=== PATIENT | female | born 2000 | race Caucasian/White ===

== ENCOUNTER 2024-06-23 09:55 | Outpatient (OUT) | payer BC, SELFPAY ==
--- NOTE | 2024-06-23 10:00 | US_ITS ---
[address] [address] Patient Name: EMILY ESCALERA MRN: [id number] date: 2000 Sex: F Assigned Patient Location: [facility] Current Patient Location: [facility] Accession/Order Number: [id number] Exam Date: 06/23/2024 10:01 Report Date: 06/23/2024 11:44 At the request of: DOMENICO AGUILERA Procedure: US OB transvaginal EXAMINATION: US OB transvaginal HISTORY: MISSED MENSES COMPARISON: No relevant comparison available. FINDINGS: Transvaginal imaging Carrasco intrauterine gestation Gestational sac: 3.11 cm, 8 weeks 0 days CRL: 2.01 cm, 8 weeks 4 days Yolk sac: 5.8 mm Heart rate: 174 beats minute Cervix: Closed, 4.1 cm The uterus is normal, anteverted, anteflexed The right ovary is normal. The left ovary is not visualized Clinical age: 10 weeks 0 days Clinical MONTEZ: 01/15/2025 Ultrasound age: 8 weeks 4 days Ultrasound MONTEZ: 01/29/2025 US/US OB transvaginal IMPRESSION: Viable carrasco intrauterine gestation measuring 8 weeks 4 days Electronically authenticated by: MAY PATTEN Date: 06/23/2024 11:44
== END 2024-06-23 09:56 | disposition home or self-care (01) ==
LOC: NOMS 09:56
PROVIDERS: Visit Provider Obstetrics & Gynecology
DX: Z34.91 Encounter for supervision of normal pregnancy, unspecified, first trimester (principal); Z3A.08 8 weeks gestation of pregnancy; N92.6 Irregular menstruation, unspecified
CPT/HCPCS: 76817

== ENCOUNTER 2024-07-20 16:13 | Outpatient (OUT) | payer BC, SELFPAY ==
[2024-07-20 16:46] LABS: Basophils Absolute Auto 0.1 10^3/uL (0.0-0.1); Basophils Percent Auto 0.4 % (0.2-2.0); Eosinophils Absolute Auto 0.1 10^3/uL (0.0-0.7); Eosinophils Percent Auto 0.4 % (0.9-7.0); Hematocrit 41.7 % (36.0-48.0); Hemoglobin 13.9 g/dL (12.0-16.0); Immature Granulocytes Abs Auto 0.05 10^3/uL (0.00-0.03); Immature Granulocytes Pct Auto 0.4 % (0.0-0.5); Lymphocytes Absolute Auto 3.7 10^3/uL (1.2-3.8); Lymphocytes Percent Auto 29.6 % (20.5-60.0); Mean Corpuscular HGB Conc 33.3 g/dL (29.9-35.2); Mean Corpuscular Volume 92.9 fL (81.0-99.0); Mean Platelet Volume 9.9 fL (9.5-13.5); Monocytes Absolute Auto 0.8 10^3/uL (0.3-0.8); Monocytes Percent Auto 6.5 % (1.7-12.0); Neutrophils Absolute Auto 7.9 10^3/uL (1.4-6.5); Neutrophils Percent Auto 62.7 % (43.0-75.0); Platelet Count 326 10^3/uL (150-450); Red Blood Count 4.49 10^6/uL (4.20-5.40); Red Cell Distribution Width 12.6 % (11.0-15.0); White Blood Count 12.5 10^3/uL (4.0-11.0)
[2024-07-20 17:00] LABS: BOX Test Reference Lab UNITY; BOX Test Sent Out UNITY
[2024-07-20 17:06] LABS: Estimated Average Glucose 97 mg/dL
[2024-07-20 17:26] LABS: Amphetamine Screen Urine NEGATIVE (NEGATIVE); Barbiturates Screen Urine NEGATIVE (NEGATIVE); Benzodiazepines Screen Urine NEGATIVE (NEGATIVE); Buprenorphine Screen Urine NEGATIVE (NEGATIVE); Cannabinoid Screen Urine NEGATIVE (NEGATIVE); Cocaine Screen Urine NEGATIVE (NEGATIVE); Methadone Screen Urine NEGATIVE (NEGATIVE); Methamphetamines Screen Urine NEGATIVE (NEGATIVE); Opiate Screen Urine NEGATIVE (NEGATIVE); Oxycodone Screen Urine NEGATIVE (NEGATIVE); Phencyclidine Screen Urine NEGATIVE (NEGATIVE); Tricyclic Antidepressant Urine NEGATIVE (NEGATIVE)
[2024-07-22 06:13] LABS: HBsAg Screen Negative (Negative); HCV Ab Non Reactive (Non Reactive); HIV Ab/p24 Ag Screen Non Reactive (Non Reactive)
[2024-07-22 08:19] LABS: Rubella Antibodies, IgG 4.34 index (Immune >0.99)
[2024-07-22 10:15] LABS: Rapid Plasma Reagin, Quant Non Reactive titer (NonRea<1:1)
== END 2024-07-20 16:14 | disposition home or self-care (01) ==
LOC: LAB 16:19
PROVIDERS: Visit Provider Obstetrics & Gynecology
DX: Z34.91 Encounter for supervision of normal pregnancy, unspecified, first trimester (principal); Z36.0 Encounter for antenatal screening for chromosomal anomalies; N92.6 Irregular menstruation, unspecified
CPT/HCPCS: 36415; 80307; 83036; 85025; 86592; 86762; 86803; 86850; 86900; 86901; 87086; 87340; 87389

== ENCOUNTER 2024-09-11 18:31 | Emergency (ER) | payer BC, SELFPAY ==
[2024-09-11 18:38] VITALS: BP 150/97; PULSE 90; TEMP 36.7; O2SAT 100; BMI 78.1
[2024-09-11 18:50] VITALS: O2SAT 99
--- NOTE | 2024-09-11 18:51 | XR_ITS ---
[address] [address] Patient Name: EMILY ESCALERA MRN: [id number] date: 2000 Sex: F Assigned Patient Location: ER Current Patient Location: Accession/Order Number: [id number] Exam Date: 09/11/2024 19:16 Report Date: 09/11/2024 20:24 At the request of: BRANDON CARRINGTON Procedure: XR chest 1V EXAM: XR chest 1V HISTORY: Cough COMPARISON: None. TECHNIQUE: AP upright chest x-ray FINDINGS: Lungs clear without infiltrate or edema. Normal heart size and mediastinal contour. No pleural effusion or pneumothorax. XR/XR chest 1V IMPRESSION: Negative chest x-ray, no acute abnormality. Clear lungs. Electronically authenticated by: YU COFFMAN Date: 09/11/2024 20:24
--- NOTE | 2024-09-11 18:51 | ECG_ITS ---
[facility] Test Date: 2024-09-11 Pat Name: EMILY ESCALERA Department: Room: - Gender: Female Insurance Counsel: : 2000 Requested By: [id number] Order Number: [id number] Reading MD: JOSE MONDRAGON Measurements Intervals Colver Rate: 97 P: 68 VT: 132 QRS: 70 QRSD: 102 T: 13 QT: 354 QTc: 409 Interpretive Statements 1100 Sinus rhythm 2420 RSR (QR) in lead V1/V2, consistent with right ventricular conduction delay 9130 borderline ECG No previous ECG available for comparison Electronically Signed On 09-11-2024 23:13:03 EST by JOSE MONDRAGON
--- NOTE | 2024-09-11 18:53 | ED_ITS ---
HPI - SOB/Dyspnea General Chief Complaint: Shortness of Breath/Dyspnea Stated Complaint: sob Time Seen by Provider: 09/11/24 18:48 Source: patient Mode of arrival: walk-in Limitations: no limitations History of Present Illness HPI Narrative: Patient is a 24-year-old female who presents to the emergency department at 20 weeks of for flulike illness over the last 4 days. Patient states she has had cough and congestion, the cough worsened in the last 2 days and she states yesterday she was coughing so hard that she was vomiting her dinner. She states she has had poor appetite today. She has not had any fevers, persistent diarrhea. No medications taken prior to arrival. She states she was concerned because 2 weeks ago she was exposed to someone with pneumonia. She was drinking a [employer] energy drink on arrival to the ER. She states when she is coughing and lays flat, she feels short of breath. She is noted to be afebrile with normal vital signs on arrival. Related Data Previous Rx's ?Medication ?Instructions ?Recorded albuterol sulfate 90 mcg/actuation 2 inh inhalation Q4H PRN shortness 09/11/24 aerosol inhaler of breath or wheezing #8.5 grams ondansetron 4 mg disintegrating 4 mg PO Q6H PRN nausea and 09/11/24 tablet vomiting #12 tabs Allergies Allergy/AdvReac Type Severity Reaction Status Date / Time No Known Drug Allergies Allergy Verified 09/11/24 18:43 Review of Systems ROS Constitutional Denies: fever or chills Ears, nose, mouth, and throat Reports: nasal congestion Cardiovascular Denies: chest pain Respiratory Reports: shortness of breath and cough Gastrointestinal Reports: nausea and vomiting; Denies: diarrhea Musculoskeletal Denies: back pain or neck pain Integumentary/Breast Denies: rash Neurological Denies: numbness in extremities or weakness in extremities Hematologic/Lymphatic Denies: easy bruising or easy bleeding PFSH PFSH Social History Little interest or pleasure in doing things: not at all Feeling down, depressed, or hopeless: not at all Exam Narrative Exam Narrative: Gen.: Awake, alert, in no distress Head: Normocephalic, atraumatic ENT: Moist mucous membranes, bilateral TMs clear, no pharyngeal erythema Respiratory: No respiratory distress, lungs clear bilaterally; no coughing or wheezing noted Cardio: Regular rate and rhythm Gastrointestinal: Abdomen is soft, nondistended and nontender to palpation Extremities: Moves extremities equally Psych: Normal mood and affect Neuro: No focal neuro deficit Skin: Warm, dry, intact Constitutional Vital Signs, click to edit/add: Last Vital Signs Temp 98.1 F 09/11/24 18:38 Pulse 79 09/11/24 19:24 Resp 16 09/11/24 19:24 BP 150/97 H 09/11/24 18:38 Pulse Ox 98 09/11/24 19:24 O2 Del Method Room Air 09/11/24 19:24 Course Vital Signs Vital signs: Vital Signs Temperature 98.1 F 09/11/24 18:38 Pulse Rate 90 09/11/24 18:38 Respiratory Rate 20 09/11/24 18:38 Blood Pressure 150/97 H 09/11/24 18:38 Pulse Oximetry 100 09/11/24 18:38 Temperature 98.1 F 09/11/24 18:38 Pulse Rate 79 09/11/24 19:24 Respiratory Rate 16 09/11/24 19:24 Blood Pressure 150/97 H 09/11/24 18:38 Pulse Oximetry 98 09/11/24 19:24 Oxygen Delivery Method Room Air 09/11/24 19:24 MDM - SOB/Dyspnea MDM Narrative Medical decision making narrative: FHT 150 on arrival No episodes of emesis in the emergency room, Zofran and albuterol given. Chest x-ray is clear, lab studies are unremarkable and respiratory swabs are negative. Patient treated with albuterol and Zofran for home. Follow-up with PCP and return to the ER if symptoms change or worsen SUPERVISED APC VISIT, PHYSICIAN ATTESTATION: Based on the medical record the care appears appropriate. ? Medical Records Attestation: I reviewed the patient's medical records. Lab Data Attestation: I reviewed the patient's lab results. Labs: Lab Results 09/11/24 09/11/24 Range/Units 18:58 19:22 WBC 12.5 H (4.0-11.0) 10^3/uL RBC 4.58 (4.20-5.40) 10^6/uL Hgb 13.9 (12.0-16.0) g/dL Hct 41.7 (36.0-48.0) % MCV 91.0 (81.0-99.0) fL MCH 30.3 (26.7-34.0) pg MCHC 33.3 (29.9-35.2) g/dL RDW 12.5 (11.0-15.0) % Plt Count 311 (150-450) 10^3/uL MPV 10.0 (9.5-13.5) fL Neut % (Auto) 61.1 (43.0-75.0) % Lymph % (Auto) 30.1 (20.5-60.0) % [place] % (Auto) 6.3 (1.7-12.0) % Eos % (Auto) 1.6 (0.9-7.0) % Baso % (Auto) 0.4 (0.2-2.0) % Neut # (Auto) 7.6 H (1.4-6.5) 10^3/uL Lymph # (Auto) 3.8 (1.2-3.8) 10^3/uL [place] # (Auto) 0.8 (0.3-0.8) 10^3/uL Eos # (Auto) 0.2 (0.0-0.7) 10^3/uL Baso # (Auto) 0.1 (0.0-0.1) 10^3/uL Abs Immat Gran (auto) 0.06 H (0.00-0.03) 10^3/uL Imm/Tot Granulo (auto) 0.5 (0.0-0.5) % Sodium 139 (136-145) mmol/L Potassium 3.5 (3.5-5.1) mmol/L Chloride 104 (98-107) mmol/L Carbon Dioxide 25.4 (21.0-32.0) mmol/L Anion Gap 13.1 BUN 10.0 (7.0-18.0) mg/dL Creatinine 0.72 (0.55-1.02) mg/dL Est GFR ( Amer) >60 (>=60 mL/min/1.73m^2) Est GFR (Non-Af Amer) >60 (>=60 mL/min/1.73m^2) BUN/Creatinine Ratio 13.9 Glucose 86 (74-106) mg/dL Calcium 9.0 (8.5-10.1) mg/dL Influenza Type A Ag Negative Influenza Type B Ag Negative SARS-CoV-2 Ag (CV2AG) Negative (NEGATIVE) Imaging Data Chest x-ray: Attestation: I have reviewed the pertinent imaging results. ECG Data Attestation: I personally reviewed and interpreted this ECG as follows: (Normal sinus rhythm at a rate of 97, no acute ST elevation or ectopy. EKG reviewed by attending physician) Discharge Plan Discharge Chief Complaint: Shortness of Breath/Dyspnea Clinical Impression: Cough, Vomiting Patient Disposition: Home, Self-Care Time of Disposition Decision: 19:54 Condition: Good Prescriptions / Home Meds: New albuterol sulfate 90 mcg/actuation HFA aerosol inhaler 2 inh inhalation Q4H PRN (Reason: shortness of breath or wheezing) Qty: 8.5 0RF ondansetron 4 mg tablet,disintegrating 4 mg PO Q6H PRN (Reason: nausea and vomiting) Qty: 12 0RF Print Language: Italian Instructions: Acute Nausea and Vomiting (ED), Acute Cough (ED) Referrals: Physician,Non-Staff, MD [Primary Care Provider] - 1 week
--- OUTSIDE RECORDS SUMMARY | 2024-09-11 18:54 | XMS_ITS | CCD ---
Author Organization [facility] Care Team Providers Care Rooming House Inspector Name Role Phone Unavailable Primary Care Provider DOMENICO Vickers Attending Unavailable GRETCHEN JAMESON Attending Unavailable Problems Problem Classification Problem Date Documented Da te Episodic/Chronic Genitourinary symptoms and ill-defined conditions (2 sources) Blood in urine; Translations: [Hematuria, unspecified] 07-25-2024 Episodic Other and delivery including normal (4 sources) Second trimester ; Translations: [Encounter for supervision of normal , unspecified, second trimester] 07-25-2024 Episodic Other screening for suspected conditions (not mental disorders or infectious disease) (2 sources) Patient encounter status; Translations: [Encounter for other specified screening] 08-22-2024 Episodic Residual codes; unclassified (2 sources) Gestation period, 13 weeks; Translations: [13 weeks gestation of ] 07-25-2024 Episodic Residual codes; unclassified (2 sources) Gestation period, 17 weeks; Translations: [17 weeks gestation of ] 08-22-2024 Episodic Results Test Name Value Interpretation Reference Range Facil ity Urinalysis macro (dipstick) panel (U)on 08-22-2024 Bilirubin, UA Negative Negative - 4(70) +++ mg/dL [facility] Healthcare Blood, UA Negative Negative - 50 Daniel/mcL [facility] Clarity, UA Clear [facility] Color, UA Yellow [facility] Glucose, UA Negative Negative - 1999(110) ++++ mg/dL [facility] Healthcare Interpretation and review of laboratory results Abnormal [facility] Ketones, UA Negative Negative - 160(16) ++++ mg/dL [facility] Healthcare Leukocytes, UA Moderate Negative - 500+++ Brando/mcL [facility] Nitrite, UA Negative Negative - Positive [facility] pH, UA 5 5 - 9 [facility] Protein, UA Negative Negative - 1999(20) ++++ mg/dL [facility] Spec Grav, UA 1.015 1 - 1.03 [facility] Urobilinogen, UA 0.2 0.2 - 12 mg/dL [facility] No Panel Informationon 07-26 STAPHYLOCOCCUS EPIDERMIDIS, HAEMOLYTICUS, LUGDUNENSIS, SAPROPHYTICUS (URINA 0 [facility] STAPHYLOCOCCUS EPIDERMIDIS, HAEMOLYTICUS, LUGDUNENSIS, SAPROPHYTICUS (URINA Not detected [facility] URINARY TRACT INFECTION (HTR X)on 07-26-2024 ACINETOBACTER BAUMANII 0 [facility] ACINETOBACTER BAUMANII Not detected [facility] MARIO ALBICANS, PARAPSILOSIS, TROPICALIS 0 [facility] MARIO ALBICANS, PARAPSILOSIS, TROPICALIS Not detected [facility] MARIO GLABRATA 0 [facility] MARIO GLABRATA Not detected [facility] MARIO KRUSEI 0 [facility] MARIO KRUSEI Not detected [facility] CITROBACTER FREUNDII 0 [facility] CITROBACTER FREUNDII Not detected NO [facility] ENTEROBACTER AEROGENES, CLOACAE 0 [facility] re ENTEROBACTER AEROGENES, CLOACAE Not detected [facility] re ENTEROCOCCUS FAECALIS, FAECIUM 0 [facility] e ENTEROCOCCUS FAECALIS, FAECIUM Not detected [facility] e ESCHERICHIA COLI 0 [facility] ESCHERICHIA COLI Not detected [facility] ealthcare KLEBSIELLA PNEUMONIAE, OXYTOCA 0 [facility] are KLEBSIELLA PNEUMONIAE, OXYTOCA Not detected [facility] are MORGANELLA MORGANII 0 [facility] MORGANELLA MORGANII Not detected [facility] PROTEUS MIRABILIS, VULGARIS 0 [facility] PROTEUS MIRABILIS, VULGARIS Not detected [facility] PSEUDOMONAS AERUGINOSA 0 [facility] PSEUDOMONAS AERUGINOSA Not detected [facility] SERRATIA MARCESCENS 0 [facility] SERRATIA MARCESCENS Not detected [facility] STAPHYLOCOCCUS AUREUS 0 [facility] STAPHYLOCOCCUS AUREUS Not detected [facility] STREPTOCOCCUS AGALACTIAE (GROUP B STREP) 0 [facility] STREPTOCOCCUS AGALACTIAE (GROUP B STREP) Not detected [facility] STREPTOCOCCUS PYOGENES (GROUP A STREP) 0 [facility] STREPTOCOCCUS PYOGENES (GROUP A STREP) Not detected [facility] Urinalysis macro (dipstick) panel (U)on 07-25-2024 Bilirubin, UA Negative Negative - 4(70) +++ mg/dL [facility] Blood, UA Positive Negative - 50 Daniel/mcL [facility] Comment on above: trace-intact Clarity, UA Clear [facility] Healthny re Color, UA Yellow [facility] Glucose, UA Negative Negative - 1999(110) ++++ mg/dL [facility] Interpretation and review of laboratory results Abnormal [facility] Ketones, UA Negative Negative - 160(16) ++++ mg/dL [facility] Leukocytes, UA Positive Negative - 500+++ Brando/mcL [facility] Comment on above: small Nitrite, UA Negative Negative - Positive [facility] pH, UA 5.5 5 - 9 [facility] Healthcar e Protein, UA Negative Negative - 1999(20) ++++ mg/dL [facility] Spec Grav, UA 1.01 1 - 1.03 [facility] Urobilinogen, UA 0.2 0.2 - 12 mg/dL [facility] BOX TESTon 07-20-2024 BOX TEST SENT OUT [facility] althcare [address]OX[address] [facility] Healthcar e BOX2 07/20/2024 [facility] Healthcar e UNITY BOX [facility] Healthcar e XR knee RT 2Von 05-15-2021 XR knee RT 2V [facility] Main [place] [address] [place] [address] XRay Report Signed Patient: Britton Wilson MR#: [id number] : 2000 Acct:[id number] Age/Sex: 21 / F ADM Date: 05/15/21 Loc: [facility] Room: Type: [facility] Attending Dr: Benjamín Smith MD Ordering Provider: Benjamín Smith MD Date of Service: 05/15/21 XR/XR knee RT 2V: M25.561 Copies to: Benjamín Smith MD 2 views RIGHT knee plain film COMPARISON:None HISTORY:RIGHT knee pain for one week. No injury No fracture, dislocation or focal soft tissue abnormality seen.. No suprapatellar effusion. XR/XR knee RT 2V IMPRESSION:Unremark able exam Impression dictated by: Abelardo Romo M.D.05/15/2021 1:54 PM Dictation Location: RADIO-PC-11 Transcribed By: MARYANN 05/15/21 1354 Dictated By: Abelardo Romo DO 05/15/21 1349 Signed By: 05/15/21 1354 [facility] Vital Signs Date Time Vital Sign Value Performing Clinician Dieudonne riddle 08-22-2024 14:59-0500 Body weight 108.14 kg Gretchen CARCAMO Work Phone: [facility] 08-22-2024 14:59-0500 Diastolic blood pressure 62 mm[Hg] Gretchen CARCAMO Work Phone: [facility] 08-22-2024 14:59-0500 Systolic blood pressure 100 mm[Hg] Gretchen CARCAMO Work Phone: [facility] 07-25-2024 09:40-0400 Body weight 105.23 kg Domenico Jorge DO Work Phone: [facility] 07-25-2024 09:40-0400 Diastolic blood pressure 74 mm[Hg] Domenico Jorge DO Work Phone: [facility] 07-25-2024 09:40-0400 Systolic blood pressure 110 mm[Hg] Domenico Jorge DO Work Phone: [facility] Healthcare Encounters Encounter Date Encounter Type Care Provider Facility Start: 08-22-2024 End: 08-22-2024 ambulatory GRETCHEN JAMESON Not Available Start: 08-22-2024 End: 08-22-2024 flow sheet Gretchen CARCAMO Work Phone: [facility] Comment on above: Second trimester pre gnancy; 17 weeks gestation of ; Screening, , for anatomic survey Start: 08-22-2024 End: 08-22-2024 Bamboo flowsheet Grethcen CARCAMO Work Phone: [facility] Start: 08-22-2024 End: 08-22-2024 Bamboo flowsheet Gretchen CARCAMO Work Phone: [facility] Start: 07-25-2024 End: 07-25-2024 Bamboo flowsheet Odmenico Jorge DO Work Phone: [facility] Start: 07-25-2024 End: 07-26-2024 Bamboo flowsheet Domenico Jorge DO Work Phone: [facility] Start: 07-25-2024 End: 07-26-2024 External Result Encounter Domenico Jorge DO Work Phone: [facility] Unsolicited Start: 07-25-2024 End: 07-25-2024 ambulatory DOMENICO JORGE Not Available Start: 07-25-2024 End: 07-25-2024 flow sheet Domenico Jorge DO Work Phone: [facility] Comment on above: Second trimester pre gnancy; 13 weeks gestation of ; Hematuria, unspecified type Start: 07-20-2024 End: 07-20-2024 [facility] Result Encounter Domenico Jorge DO Work Phone: [facility] Unsolicited Start: 07-20-2024 End: 07-20-2024 [facility] Result Encounter Domenico Jorge DO Work Phone: [facility] Unsolicited Start: 06-23-2024 End: 06-23-2024 ambulatory DOMENICO JORGE Not Available Procedures Date Procedure Procedure Detail Performing Clinician Start: 08-22-2024 Urnls dip stick/tabl et rgnt non-auto w/o micrscp Gretchen CARCAMO Work Phone: Start: 07-25-2024 URINARY TRACT INFECT ION (HTRX) Domenico Jorge DO Work Phone: Start: 07-25-2024 Urnls dip stick/tabl et rgnt non-auto w/o micrscp Domenico Jorge DO Work Phone: Start: 07-20-2024 BOX TEST Domenico Fazi o DO Work Phone: Plan of Treatment Date Care Activity Detail Author Start: 09-21-2024 End: 09-21-2024 Patient encounter procedure 09/21/2024 9:20 AM EST Routine [facility] [address] [place] [address] Domenico Patel, DO [address] [place] [address] [facility] Start: 08-22-2024 End: 08-22-2024 Patient encounter procedure 08/22/2024 2:40 PM EST Routine [facility] [address] [place] [id number] Gretchen Jameson PA [address] [place] [address] [facility] Start: 08-22-2024 End: 10-22-2024 Alpha fetoprotein, maternal Alpha fetoprotein, maternal Lab Routine Second trimester 17 weeks gestation of Expected: 08/22/2024 (Approximate), Expires: 10/22/2024 [facility] Work Phone: Comment on above: Expected: 08/22/2024 (Approximate), Expires: 10/22/2024 Start: 08-22-2024 End: 08-22-2025 US for US OB ANATOMY SINGLE W US OB CERVICAL LENGTH Imaging Routine Screening, , for anatomic survey Expected: 08/22/2024 (Approximate), Expires: 08/22/2025 [facility] Comment on above: Expected: 08/22/2024 (Approximate), Expires: 08/22/2025 Start: 07-25-2024 End: 07-25-2024 Patient encounter procedure 07/25/2024 9:10 AM EDT Routine [facility] [address] [place] [id number] Domenico Patel, DO [address] [place], [place] [id number] [facility] Start: 06-11-2024 Influenza vaccination Influenza Vacc ine (#1) [facility] Bacteria identified in Urine by Culture Urine culture Microbiology Routine Hematuria, unspecified type Ordered: 07/25/2024 [facility] Work Phone: Comment on above: Ordered: 07/25/2024 Payers Date Payer Category Payer Blue Cross Blue Shield BCBS Memb er Subscriber Plan / Payer (Effective 2023-Present) Name: Britton Wilson Relation to Subscriber: Child Name: ALISON WILSON Date of : 1973 Address: [address] [place] [address] Payer ID: Not on file Type: Not on file Address: [address] [place] [id number] 2023 Unknown BCBS BCBS xxxxxx [id number] 2023-Present [phone] [address] [place] [address] [id number] 2023 Unknown [id number] 2000 Unknown [id number] 2002 Unknown [id number] 2002 Unknown [id number] Social History Date Type Detail Facility [facility] Start: 05-08-2024 [facility] Start: 2000 Sex assigned at Not on file [facility] Start: 07-25-2024 Gender identity Not on file [facility] Start: 07-25-2024 [facility] tobacco [facility] Start: 07-25-2024 Tobacco use and exposure Smokeless t obacco non-user [facility] Start: 07-25-2024 End: 08-22-2024 Alcoholic beverage intake Ex-drinker (finding) [facility] Start: 07-25-2024 History of Social function [facility] History of Present illness Narrative 08-22-2024 DONA Vieyra - 08/22/2024 2:40 PM ESTSusaeunice StephensFABIANA - 08/22/2024 2:40 PM EST Note Date & Type Note Facility 08-22-2024 History of Presen t illness Narrative Reason for Appointment: Patient ID: Britton Wilson is a 24 y.o. female who presents for Routine Visit Patient presents today for Return OB appointment. MEDICATIONS No current outpatient medications ALLERGIES No Known Allergies PROBLEMS Active Ambulatory Problems Diagnosis Date Noted No Active Ambulatory Problems Resolved Ambulatory Problems Diagnosis Date Noted No Resolved Ambulatory Problems Past Medical History: Diagnosis Date History of PCOS HISTORY PAST MEDICAL HISTORY SOCIAL HISTORY Past Medical History: Diagnosis Date History of PCOS Social History Tobacco Use Smoking status: Never Smokeless tobacco: Never Substance Use Topics Alcohol use: Not Currently Drug use: Never FAMILY HISTORY No family history on file. SURGICAL HISTORY Past Surgical History: Procedure Laterality Date ADENOIDECTOMY REVIEW OF SYSTEMS Review of Systems: Review of Systems Constitutional: Negative. HENT: Negative. Eyes: Negative. Respiratory: Negative. Cardiovascular: Negative. Gastrointestinal: Negative. Genitourinary: Negative. Musculoskeletal: Negative. Skin: Negative. Neurological: Negative. All other systems reviewed and are negative. Hematological: Negative. Endocrine: Negative. Allergic/Immunologic: Negative. OBJECTIVE Objective: Physical Exam Constitutional: Appearance: Normal appearance. She is normal weight. HENT: Head: Normocephalic. Cardiovascular: Rate and Rhythm: Normal rate. Pulses: Normal pulses. Pulmonary: Effort: Pulmonary effort is normal. Breath sounds: Normal breath sounds. Abdominal: Palpations: Abdomen is soft. Musculoskeletal: General: Normal range of motion. Neurological: General: No focal deficit present. Mental Status: She is alert and oriented to person, place, and time. Psychiatric: Mood and Affect: Mood normal. Behavior: Behavior normal. Thought Content: Thought content normal. Judgment: Judgment normal. Vitals and nursing note reviewed. Vitals: There is no height or weight on file to calculate BMI. BP: 100/62 Patient's last menstrual period was 04/14/2024. ASSESSMENT & PLAN ICD-10-CM 1. Second trimester Z34.92 POCT urinalysis dipstick manually resulted Alpha fetoprotein, maternal Alpha fetoprotein, maternal 2. 17 weeks gestation of Z3A.17 POCT urinalysis dipstick manually resulted Alpha fetoprotein, maternal Alpha fetoprotein, maternal 3. Screening, , for anatomic survey Z36.89 US OB ANATOMY SINGLE W US OB CERVICAL LENGTH Return OB: Patient presents today for a routine obstetrics appointment. Patient is currently 17w1d . Patient states she is doing well but has complaints of being tired due to current . Patient has verbalizes frequent movement. Orders Placed This Encounter Procedures US OB ANATOMY SINGLE W US OB CERVICAL LENGTH Alpha fetoprotein, maternal POCT urinalysis dipstick manually resulted Follow Up: Patient is to return to office in 4week for routine OB appointment. Documented by Gloria Stephens LPN on behalf of: DONA Vieyra Patient was also notified at today's appointment about +Carrier Screening for Spinal Muscular Atrophy, but low risk for fetus. Patient verbalized understanding and aware referral will be made to [facility] for genetic Counseling. Referral will be completed and patient will then be notified. Gloria Quiñonez LPN documented in this encounter [facility] History of Present illness Narrative 07-25-2024 Emmie Schmidt LPN - 07/25/2024 9:10 AM EDT Note Date & Type Note Facility 07-25-2024 History of Presen t illness Narrative Reason for Appointment: Patient ID: Britton Wilson is a 24 y.o. female who presents for Routine Visit Patient presents today for Return OB appointment. MEDICATIONS No current outpatient medications ALLERGIES No Known Allergies PROBLEMS Active Ambulatory Problems Diagnosis Date Noted No Active Ambulatory Problems Resolved Ambulatory Problems Diagnosis Date Noted No Resolved Ambulatory Problems Past Medical History: Diagnosis Date History of PCOS HISTORY PAST MEDICAL HISTORY SOCIAL HISTORY Past Medical History: Diagnosis Date History of PCOS Social History Tobacco Use Smoking status: Never Smokeless tobacco: Never Substance Use Topics Alcohol use: Not Currently Drug use: Never FAMILY HISTORY No family history on file. SURGICAL HISTORY Past Surgical History: Procedure Laterality Date ADENOIDECTOMY REVIEW OF SYSTEMS Review of Systems: Review of Systems Constitutional: Negative. HENT: Negative. Eyes: Negative. Respiratory: Negative. Cardiovascular: Negative. Gastrointestinal: Negative. Genitourinary: Negative. Musculoskeletal: Negative. Skin: Negative. Neurological: Negative. All other systems reviewed and are negative. Hematological: Negative. Endocrine: Negative. Allergic/Immunologic: Negative. OBJECTIVE Objective: Physical Exam Constitutional: Appearance: Normal appearance. She is well-developed. Cardiovascular: Rate and Rhythm: Normal rate and regular rhythm. Pulmonary: Effort: Pulmonary effort is normal. Breath sounds: Normal breath sounds. Abdominal: General: Bowel sounds are normal. There is no distension. Palpations: Abdomen is soft. Tenderness: There is no abdominal tenderness. There is no guarding or rebound. Musculoskeletal: General: No swelling. Normal range of motion. Right lower leg: No edema. Left lower leg: No edema. Neurological: Mental Status: She is alert and oriented to person, place, and time. Skin: General: Skin is warm and dry. Psychiatric: Mood and Affect: Mood normal. Behavior: Behavior normal. Vitals and nursing note reviewed. Exam conducted with a beveler present. Vitals: There is no height or weight on file to calculate BMI. BP: 110/74 Patient's last menstrual period was 04/14/2024. ASSESSMENT & PLAN ICD-10-CM 1. Second trimester Z34.92 POCT urinalysis dipstick manually resulted 2. 13 weeks gestation of Z3A.13 POCT urinalysis dipstick manually resulted New OB: Patient presents today for 1st time obstetrics appointment with provider. Patient is currently 13w1d . Patients history has been reviewed in great detail including any potential risks. Patient stated she currently has no complaints. Expectations throughout regarding labs, ultrasounds, and appointments have been discussed with the patient in detail. It was reiterated that the patient is to drink 6-8 glasses of water a day, eat 6 small meals a day, do not consume raw or undercooked meat, and stay away from [facility]. Patient has been consulted regarding any further do's and don'ts of . Patient voiced understanding and all questions and concerns were answered. Orders Placed This Encounter Procedures POCT urinalysis dipstick manually resulted Follow Up: Patient is to return in 4 weeks for routine OB appointment. Documented by Emmie Schmidt LPN on behalf of: Domenico Patel DO documented in this encounter [facility] Evaluation note Note Date & Type Note Facility Evaluation note Diagnosis Second trimester state, incidental 13 weeks gestation of Hematuria, unspecified type documented in this encounter [facility] Evaluation note Note Date & Type Note Facility Evaluation note Diagnosis Second trimester state, incidental 17 weeks gestation of Screening, , for anatomic survey Encounter for anatomic survey documented in this encounter [facility] Summary Purpose Family History No Family History Records FoundNo Family History Records Found Advance Directives No Advanced Directives Records FoundNo Advanced Directives Records Found Additional Source Comments INFORMATION SOURCE (unrecogn ized section and content) DATE CREATED AUTHOR 11/03/2021 [facility] DATE CREATED AUTHOR AUTHOR'S ORGANIZ ATION 08/24/2024 [facility] EPIC Reason for Visit (unrecogniz ed section and content) Reason Comments Routine Visit FOR RECORDS PERTAINING TO PATIENTS WHO ARE OR HAVE BEEN ENROLLED IN A CHEMICAL DEPENDENCY/SUBSTANCEABUSE PROGRAM, SOME INFORMATION MAY BE OMITTED. This clinical summary was aggregated from multiple sources. Caution should be exercised in using it in the provision of clinical care. This summary normalizes information from multiple sources, and as a consequence, information in this document may materially change the coding, format and clinical context of patient data. In addition, data may be omitted in some cases. CLINICAL DECISIONS SHOULD BE BASED ON THE PRIMARY CLINICAL RECORDS. [facility] [employer] provides no warranty or guarantee of the accuracy or completeness of information in this document.
[2024-09-11] MEDS: 0.9 % SODIUM CHLORIDE 500 ML IV (19:10)
[2024-09-11] MEDS: ONDANSETRON PF 4 MG/2 ML VIAL IV (19:10)
[2024-09-11 19:15] LABS: Basophils Absolute Auto 0.1 10^3/uL (0.0-0.1); Basophils Percent Auto 0.4 % (0.2-2.0); Eosinophils Absolute Auto 0.2 10^3/uL (0.0-0.7); Eosinophils Percent Auto 1.6 % (0.9-7.0); Hematocrit 41.7 % (36.0-48.0); Hemoglobin 13.9 g/dL (12.0-16.0); Immature Granulocytes Abs Auto 0.06 10^3/uL (0.00-0.03); Immature Granulocytes Pct Auto 0.5 % (0.0-0.5); Lymphocytes Absolute Auto 3.8 10^3/uL (1.2-3.8); Lymphocytes Percent Auto 30.1 % (20.5-60.0); Mean Corpuscular HGB Conc 33.3 g/dL (29.9-35.2); Mean Corpuscular Hemoglobin 30.3 pg (26.7-34.0); Monocytes Absolute Auto 0.8 10^3/uL (0.3-0.8); Monocytes Percent Auto 6.3 % (1.7-12.0); Neutrophils Absolute Auto 7.6 10^3/uL (1.4-6.5); Neutrophils Percent Auto 61.1 % (43.0-75.0); Platelet Count 311 10^3/uL (150-450); Red Blood Count 4.58 10^6/uL (4.20-5.40); Red Cell Distribution Width 12.5 % (11.0-15.0); White Blood Count 12.5 10^3/uL (4.0-11.0)
[2024-09-11] MEDS: ALBUTEROL SULFATE 2.5 MG/3 ML VIAL NEB IH (19:21)
[2024-09-11 19:24] VITALS: PULSE 79; O2SAT 98
[2024-09-11 19:25] LABS: Anion Gap 13.1; BUN Creatinine Ratio 13.9; Carbon Dioxide 25.4 mmol/L (21.0-32.0); Chloride 104 mmol/L (98-107); Estimated GFR (African America >60 (>=60 mL/min/1.73m^2); Estimated GFR (Non-African Ame >60 (>=60 mL/min/1.73m^2); Glucose 86 mg/dL (74-106); Potassium 3.5 mmol/L (3.5-5.1); Sodium 139 mmol/L (136-145)
[2024-09-11 19:48] LABS: Influenza Virus A Antigen Negative; Influenza Virus B Antigen Negative; Internal Control Within Normal Limits; SARS-CoV-2 Ag NEGATIVE (NEGATIVE)
== END 2024-09-11 20:10 | disposition home or self-care (01) ==
PROVIDERS: Physician Assistant; Emergency Provider Emergency Medicine
DX: O99.891 Other specified diseases and conditions complicating pregnancy (principal); R05.9 Cough, unspecified; O21.9 Vomiting of pregnancy, unspecified; Z3A.20 20 weeks gestation of pregnancy
CPT/HCPCS: 36415; 71045; 80048; 85025; 87804; 87811; 93005; 94640; 96374; 99285; J2405

== ENCOUNTER 2024-09-15 18:52 | Outpatient (OUT) | payer BC, SELFPAY ==
--- NOTE | 2024-09-15 18:58 | US_ITS ---
[address] [address] Patient Name: EMILY ESCALERA MRN: [id number] date: 2000 Sex: F Assigned Patient Location: US Current Patient Location: Accession/Order Number: [id number] Exam Date: 09/15/2024 19:08 Report Date: 09/16/2024 06:59 At the request of: CHETAN JAMESON Procedure: US OB cervical length EXAMINATION: US OB anatomy, US OB cervical length HISTORY: SCREENING, , FOR ANATOMIC SURVEY Z36.89 COMPARISON: No relevant comparison available. TECHNIQUE: Transabdominal sonographic examination was performed for obstetrical and evaluation. FINDINGS: Number: 1 Heart Rate: 145.95 bpm H.B. /min Amniotic Fluid Volume: Subjectively normal Placental Location: POSTERIOR with lower margin 3.9 cm from os. Cervix Length: 3.2 cm ; closed. ANATOMY: Normal Structures -cerebellum, choroid plexus, cisterna magna, lateral cerebral ventricles, orbits, midline falx, hard palate, four-chamber heart, RVOT, LVOT, stomach, kidneys, bladder, umbilical cord insertion into abdomen, three-vessel cord, cervical spine, thoracic spine, lumbar spine, sacral spine, right upper extremity, left upper extremity, right lower extremity, left lower extremity. SUBOPTIMALLY SEEN: None ABNORMALITIES: None BIOMETRY: BPD: 5.04 cm; 21 weeks 2 days; 76.30 % HC: 18.38 cm; 20 weeks 5 days; 49.60 % AC: 16.23 cm; 21 weeks 2 days; 68.10 % FL: 3.46 cm; 20 weeks 6 days; 53.10 % EFW:398.46 g; 73.90 % FL/AC: 21.32 FL/BPD: 68.66 HC/AC: 1.13 GESTATIONAL AGE: Age by EDC: 20 weeks 4 days Age by current US: 21 weeks 0 days MONTEZ by current US: 2025-01-26 MONTEZ by EDC: 2025-01-29 US/US OB cervical length IMPRESSION: 1. Single live intrauterine with growth detailed above. Electronically authenticated by: YENI CASILLAS Date: 09/16/2024 06:59
--- NOTE | 2024-09-15 18:58 | US_ITS ---
[address] [address] Patient Name: EMILY ESCALERA MRN: [id number] date: 2000 Sex: F Assigned Patient Location: US Current Patient Location: Accession/Order Number: [id number] Exam Date: 09/15/2024 19:08 Report Date: 09/16/2024 06:59 At the request of: CHETAN JAMESON Procedure: US OB anatomy EXAMINATION: US OB anatomy, US OB cervical length HISTORY: SCREENING, , FOR ANATOMIC SURVEY Z36.89 COMPARISON: No relevant comparison available. TECHNIQUE: Transabdominal sonographic examination was performed for obstetrical and evaluation. FINDINGS: Number: 1 Heart Rate: 145.95 bpm H.B. /min Amniotic Fluid Volume: Subjectively normal Placental Location: POSTERIOR with lower margin 3.9 cm from os. Cervix Length: 3.2 cm ; closed. ANATOMY: Normal Structures -cerebellum, choroid plexus, cisterna magna, lateral cerebral ventricles, orbits, midline falx, hard palate, four-chamber heart, RVOT, LVOT, stomach, kidneys, bladder, umbilical cord insertion into abdomen, three-vessel cord, cervical spine, thoracic spine, lumbar spine, sacral spine, right upper extremity, left upper extremity, right lower extremity, left lower extremity. SUBOPTIMALLY SEEN: None ABNORMALITIES: None BIOMETRY: BPD: 5.04 cm; 21 weeks 2 days; 76.30 % HC: 18.38 cm; 20 weeks 5 days; 49.60 % AC: 16.23 cm; 21 weeks 2 days; 68.10 % FL: 3.46 cm; 20 weeks 6 days; 53.10 % EFW:398.46 g; 73.90 % FL/AC: 21.32 FL/BPD: 68.66 HC/AC: 1.13 GESTATIONAL AGE: Age by EDC: 20 weeks 4 days Age by current US: 21 weeks 0 days MONTEZ by current US: 2025-01-26 MONTEZ by EDC: 2025-01-29 US/US OB anatomy IMPRESSION: 1. Single live intrauterine with growth detailed above. Electronically authenticated by: YENI CASILLAS Date: 09/16/2024 06:59
== END 2024-09-15 18:53 | disposition home or self-care (01) ==
PROVIDERS: Visit Provider Physician Assistant
DX: Z36.89 Encounter for other specified antenatal screening (principal); Z3A.20 20 weeks gestation of pregnancy
CPT/HCPCS: 76805; 76817

== ENCOUNTER 2024-10-26 06:59 | Outpatient (OUT) | payer BC, SELFPAY ==
--- OUTSIDE RECORDS SUMMARY | 2024-10-26 07:02 | XMS_ITS | CCD ---
Author Organization [facility] Care Team Providers Care Phlebotomy Instructor Name Role Phone Unavailable Primary Care Provider DOMENICO Vickers Attending Unavailable GRETCHEN JAMESON Attending Unavailable DOMENICO PATEL Attending Unavailable Problems Problem Classification Problem Date Documented Da te Episodic/Chronic Genitourinary symptoms and ill-defined conditions (2 sources) Blood in urine; Translations: [Hematuria, unspecified] 07-25-2024 Episodic Menstrual disorders (1 source) Missed period; Translations: [Irregular menstruation, unspecified] 06-23-2024 Chronic Other complications of (2 sources) size does not accord with dates; Translations: [Uterine size-date discrepancy, unspecified trimester] 10-23-2024 Episodic Other and delivery including normal (15 sources) Second trimester ; Translations: [Encounter for supervision of normal , unspecified, second trimester] Onset: 09-21-2024 07-25-2024 Episodic Other screening for suspected conditions (not mental disorders or infectious disease) (4 sources) Patient encounter status; Translations: [Encounter for other specified screening] 08-22-2024 Episodic Residual codes; unclassified (2 sources) Gestation period, 13 weeks; Translations: [13 weeks gestation of ] 07-25-2024 Episodic Residual codes; unclassified (2 sources) Gestation period, 17 weeks; Translations: [17 weeks gestation of ] 08-22-2024 Episodic Residual codes; unclassified (7 sources) Gestation period, 21 weeks; Translations: [21 weeks gestation of ] Onset: 09-21-2024 09-21-2024 Episodic Residual codes; unclassified (2 sources) Gestation period, 26 weeks; Translations: [26 weeks gestation of ] 10-23-2024 Episodic Results Test Name Value Interpretation Reference Range Facil ity Urinalysis macro (dipstick) panel (U)on 09-21-2024 Bilirubin, UA Negative Negative - 4(70) +++ mg/dL [facility] Blood, UA Negative Negative - 50 Daniel/mcL [facility] Clarity, UA Clear [facility] Color, UA Yellow [facility] Glucose, UA Negative Negative - 1999(110) ++++ mg/dL [facility] Interpretation and review of laboratory results Abnormal [facility] Ketones, UA Negative Negative - 160(16) ++++ mg/dL [facility] Leukocytes, UA 1+ Negative - 500+++ Brando/mcL [facility] Nitrite, UA Negative Negative - Positive [facility] pH, UA 7 5 - 9 [facility] Protein, UA Trace Negative - 1999(20) ++++ mg/dL [facility] Spec Grav, UA 1.025 1 - 1.03 [facility] Urobilinogen, UA 0.2 0.2 - 12 mg/dL [facility] Urinalysis macro (dipstick) panel (U)on 08-22-2024 Bilirubin, UA Negative Negative - 4(70) +++ mg/dL [facility] Blood, UA Negative Negative - 50 Daniel/mcL [facility] Clarity, UA Clear [facility] Color, UA Yellow [facility] Glucose, UA Negative Negative - 1999(110) ++++ mg/dL [facility] Interpretation and review of laboratory results Abnormal [facility] Ketones, UA Negative Negative - 160(16) ++++ mg/dL [facility] Leukocytes, UA Moderate Negative - 500+++ Brando/mcL [facility] Nitrite, UA Negative Negative - Positive [facility] pH, UA 5 5 - 9 [facility] Protein, UA Negative Negative - 1999(20) ++++ mg/dL [facility] Spec Grav, UA 1.015 1 - 1.03 [facility] Urobilinogen, UA 0.2 0.2 - 12 mg/dL [facility] No Panel Informationon 07-26 STAPHYLOCOCCUS EPIDERMIDIS, HAEMOLYTICUS, LUGDUNENSIS, SAPROPHYTICUS (URINA 0 [facility] STAPHYLOCOCCUS EPIDERMIDIS, HAEMOLYTICUS, LUGDUNENSIS, SAPROPHYTICUS (URINA Not detected [facility] URINARY TRACT INFECTION (HTR X)on 07-26-2024 ACINETOBACTER BAUMANII 0 [facility] ACINETOBACTER BAUMANII Not detected [facility] MARIO ALBICANS, PARAPSILOSIS, TROPICALIS 0 [facility] MARIO ALBICANS, PARAPSILOSIS, TROPICALIS Not detected [facility] MARIO GLABRATA 0 [facility] MARIO GLABRATA Not detected [facility] MARIO KRUSEI 0 [facility]alt hcare MARIO KRUSEI Not detected [facility] CITROBACTER FREUNDII 0 [facility] CITROBACTER FREUNDII Not detected NO [facility] ENTEROBACTER AEROGENES, CLOACAE 0 [facility] re ENTEROBACTER AEROGENES, CLOACAE Not detected [facility] ENTEROCOCCUS FAECALIS, FAECIUM 0 [facility] ENTEROCOCCUS FAECALIS, FAECIUM Not detected [facility] ESCHERICHIA COLI 0 [facility] ESCHERICHIA COLI Not detected [facility] KLEBSIELLA PNEUMONIAE, OXYTOCA 0 [facility] are KLEBSIELLA PNEUMONIAE, OXYTOCA Not detected [facility] are MORGANELLA MORGANII 0 [facility] MORGANELLA MORGANII Not detected [facility] PROTEUS MIRABILIS, VULGARIS 0 [facility] PROTEUS MIRABILIS, VULGARIS Not detected [facility] PSEUDOMONAS AERUGINOSA 0 [facility] PSEUDOMONAS AERUGINOSA Not detected [facility] SERRATIA MARCESCENS 0 [facility] SERRATIA MARCESCENS Not detected [facility] STAPHYLOCOCCUS AUREUS 0 [facility] STAPHYLOCOCCUS AUREUS Not detected [facility] STREPTOCOCCUS AGALACTIAE (GROUP B STREP) 0 [facility] STREPTOCOCCUS AGALACTIAE (GROUP B STREP) Not detected [facility] STREPTOCOCCUS PYOGENES (GROUP A STREP) 0 [facility] STREPTOCOCCUS PYOGENES (GROUP A STREP) Not detected [facility] Urinalysis macro (dipstick) panel (U)on 07-25-2024 Bilirubin, UA Negative Negative - 4(70) +++ mg/dL [facility] Blood, UA Positive Negative - 50 Daniel/mcL [facility] Comment on above: trace-intact Clarity, UA Clear [facility] re Color, UA Yellow [facility] Glucose, UA Negative Negative - 2000(110) ++++ mg/dL [facility] Interpretation and review of laboratory results Abnormal [facility] Ketones, UA Negative Negative - 160(16) ++++ mg/dL [facility] Leukocytes, UA Positive Negative - 500+++ Brando/mcL [facility] Comment on above: small Nitrite, UA Negative Negative - Positive [facility] pH, UA 5.5 5 - 9 [facility] Protein, UA Negative Negative - 1999(20) ++++ mg/dL [facility] Spec Grav, UA 1.01 1 - 1.03 [facility] care Urobilinogen, UA 0.2 0.2 - 12 mg/dL [facility] BOX TESTon 07-20-2024 BOX TEST SENT OUT [facility] althcare BOX1 UNITY [facility] BOX2 07/20/2024 NOM [facility] UNITY BOX [facility] HCG ( test) Ql (U)O rdered By: Karly Mann on 06-23-2024 Interpretation and review of laboratory results Abnormal [facility] Healthcare Work Phone: Preg Test, Ur Positive [facility] Health care Work Phone: [facility] Work Phone: Urinalysis macro (dipstick) panel (U)on 06-23-2024 Bilirubin, UA Negative Negative - 4(70) +++ mg/dL [facility] Blood, UA Negative Negative - 50 Daniel/mcL [facility] Clarity, UA Clear [facility] re Color, UA Yellow [facility] Glucose, UA Negative Negative - 1999(110) ++++ mg/dL [facility] Interpretation and review of laboratory results Abnormal [facility] Ketones, UA Negative Negative - 160(16) ++++ mg/dL [facility] Leukocytes, UA Positive Negative - 500+++ Brando/mcL [facility] Comment on above: small Nitrite, UA Negative Negative - Positive [facility] pH, UA 6.0 5 - 9 [facility] Protein, UA Negative Negative - 1999(20) ++++ mg/dL [facility] Spec Grav, UA 1.025 1 - 1.03 [facility] care Urobilinogen, UA 0.2 0.2 - 12 mg/dL [facility] XR knee RT 2Von 05-15-2021 XR knee RT 2V [facility] [place] [address] XRay Report Signed Patient: Britton Escalera Nallely MR#: [id number] : 2000 Acct:[id number] Age/Sex: 21 / F ADM Date: 05/15/21 Loc: [facility] Room: Type: [facility] Attending Dr: Benjamín Smith MD Ordering Provider: [...] Abelardo Romo M.D.05/15/2021 1:54 PM Dictation Location: [place] [address] Transcribed By: [facility] 05/15/21 1354 Dictated By: Abelardo Romo DO 05/15/21 1349 Signed By: 05/15/21 1354 [facility] Vital Signs Date Time Vital Sign Value Performing Clinician Dieudonne riddle 10-23-2024 16:20-0500 Body weight 110.22 kg Gretchen CARCAMO Work Phone: [facility] 10-23-2024 16:20-0500 Diastolic blood pressure 70 mm[Hg] Gretchen CARCAMO Work Phone: [facility] 10-23-2024 16:20-0500 Systolic blood pressure 110 mm[Hg] Gretchen CARCAMO Work Phone: [facility] 09-21-2024 09:53-0500 Body weight 109.95 kg Domenico Jorge DO Work Phone: [facility] 09-21-2024 09:53-0500 Diastolic blood pressure 68 mm[Hg] Domenico Jorge DO Work Phone: [facility] 09-21-2024 09:53-0500 Systolic blood pressure 114 mm[Hg] Domenico Jorge DO Work Phone: [facility] 08-22-2024 14:59-0500 Body weight 108.14 kg Gretchen CARCAMO Work Phone: [facility] 08-22-2024 14:59-0500 Diastolic blood pressure 62 mm[Hg] Gretchen CARCAMO Work Phone: [facility] 08-22-2024 14:59-0500 Systolic blood pressure 100 mm[Hg] Gretchen CARCAMO Work Phone: [facility] 07-25-2024 09:40-0400 Body weight 105.23 kg Domenico Jorge DO Work Phone: [facility] 07-25-2024 09:40-0400 Diastolic blood pressure 74 mm[Hg] Domenico Jorge DO Work Phone: [facility] 07-25-2024 09:40-0400 Systolic blood pressure 110 mm[Hg] Domenico Jorge DO Work Phone: [facility] 06-23-2024 10:36-0400 Body weight 104.1 kg Noms Nurse [facility] 06-23-2024 10:36-0400 Diastolic blood pressure 76 mm[Hg] Noms Nurse [facility] 06-23-2024 10:36-0400 Systolic blood pressure 112 mm[Hg] Noms Nurse [facility] Encounters Encounter Date Encounter Type Care Provider Facility Start: 10-23-2024 End: 10-23-2024 flow sheet Gretchen CARCAMO Work Phone: [facility] Comment on above: 26 weeks gestation o f ; Third trimester ; size inconsistent with dates Start: 10-23-2024 End: 10-23-2024 Bamboo flowsheet Gretchen CARCAMO Work Phone: [facility] Start: 10-23-2024 End: 10-23-2024 Bamboo flowsheet Gretchen CARCAMO Work Phone: [facility] Start: 09-21-2024 End: 09-21-2024 Bamboo flowsheet Domenico Jorge DO Work Phone: [facility] Start: 09-21-2024 End: 09-21-2024 Bamboo flowsheet Domenico Jorge DO Work Phone: [facility] Start: 09-21-2024 End: 09-21-2024 ambulatory DOMENICO JORGE Not Available Start: 09-21-2024 End: 09-21-2024 flow sheet Domenico Jorge DO Work Phone: [facility] Comment on above: Second trimester pre gnancy; 21 weeks gestation of ; Diabetes mellitus screening Start: 08-22-2024 End: 08-22-2024 ambulatory GRETCHEN JAMESON Not Available Start: 08-22-2024 End: 08-22-2024 flow sheet Gretchen CARCAMO Work Phone: [facility] Comment on above: Second trimester pre gnancy; 17 weeks gestation of ; Screening, , for anatomic survey Start: 08-22-2024 End: 08-22-2024 Bamboo flowsheet Gretchen CARCAMO Work Phone: [facility] Start: 08-22-2024 End: 08-22-2024 Bamboo flowsheet Gretchen CARCAMO Work Phone: [facility] Start: 07-25-2024 End: 07-25-2024 Bamboo flowsheet Domenico Jorge DO Work Phone: [facility] Start: 07-25-2024 End: 07-26-2024 Bamboo flowsheet Domenico Jorge DO Work Phone: [facility] Start: 07-25-2024 End: 07-26-2024 External Result Encounter Domenico Jorge DO Work Phone: [facility] External Department Unsolicited Start: 07-25-2024 End: 07-25-2024 ambulatory DOMENICO JORGE Not Available Start: 07-25-2024 End: 07-25-2024 flow sheet Domenico Jorge DO Work Phone: [facility] Comment on above: Second trimester pre gnancy; 13 weeks gestation of ; Hematuria, unspecified type Start: 07-20-2024 End: 07-20-2024 [facility] Result Encounter Domenico Jorge DO Work Phone: [facility] External Department Unsolicited Start: 07-20-2024 End: 07-20-2024 [facility] Result Encounter Domenico Jorge DO Work Phone: [facility] External Department Unsolicited Start: 06-23-2024 End: 06-23-2024 Office outpatient visit 5 minutes [facility] Jorge Nurse [facility] Comment on above: GA: 8w4d Start: 06-23-2024 End: 06-23-2024 ambulatory DOMENICO JOGRE Not Available Procedures Date Procedure Procedure Detail Performing Clinician Start: 09-21-2024 Urnls dip stick/tabl et rgnt non-auto w/o micrscp Domenico Jorge DO Work Phone: Start: 08-22-2024 Urnls dip stick/tabl et rgnt non-auto w/o micrscp Gretchen CARCAMO Work Phone: Start: 07-25-2024 URINARY TRACT INFECT ION (HTRX) Domenico Jorge DO Work Phone: Start: 07-25-2024 Urnls dip stick/tabl et rgnt non-auto w/o micrscp Domenico Jorge DO Work Phone: Start: 07-20-2024 BOX TEST Domenico Fazi o DO Work Phone: Start: 06-23-2024 Urnls dip stick/tabl et rgnt non-auto w/o micrscp Domenico Jorge DO Work Phone: Plan of Treatment Date Care Activity Detail Author Start: 10-23-2024 End: 10-23-2024 Patient encounter procedure 10/23/2024 3:30 PM EST Routine [facility] [address] [place] [phone] Gretchen Jameson PA [address] [place] [address] [facility] Start: 10-23-2024 End: 10-23-2025 US for US OB follow up transabdominal approach Imaging Routine size inconsistent with dates Expected: 10/23/2024, Expires: 10/23/2025 [facility] Work Phone: Comment on above: Expected: 10/23/2024 , Expires: 10/23/2025 Start: 09-21-2024 End: 09-21-2025 CBC panel - Blood by Automated count CBC Lab Routine Second trimester Diabetes mellitus screening Expected: 09/21/2024 (Approximate), Expires: 09/21/2025 [facility] Work Phone: Comment on above: Expected: 09/21/2024 (Approximate), Expires: 09/21/2025 Start: 09-21-2024 End: 09-21-2025 Measurement of glucose 1 hour after glucose challenge for glucose tolerance test Glucose tolerance, 1 hour Lab Routine Second trimester Diabetes mellitus screening Expected: 09/21/2024 (Approximate), Expires: 09/21/2025 [facility] [place] Comment on above: Expected: 09/21/2024 (Approximate), Expires: 09/21/2025 Start: 09-21-2024 End: 09-21-2024 Patient encounter procedure 09/21/2024 9:20 AM EST Routine [facility] [address] [place] [id number] Domenico Patel DO [address] [place] [address] [facility] Start: 08-22-2024 End: 08-22-2024 Patient encounter procedure 08/22/2024 2:40 PM EST Routine [facility] [address] [place] [phone] Gretchen Jameson PA [address] [place], [place] [phone] [facility] Start: 08-22-2024 End: 10-22-2024 Alpha fetoprotein, maternal Alpha fetoprotein, maternal Lab Routine Second trimester 17 weeks gestation of Expected: 08/22/2024 (Approximate), Expires: 10/22/2024 [facility] Work Phone: Comment on above: Expected: 08/22/2024 (Approximate), Expires: 10/22/2024 Start: 08-22-2024 End: 08-22-2025 US for US OB ANATOMY SINGLE W US OB CERVICAL LENGTH Imaging Routine Screening, , for anatomic survey Expected: 08/22/2024 (Approximate), Expires: 08/22/2025 [facility] Comment on above: Expected: 08/22/2024 (Approximate), Expires: 08/22/2025 Start: 07-25-2024 End: 07-25-2024 Patient encounter procedure 07/25/2024 9:10 AM EDT Routine [facility] [address] [place] [phone] Domenico Patel DO [address] [place] [address] [facility] Start: 06-23-2024 End: 06-23-2025 ABO/Rh ABO/Rh Lab Routine Missed menses Expected: 06/23/2024 (Approximate), Expires: 06/23/2025 [facility] Comment on above: Expected: 06/23/2024 (Approximate), Expires: 06/23/2025 Start: 06-23-2024 End: 06-23-2025 Blood type and Indirect antibody screen panel - Blood Type and screen Lab Routine Missed menses Expected: 06/23/2024 (Approximate), Expires: 06/23/2025 [facility] Work Phone: Comment on above: Expected: 06/23/2024 (Approximate), Expires: 06/23/2025 Start: 06-23-2024 End: 06-23-2025 Drugs of abuse panel - Urine by Screen method Rapid drug screen, urine Lab Routine Encounter for supervision of normal first in first trimester , unspecified gestational age Expected: 06/23/2024 (Approximate), Expires: 06/23/2025 [facility] Comment on above: Expected: 06/23/2024 (Approximate), Expires: 06/23/2025 Start: 06-23-2024 End: 06-23-2025 US Pelvis transvaginal US OB transvaginal Imaging Routine Missed menses Expected: 06/23/2024 (Approximate), Expires: 06/23/2025 [facility] Comment on above: Expected: 06/23/2024 (Approximate), Expires: 06/23/2025 Start: 06-11-2024 Influenza vaccination Influenza Vacc ine (#1) [facility] Bacteria identified in Urine by Culture Urine culture Microbiology Routine Hematuria, unspecified type Ordered: 07/25/2024 [facility] Work Phone: Comment on above: Ordered: 07/25/2024 Bacteria identified in Urine by Culture Urine culture Microbiology Routine Missed menses Ordered: 06/23/2024 [facility] Comment on above: Ordered: 06/23/2024 CBC W Auto Different ial panel - Blood CBC and differential Lab Routine Missed menses Ordered: 06/23/2024 [facility] Comment on above: Ordered: 06/23/2024 Hemoglobin A1c/Hemoglobin.total in Blood Hemoglobin A1c Lab Routine Missed menses Ordered: 06/23/2024 [facility] Comment on above: Ordered: 06/23/2024 Hepatitis B virus surface Ag [Presence] in Serum or Plasma by Immunoassay Hepatitis B surface antigen Lab Routine Missed menses Ordered: 06/23/2024 [facility] Comment on above: Ordered: 06/23/2024 Hepatitis C virus Ab [Presence] in Serum or Plasma by Immunoassay Hepatitis C antibody Lab Routine Missed menses Ordered: 06/23/2024 [facility] Comment on above: Ordered: 06/23/2024 HIV-1/HIV-2 antigen/antibody combination immunoassay HIV-1 and HIV-2 antibodies Lab Routine Missed menses Ordered: 06/23/2024 [facility] Comment on above: Ordered: 06/23/2024 Reagin Ab [Presence] in Serum by RPR RPR Lab Routine Missed menses Ordered: 06/23/2024 [facility] Comment on above: Ordered: 06/23/2024 Rubella antibody, IgG Rubella an tibody, IgG Lab Routine Missed menses Ordered: 06/23/2024 [facility] Comment on above: Ordered: 06/23/2024 Payers Date Payer Category Payer [facility] BCBS Memb er Subscriber Plan / Payer (Effective 2023-Present) Name: Britton Escalera Relation to Subscriber: Child Name: ALISON ESCALERA Date of : 1975 Address: [address] [place] [address] Payer ID: Not on file Type: Not on file Address: [address] [id number] 2023 Unknown BCBS BCBS xxxxxx [id number] 2023-Present [phone] [id number] [place], [place] [id number] 2023 Unknown [id number] 2000 Unknown [id number] 2002 Unknown [id number] 2002 Unknown [id number] 2002 Unknown [id number] Social History Date Type Detail Facility Tobacco smoking stat [facility] Tobacco smoking consumption unknown [facility] Start: 05-08-2024 [facility] Start: 2000 Sex assigned at Not on file [facility] Start: 07-25-2024 Gender identity Not on file [facility] Start: 07-25-2024 Tobacco smoking stat [facility] Never smoked tobacco [facility] Start: 07-25-2024 Tobacco use and exposure Smokeless t obacco non-user [facility] Start: 07-25-2024 End: 10-23-2024 Alcoholic beverage intake Ex-drinker (finding) [facility] Start: 07-25-2024 History of Social function [facility] History of Present illness Narrative 10-23-2024 DONA Vieyra - 10/23/2024 3:30 PM EST Note Date & Type Note Facility 10-23-2024 History of Presen t illness Narrative Reason for Appointment: Patient ID: Britton Escalera is a 24 y.o. female who presents for Routine Visit Patient presents today for Return OB appointment. MEDICATIONS No current outpatient medications ALLERGIES No Known Allergies PROBLEMS Active Ambulatory Problems Diagnosis Date Noted Second trimester 09/21/2024 21 weeks gestation of 09/21/2024 Resolved Ambulatory Problems Diagnosis Date Noted No [...] weight on file to calculate BMI. BP: 110/70 Patient's last menstrual period was 04/14/2024. ASSESSMENT & PLAN ICD-10-CM 1. 26 weeks gestation of Z3A.26 2. Third trimester Z34.93 3. size inconsistent with dates O26.849 US OB follow up transabdominal approach Return OB: Patient presents today for a routine obstetrics appointment. Patient is currently 26w0d . Patient states she is doing well but has complaints of being tired due to current . Patient has verbalizes frequent movement. labor precautions was discussed/given and patient was instructed to perform kick counts three times a day. Orders Placed This Encounter Procedures US OB follow up transabdominal approach Follow Up: Patient is to return to office in 2 week for routine OB appointment. Documented by ODNA Vieyra on behalf of: DONA Vieyra documented in this encounter [facility] History of Present illness Narrative 09-21-2024 Emmie Minniebebeto, HOT PRESS OPERATOR 09/21/2024 9:20 AM EST Note Date & Type Note Facility 09-21-2024 History of Presen t illness Narrative Reason for Appointment: Patient ID: Britton Escalera is a 24 y.o. female who presents for No chief complaint on file. Patient presents today for Return OB appointment. MEDICATIONS No current outpatient medications ALLERGIES No Known Allergies PROBLEMS Active Ambulatory Problems Diagnosis Date Noted Second trimester 09/21/2024 21 weeks gestation of 09/21/2024 Resolved Ambulatory Problems Diagnosis Date Noted No [...] nursing note reviewed. Exam conducted with a treater helper present. Vitals: There is no height or weight on file to calculate BMI. BP: 114/68 Patient's last menstrual period was 04/14/2024. ASSESSMENT & PLAN ICD-10-CM 1. Second trimester Z34.92 POCT urinalysis dipstick manually resulted CBC Glucose tolerance, 1 hour CBC Glucose tolerance, 1 hour 2. 21 weeks gestation of Z3A.21 POCT urinalysis dipstick manually resulted 3. Diabetes mellitus screening Z13.1 CBC Glucose tolerance, 1 hour CBC Glucose tolerance, 1 hour Patient presents today for a routine obstetrics appointment. Patient is currently 21w3d with a Estimated Date of Delivery: 01/29/25. 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 Pt to reurn in 4 weeks for scheduled OB appt. Documented by Emmie Schmidt LPN on behalf of: Domenico Patel DO documented in this encounter [facility] History of Present illness Narrative 08-22-2024 DONA Vieyra - 08/22/2024 2:40 PM Lina Stephens LPN - 08/22/2024 2:40 PM EST Note Date & Type Note Facility 08-22-2024 History of Presen t illness Narrative Reason for Appointment: Patient ID: Britton Escalera is a 24 y.o. female who presents [...] and aware referral will be made to [facility] for genetic Counseling. Referral will be completed and patient will then be notified. Gloria Quiñonez LPN documented in this encounter [facility] History of Present illness Narrative 07-25-2024 Emmie Schmidt LPN - 07/25/2024 9:10 AM EDT Note Date & Type Note Facility 07-25-2024 History of Presen t illness Narrative Reason for Appointment: Patient ID: Britton Escalera is a 24 y.o. female who presents [...] nursing note reviewed. Exam conducted with a treater helper present. Vitals: There is no height or [...] or undercooked meat, and stay away from [facility]. Patient has been consulted regarding any further do's and don'ts of . Patient voiced understanding and all questions and concerns were answered. Orders Placed This Encounter Procedures POCT urinalysis dipstick manually resulted Follow Up: Patient is to return in 4 weeks for routine OB appointment. Documented by Emmie Schmidt LPN on behalf of: Domenico Patel DO documented in this encounter [facility] History of Present illness Narrative 06-23-2024 Lisha Chapin - 06/23/2024 10:30 AM EDT Note Date & Type Note Facility 06-23-2024 History of Presen t illness Narrative Reason for Appointment: Patient ID: Britton Escalera is a 24 y.o. female who presents for Initial Visit Patient presents today for a Nurse OB Intake appointment. Patient is 8w4d with a Estimated Date of Delivery: 01/29/25 OB History Para Term AB Living 1 SAB IAB Ectopic Multiple Live Births # Outcome Date GA Lbr Shay/2nd Weight Sex Type Anes PTL Lv 1 Current Current Medications: currently has no medications in their medication list. Medical History: Active Ambulatory Problems Diagnosis Date Noted No Active Ambulatory Problems Resolved Ambulatory Problems Diagnosis Date Noted No Resolved Ambulatory Problems Past Medical History: Diagnosis Date History of PCOS No family history on file. Social History Tobacco Use Smoking status: Not on file Smokeless tobacco: Not on file Substance Use Topics Alcohol use: Not on file Drug use: Not on file Past Surgical History: Procedure Laterality Date ADENOIDECTOMY No Known Allergies Vitals: There is no height or weight on file to calculate BMI. BP: 112/76 Patient's last menstrual period was 04/14/2024. Assessment/Plan Diagnoses and all orders for this visit: Missed menses - Type and screen; Future - ABO/Rh; Future - CBC and differential - Hemoglobin A1c - RPR - Rubella antibody, IgG - Hepatitis B surface antigen - Hepatitis C antibody - HIV-1 and HIV-2 antibodies - Urine culture - US OB transvaginal; Future - POCT , urine manually resulted - POCT urinalysis dipstick manually resulted Encounter for supervision of normal first in first trimester - Rapid drug screen, urine; Future , unspecified gestational age - Rapid drug screen, urine; Future Nurse Note: OB Intake: Patient presents today for first OB visit. Patients history has been reviewed in great detail including any potential risks. Patient signed consent forms and patient desires testing in both trimesters. Patient currently has no complaints and has been advised to drink 6-8 glasses of water a day, eat no raw or undercooked meat, and stay away from [facility]. Patient has also been advised to not change litter boxes and eat 6 small meals a day. Patient has been consulted regarding the do's and don'ts of . Patient was given labs and all questions and concerns were answered. Follow Up: Patient is to return in 4 weeks for routine OB appointment. Follow Up: Patient is to have labs drawn at directed and return to office for initial OB appointment with provider. Patient may call office as needed with any concerns or questions. Nurse Visit Completed by: Lisha Chapin documented in this encounter [facility] Evaluation note Note Date & Type Note Facility Evaluation note Diagnosis Second trimester state, incidental 13 weeks gestation of Hematuria, unspecified type documented in this encounter [facility] Evaluation note Note Date & Type Note Facility Evaluation note Diagnosis Second trimester state, incidental 17 weeks gestation of Screening, , for anatomic survey Encounter for anatomic survey documented in this encounter [facility] Evaluation note Note Date & Type Note Facility Evaluation note Diagnosis Missed menses Encounter for supervision of normal first in first trimester , unspecified gestational age documented in this encounter [facility] Evaluation note Note Date & Type Note Facility Evaluation note Diagnosis Second trimester state, incidental 21 weeks gestation of Diabetes mellitus screening Screening for diabetes mellitus documented in this encounter [facility] Evaluation note Note Date & Type Note Facility Evaluation note Diagnosis 26 weeks gestation of Third trimester state, incidental size inconsistent with dates documented in this encounter [facility] Summary Purpose Family History No Family History Records FoundNo Family History Records Found Advance Directives No Advanced Directives Records FoundNo Advanced Directives Records Found Additional Source Comments INFORMATION SOURCE (unrecogn ized section and content) DATE CREATED AUTHOR 11/03/2021 [facility] DATE CREATED AUTHOR AUTHOR'S ORGANIZ ATION 09/24/2024 [facility] Reason for Visit (unrecogniz ed section and content) Reason Comments Routine Visit Reason Comments Initial Visit FOR RECORDS PERTAINING TO PATIENTS WHO [...] BE BASED ON THE PRIMARY CLINICAL RECORDS. [facility]. provides no warranty or guarantee of the accuracy or completeness of information in this document.
[2024-10-26 08:26] LABS: Glucose 1 Hour 149 mg/dL (<130)
[2024-10-26 08:38] LABS: Basophils Absolute Auto 0.1 10^3/uL (0.0-0.1); Basophils Percent Auto 0.7 % (0.2-2.0); Eosinophils Percent Auto 0.3 % (0.9-7.0); Hematocrit 37.9 % (36.0-48.0); Hemoglobin 12.4 g/dL (12.0-16.0); Immature Granulocytes Abs Auto 0.09 10^3/uL (0.00-0.03); Lymphocytes Absolute Auto 2.7 10^3/uL (1.2-3.8); Lymphocytes Percent Auto 30.1 % (20.5-60.0); Mean Corpuscular HGB Conc 32.7 g/dL (29.9-35.2); Mean Corpuscular Hemoglobin 29.5 pg (26.7-34.0); Mean Corpuscular Volume 90.2 fL (81.0-99.0); Mean Platelet Volume 10.3 fL (9.5-13.5); Monocytes Absolute Auto 0.6 10^3/uL (0.3-0.8); Monocytes Percent Auto 6.9 % (1.7-12.0); Neutrophils Absolute Auto 5.4 10^3/uL (1.4-6.5); Platelet Count 284 10^3/uL (150-450); Red Cell Distribution Width 12.7 % (11.0-15.0); White Blood Count 8.9 10^3/uL (4.0-11.0)
== END 2024-10-26 07:00 | disposition home or self-care (01) ==
PROVIDERS: Visit Provider Obstetrics & Gynecology
DX: Z13.1 Encounter for screening for diabetes mellitus (principal)
CPT/HCPCS: 36415; 82950; 85025

== ENCOUNTER 2024-11-06 06:44 | Outpatient (OUT) | payer BC, SELFPAY ==
--- OUTSIDE RECORDS SUMMARY | 2024-11-06 06:47 | XMS_ITS | CCD ---
Author Organization [facility] Care Team Providers Care Octave Board Racker Name Role Phone Unavailable Primary Care Provider Unavailbreezy e DOMENICO PATEL Attending Unavailable GRETCHEN JAMESON Attending Unavailable DOMENICO PATEL Attending Unavailable GRETCHEN JAMESON Attending Unavailable Problems [...] 10-23-2024 Episodic Other and delivery including normal (16 sources) Second trimester ; Translations: [Encounter for [...] of ] 08-22-2024 Episodic Residual codes; unclassified (8 sources) Gestation period, 21 weeks; Translations: [21 weeks gestation of ] Onset: 09-21-2024 09-21-2024 Episodic Residual codes; unclassified (2 sources) Gestation period, 26 weeks; Translations: [26 weeks gestation of ] 10-23-2024 Episodic Results Test Name Value Interpretation Reference Range Facil ity GLUCOSE 1 HOURon 10-26-2024 Glucose [Mass/Vol] 149 mg/dL High NINF - 13 0 mg/dL [facility] Interpretation and review of laboratory results Abnormal [facility] Urinalysis macro (dipstick) panel (U)on 09-21-2024 Bilirubin, UA Negative Negative - 4(70) +++ mg/dL [facility] Blood, UA Negative Negative - 50 Daniel/mcL [facility] Healthcare Clarity, UA Clear [facility] Color, UA Yellow [facility] Glucose, UA Negative Negative - 1999(110) ++++ mg/dL [facility] Interpretation and review of laboratory results Abnormal [facility] Ketones, UA Negative Negative - 160(16) ++++ mg/dL [facility] Leukocytes, UA 1+ Negative - 500+++ Brando/mcL [facility] Healthcare Nitrite, UA Negative Negative - Positive [facility] pH, UA 7 5 - 9 [facility] Protein, UA Trace Negative - 1999(20) ++++ mg/dL [facility] Spec Grav, UA 1.025 1 - 1.03 [facility] Urobilinogen, UA 0.2 0.2 - 12 mg/dL [facility] Urinalysis macro (dipstick) panel (U)on 08-22-2024 Bilirubin, UA Negative Negative - 4(70) +++ mg/dL [facility] Blood, UA Negative Negative - 50 Daniel/mcL [facility] Healthcare Clarity, UA Clear [facility] Color, UA Yellow [facility] Glucose, UA Negative Negative - 1999(110) ++++ mg/dL [facility] Interpretation and review of laboratory results Abnormal [facility] Ketones, UA Negative Negative - 160(16) ++++ mg/dL [facility] Leukocytes, UA Moderate Negative - 500+++ Brando/mcL [facility] Healthcare Nitrite, UA Negative Negative - Positive [facility] pH, UA 5 5 - 9 [facility] Protein, UA Negative Negative - 1999(20) ++++ mg/dL [facility] Spec Grav, UA 1.015 1 - 1.03 [facility] Urobilinogen, UA 0.2 0.2 - 12 mg/dL [facility] No Panel Informationon 07-26 STAPHYLOCOCCUS EPIDERMIDIS, HAEMOLYTICUS, LUGDUNENSIS, SAPROPHYTICUS (URINA 0 [facility] STAPHYLOCOCCUS EPIDERMIDIS, HAEMOLYTICUS, LUGDUNENSIS, SAPROPHYTICUS (URINA Not detected [facility] URINARY TRACT INFECTION (HTR X)on 07-26-2024 ACINETOBACTER BAUMANII 0 [facility] ACINETOBACTER BAUMANII Not detected [facility] MARIO ALBICANS, PARAPSILOSIS, TROPICALIS 0 [facility] MARIO ALBICANS, PARAPSILOSIS, TROPICALIS Not detected [facility] MARIO GLABRATA 0 [facility] MARIO GLABRATA Not detected [facility] MARIO KRUSEI 0 [facility] MARIO KRUSEI Not detected [facility] CITROBACTER FREUNDII 0 [facility] CITROBACTER FREUNDII Not detected NO [facility] ENTEROBACTER AEROGENES, CLOACAE 0 [facility] re ENTEROBACTER AEROGENES, CLOACAE Not detected [facility] re ENTEROCOCCUS FAECALIS, FAECIUM 0 [facility] e ENTEROCOCCUS FAECALIS, FAECIUM Not detected [facility] e ESCHERICHIA COLI 0 [facility] ESCHERICHIA COLI Not detected [facility] KLEBSIELLA PNEUMONIAE, OXYTOCA 0 [facility] are KLEBSIELLA PNEUMONIAE, OXYTOCA Not detected [facility] are MORGANELLA MORGANII 0 [facility] MORGANELLA MORGANII Not detected [facility] PROTEUS MIRABILIS, VULGARIS 0 [facility] PROTEUS MIRABILIS, VULGARIS Not detected [facility] PSEUDOMONAS AERUGINOSA 0 [facility] PSEUDOMONAS AERUGINOSA Not detected [facility] SERRATIA MARCESCENS 0 [facility] SERRATIA MARCESCENS Not detected [facility] STAPHYLOCOCCUS AUREUS 0 [facility] STAPHYLOCOCCUS AUREUS Not detected [facility] STREPTOCOCCUS AGALACTIAE (GROUP B STREP) 0 [facility] STREPTOCOCCUS AGALACTIAE (GROUP B STREP) Not detected [facility] STREPTOCOCCUS PYOGENES (GROUP A STREP) 0 [facility] STREPTOCOCCUS PYOGENES (GROUP A STREP) Not detected [facility] Urinalysis macro (dipstick) panel (U)on 07-25-2024 Bilirubin, UA Negative Negative - 4(70) +++ mg/dL [facility] Blood, UA Positive Negative - 50 Daniel/mcL [facility] Comment on above: trace-intact Clarity, UA Clear [facility] re Color, UA Yellow [facility] e Glucose, UA Negative Negative - 2000(110) ++++ mg/dL [facility] Interpretation and review of laboratory results Abnormal [facility] Ketones, UA Negative Negative - 160(16) ++++ mg/dL [facility] Leukocytes, UA Positive Negative - 500+++ Brando/mcL [facility] Comment on above: small Nitrite, UA Negative Negative - Positive [facility] pH, UA 5.5 5 - 9 [facility] Protein, UA Negative Negative - 1999(20) ++++ mg/dL [facility] Spec Grav, UA 1.01 1 - 1.03 [facility] Urobilinogen, UA 0.2 0.2 - 12 mg/dL [facility] BOX TESTon 07-20-2024 BOX TEST SENT OUT [facility] althcare BOX1 [facility] BOX2 07/20/2024 [facility] e UNITY BOX [facility] HCG ( test) Ql (U)O rdered By: Karly Mann on 06-23-2024 Interpretation and review of laboratory results Abnormal [facility] Work Phone: Preg Test, Ur Positive [facility] Health care Work Phone: [facility] Work Phone: Urinalysis macro (dipstick) panel (U)on 06-23-2024 Bilirubin, UA Negative Negative - 4(70) +++ mg/dL [facility] Blood, UA Negative Negative - 50 Daniel/mcL [facility] Clarity, UA Clear [facility] re Color, UA Yellow [facility] Glucose, UA Negative Negative - 1999(110) ++++ mg/dL [facility] Interpretation and review of laboratory results Abnormal [facility] Ketones, UA Negative Negative - 160(16) ++++ mg/dL [facility] Leukocytes, UA Positive Negative - 500+++ Brando/mcL [facility] Comment on above: small Nitrite, UA Negative Negative - Positive [facility] pH, UA 6.0 5 - 9 [facility] Protein, UA Negative Negative - 1999(20) ++++ mg/dL [facility] Spec Grav, UA 1.025 1 - 1.03 [facility] Urobilinogen, UA 0.2 0.2 - 12 mg/dL [facility] XR knee RT 2Von 05-15-2021 XR knee RT 2V [facility] [place] [address] [place] [address] XRay Report Signed Patient: Britton Escalera MR#: [id number] : 2000 Acct:[id number] Age/Sex: 21 / F ADM Date: 05/15/21 [place] [facility] [place]: Type: [facility] Attending Dr: Benjamín Smith MD Ordering Provider: Benjamín Smtih MD Date of Service: 05/15/21 XR/XR knee RT 2V: M25.561 Copies to: Benjamín Smith MD 2 views RIGHT knee plain film COMPARISON:None HISTORY:RIGHT knee pain for one week. No injury No fracture, dislocation or focal soft tissue abnormality seen.. No suprapatellar effusion. XR/XR knee RT 2V IMPRESSION:Unremark able exam Impression dictated by: Abelardo Romo M.D.05/15/2021 1:54 PM Dictation Location: [place] [address] Transcribed By: [facility] 05/15/21 1354 Dictated By: Abelardo Romo DO 05/15/21 1349 Signed By: 05/15/21 1354 Normal [facility] Vital Signs Date Time Vital Sign Value Performing Clinician Dieudonne riddle 10-23-2024 16:20-0500 Body weight 110.22 kg Gretchen CARCAMO Work Phone: [facility] 10-23-2024 16:20-0500 Diastolic blood pressure 70 mm[Hg] Gretchen CARCAMO Work Phone: [facility] 10-23-2024 16:20-0500 Systolic blood pressure 110 mm[Hg] Gretchen CARCAMO Work Phone: [facility] 09-21-2024 09:53-0500 Body weight 109.95 kg Domenico Jorge DO Work Phone: [facility] 09-21-2024 09:53-0500 Diastolic blood pressure 68 mm[Hg] Domenico Jorge DO Work Phone: [facility] 09-21-2024 09:53-0500 Systolic blood pressure 114 mm[Hg] Domenico Jorge DO Work Phone: [facility] 08-22-2024 14:59-0500 Body weight 108.14 kg Gretchen CARCAMO Work Phone: [facility] 08-22-2024 14:59-0500 Diastolic blood pressure 62 mm[Hg] Gretchen CARCAMO Work Phone: [facility] 08-22-2024 14:59-0500 Systolic blood pressure 100 mm[Hg] Gretchen CARCAMO Work Phone: [facility] 07-25-2024 09:40-0400 Body weight 105.23 kg Domenico Jorge DO Work Phone: [facility] 07-25-2024 09:40-0400 Diastolic blood pressure 74 mm[Hg] Domenico Jorge DO Work Phone: [facility] 07-25-2024 09:40-0400 Systolic blood pressure 110 mm[Hg] Domenico Jorge DO Work Phone: [facility] 06-23-2024 10:36-0400 Body weight 104.1 kg Noms Nurse [facility] 06-23-2024 10:36-0400 Diastolic blood pressure 76 mm[Hg] [facility]oms Nurse [facility] 06-23-2024 10:36-0400 Systolic blood pressure 112 mm[Hg] Noms Nurse [facility] Healthcare Encounters Encounter Date Encounter Type Care Provider Facility Start: 10-26-2024 End: 10-26-2024 Clinisync Result Encounter Domenico Jorge DO Work Phone: [facility] External Department Unsolicited Start: 10-26-2024 End: 10-26-2024 Clinisync Result Encounter Domenico Jorge DO Work Phone: [facility] External Department Unsolicited Start: 10-23-2024 End: 10-23-2024 ambulatory GRETCHEN JAMESON Not Available Start: 10-23-2024 End: 10-23-2024 flow sheet Gretchen CARCAMO Work Phone: [facility] Comment on above: 26 weeks gestation o f ; Third trimester ; size inconsistent with dates Start: 10-23-2024 End: 10-23-2024 Bamboo flowsheet Gretchen CARCAMO Work Phone: [facility] Start: 10-23-2024 End: 10-23-2024 Bamboo flowsheet Gretchen CARCAMO Work Phone: [facility] Start: 09-21-2024 End: 09-21-2024 Bamboo flowsheet Domenico Jorge DO Work Phone: [facility] Start: 09-21-2024 End: 09-21-2024 Bamboo flowsheet Domenico Jorge DO Work Phone: [facility] Start: 09-21-2024 End: 09-21-2024 ambulatory DOMENICO JORGE Not Available Start: 09-21-2024 End: 09-21-2024 flow sheet Domenico Jorge DO Work Phone: [facility] Comment on above: Second trimester pre gnancy; 21 weeks gestation of ; Diabetes mellitus screening Start: 08-22-2024 End: 08-22-2024 ambulatory GRETCHEN JAMESON Not Available Start: 08-22-2024 End: 08-22-2024 flow sheet Gretchen CARCAMO Work Phone: [facility] Comment on above: Second trimester pre gnancy; 17 weeks gestation of ; Screening, , for anatomic survey Start: 08-22-2024 End: 08-22-2024 Bamboo flowsheet Gretchen CARCAMO Work Phone: [facility] Start: 08-22-2024 End: 08-22-2024 Bamboo flowsheet Gretchen CARCAMO Work Phone: [facility] Start: 07-25-2024 End: 07-25-2024 Bamboo [...] 8w4d Start: 06-23-2024 End: 06-23-2024 ambulatory DOMENICO JORGE Not Available Procedures Date Procedure Procedure Detail Performing Clinician Start: 10-26-2024 GLUCOSE 1 HOUR Domenico Fa zio DO Work Phone: Start: 09-21-2024 Urnls dip stick/tabl et rgnt non-auto w/o micrscp Domenico Jorge DO Work Phone: Start: 08-22-2024 Urnls dip stick/tabl et rgnt non-auto w/o micrscp Gretchen Jameson PA Work Phone: Start: 07-25-2024 URINARY TRACT INFECT ION (HTRX) Domenico Jorge DO Work Phone: Start: 07-25-2024 Urnls dip stick/tabl et rgnt non-auto w/o micrscp Domenico Jorge DO Work Phone: Start: 07-20-2024 BOX TEST Domenico Fazi o DO Work Phone: Start: 06-23-2024 Urnls dip stick/tabl et rgnt non-auto w/o micrscp Domenico Jorge DO Work Phone: Plan of Treatment Date Care Activity Detail Author Start: 11-08-2024 End: 11-08-2024 Patient encounter procedure 11/08/2024 2:30 PM EST Routine [facility] [address] [place] [address] Domenico Patel, DO [address] [place] [address] [facility] Start: 11-08-2024 End: 11-08-2024 Professional / ancillary services management 11/08/2024 2:00 PM EST Ancillary Procedure [facility] [address] [place] [address] [facility] Start: 10-23-2024 End: 10-23-2024 Patient encounter procedure 10/23/2024 3:30 PM EST Routine [facility] [address] [place] [address] Gretchen Jameson, DONA [address] [place] [address] [facility] Start: 10-23-2024 End: 10-23-2025 [...] mellitus screening Expected: 09/21/2024 (Approximate), Expires: 09/21/2025 [facility] Comment on above: Expected: 09/21/2024 (Approximate), Expires: 09/21/2025 Start: 09-21-2024 End: 09-21-2024 Patient encounter procedure 09/21/2024 9:20 AM EST Routine [facility] [address] [place] [phone] Domenico Patel DO [address] [facility] [address] [place] [address] [facility] Start: 08-22-2024 End: 08-22-2024 Patient encounter procedure 08/22/2024 2:40 PM EST Routine [facility] [address] [facility] [place] [phone] Gretchen Jameson PA [address] [place] [address] [facility] Start: 08-22-2024 End: 10-22-2024 Alpha fetoprotein, maternal Alpha fetoprotein, maternal Lab Routine Second trimester 17 weeks gestation of Expected: 08/22/2024 (Approximate), Expires: 10/22/2024 [facility] Work Phone: Comment on above: [...] AM EDT Routine [facility] [address] [facility] [place] [phone] Domenico Patel DO [address] [facility] [address] [place] [address] [facility] Start: 06-23-2024 End: 06-23-2025 ABO/Rh ABO/Rh Lab Routine Missed menses Expected: 06/23/2024 (Approximate), Expires: 06/23/2025 [facility] Comment on above: Expected: 06/23/2024 (Approximate), Expires: 06/23/2025 Start: 06-23-2024 End: 06-23-2025 Blood type and Indirect antibody screen panel - Blood Type and screen Lab Routine Missed menses Expected: 06/23/2024 (Approximate), Expires: 06/23/2025 [facility] Work Phone: Comment on above: Expected: 06/23/2024 (Approximate), Expires: 06/23/2025 Start: 06-23-2024 End: 06-23-2025 Drugs of abuse panel - Urine by Screen method Rapid drug screen, urine Lab Routine Encounter for supervision of normal first in first trimester , unspecified gestational age Expected: 06/23/2024 (Approximate), Expires: 06/23/2025 [facility] Comment on above: Expected: 06/23/2024 (Approximate), Expires: 06/23/2025 Start: 06-23-2024 End: 06-23-2025 US Pelvis transvaginal US OB transvaginal Imaging Routine Missed menses Expected: 06/23/2024 (Approximate), Expires: 06/23/2025 [facility] Comment on above: Expected: 06/23/2024 (Approximate), Expires: 06/23/2025 Start: 06-11-2024 Influenza vaccination Influenza Vacc ine (#1) [facility] Bacteria identified in Urine by Culture Urine culture Microbiology Routine Hematuria, unspecified type Ordered: 07/25/2024 [facility] Work Phone: Comment on above: Ordered: 07/25/2024 Bacteria identified in Urine by Culture Urine culture Microbiology Routine Missed menses Ordered: 06/23/2024 [facility] Comment on above: Ordered: 06/23/2024 CBC W Auto Different ial panel - Blood CBC and differential Lab Routine Missed menses Ordered: 06/23/2024 [facility] Comment on above: Ordered: 06/23/2024 Hemoglobin A1c/Hemoglobin.total in Blood Hemoglobin A1c Lab Routine Missed menses Ordered: 06/23/2024 [facility] Comment on above: Ordered: 06/23/2024 Hepatitis B virus surface Ag [Presence] in Serum or Plasma by Immunoassay Hepatitis B surface antigen Lab Routine Missed menses Ordered: 06/23/2024 [facility] Comment on above: Ordered: 06/23/2024 Hepatitis C virus Ab [Presence] in Serum or Plasma by Immunoassay Hepatitis C antibody Lab Routine Missed menses Ordered: 06/23/2024 [facility] Comment on above: Ordered: 06/23/2024 HIV-1/HIV-2 antigen/antibody combination immunoassay HIV-1 and HIV-2 antibodies Lab Routine Missed menses Ordered: 06/23/2024 [facility] Comment on above: Ordered: 06/23/2024 Reagin Ab [Presence] in Serum by RPR RPR Lab Routine Missed menses Ordered: 06/23/2024 [facility] Comment on above: Ordered: 06/23/2024 Rubella antibody, IgG Rubella an tibody, IgG Lab Routine Missed menses Ordered: 06/23/2024 [facility] Comment on above: Ordered: 06/23/2024 Payers Date Payer Category Payer [facility] BCBS Memb er Subscriber Plan / Payer (Effective 2023-Present) Name: Britton Escalera Relation to Subscriber: Child Name: ALISON ESCALERA Date of : 1975 Address: [address] [place] [address] Payer ID: Not on file Type: Not on file Address: [address] [place] [id number] 2023 Unknown BCBS BCBS [id number] [id number] 2023-Present [phone] [address] [place] [id number] 2023 Unknown [id number] 2002 Unknown [id number] [id number] 2002 Unknown [id number] [id number] 2002 Unknown [id number] [id number] 2002 Unknown [id number] [id number] 2002 Unknown [id number] [id number] Social History Date Type Detail Facility Tobacco smoking stat [facility] Tobacco smoking consumption unknown [facility] Start: 05-08-2024 [facility] Start: 2000 Sex assigned at Not on file [facility] Start: 07-25-2024 Gender identity Not on file [facility] Start: 07-25-2024 Tobacco smoking stat [facility] Never smoked tobacco [facility] Start: 07-25-2024 Tobacco use and exposure Smokeless t obacco non-user [facility] Start: 07-25-2024 End: 10-23-2024 Alcoholic beverage intake Ex-drinker (finding) [facility] Start: 07-25-2024 History of Social function [facility] History of Present illness Narrative 10-23-2024 [...] Z34.93 3. size inconsistent with dates O26.849 OB follow up transabdominal approach Return OB: [...] week for routine OB appointment. Documented by DONA Vieyra on behalf of: DONA Vieyra documented in this encounter [facility] History of Present illness Narrative 09-21-2024 Emmie Schmidt, [employer] - 09/21/2024 9:20 AM EST Note Date & [...] nursing note reviewed. Exam conducted with a supervisor vat house present. Vitals: There is no height or [...] and aware referral will be made to [facility] for genetic Counseling. Referral [...] nursing note reviewed. Exam conducted with a supervisor vat house present. Vitals: There is no height or [...] or undercooked meat, and stay away from [facility]. Patient has been consulted regarding any [...] History of Present illness Narrative 06-23-2024 Lisha Tavares - 06/23/2024 10:30 AM EDT Note Date [...] or undercooked meat, and stay away from [facility]. Patient has also been advised to [...] by: Lisha Chapin documented in this encounter [facility] Evaluation note Note Date & Type Note Facility Evaluation note Diagnosis Second trimester state, incidental 13 weeks gestation of Hematuria, unspecified type documented in this encounter [facility] Evaluation note Note Date & Type Note Facility Evaluation note Diagnosis Second trimester state, incidental 17 weeks gestation of Screening, , for anatomic survey Encounter for anatomic survey documented in this encounter [facility] Evaluation note Note Date & Type Note Facility Evaluation note Diagnosis Missed menses Encounter for supervision of normal first in first trimester , unspecified gestational age documented in this encounter [facility] Evaluation note Note Date & Type Note Facility Evaluation note Diagnosis Second trimester state, incidental 21 weeks gestation of Diabetes mellitus screening Screening for diabetes mellitus documented in this encounter [facility] Evaluation note Note Date & Type Note Facility Evaluation note Diagnosis 26 weeks gestation of Third trimester state, incidental size inconsistent with dates documented in this encounter [facility] Summary Purpose Family History No Family History Records FoundNo Family History Records Found Advance Directives No Advanced Directives Records FoundNo Advanced Directives Records Found Additional Source Comments INFORMATION SOURCE (unrecogn ized section and content) DATE CREATED AUTHOR 11/03/2021 [facility] DATE CREATED AUTHOR AUTHOR'S ORGANIZ ATION 10/27/2024 [facility] EPIC Reason for Visit (unrecogniz [...] BE BASED ON THE PRIMARY CLINICAL RECORDS. [facility] [employer] [facility]. provides no warranty or guarantee of the accuracy or completeness of information in this document.
[2024-11-06 07:05] LABS: Glucose Fasting 89 mg/dL (<95)
[2024-11-06 09:20] LABS: Glucose 2 Hour 146 mg/dL (<155)
[2024-11-06 09:20] LABS: Glucose 1 Hour 148 mg/dL (<180)
[2024-11-06 10:14] LABS: Glucose 3 Hour 94 mg/dL (<140)
== END 2024-11-06 06:45 | disposition home or self-care (01) ==
LOC: LAB 06:44
PROVIDERS: Visit Provider Obstetrics & Gynecology
DX: R73.09 Other abnormal glucose (principal)
CPT/HCPCS: 36415; 82951; 82952

== ENCOUNTER 2025-01-04 14:51 | Outpatient (REF) | payer BC, SELFPAY | END 2025-01-04 14:52 | disposition home or self-care (01) | LOC: LAB 14:51 | PROVIDERS: Visit Provider Obstetrics & Gynecology | DX: Z34.93 Encounter for supervision of normal pregnancy, unspecified, third trimester (principal) | CPT/HCPCS: 36415; 87081 ==

== ENCOUNTER 2025-01-22 05:01 | Inpatient (IN) | payer BC, SELFPAY ==
[2025-01-22] VITALS (45 sets, daily range): BP systolic 104–151; BP diastolic 56–97; PULSE 50–130; TEMP 36.7–36.9
--- OUTSIDE RECORDS SUMMARY | 2025-01-22 05:03 | XMS_ITS | CCD ---
Author Organization [facility] Care Team Providers Care Music Therapy Teacher Name Role Phone Unavailable Primary Care Provider Unavailabl e JORGE, DOMENICO Attending Unavailable GISELL, GRETCHEN Attending Unavailable JORGE, DOMENICO Attending Unavailable GISELL, GRETCHEN Attending Unavailable GISELL, GRETCHEN Referring Unavailable JORGE, DOMENICO Attending Unavailable GISELL, GRETCHEN Referring Unavailable GISELL, GRETCHEN Attending Unavailable JORGE, DOMENICO Attending Unavailable JORGE, DOMENCIO Referring Unavailable GISELL, GRETCHEN Attending Unavailable JORGE, DOMENICO Attending Unavailable JORGE, DOMENICO Referring Unavailable GISELL, GRETCHEN Attending Unavailable JORGE, DOMENICO Attending Unavailable Medications Current Medications Medication Drug Class(es) Dates Sig (Normalized) Sig (Original) azithromycin 250 mg oral tablet (5 sources) Macrolide Antimicrobial Start: 01-11-2025 azithromycin (Zithromax Z-Ananda) 250 MG tablet Indications: Upper respiratory tract infection, unspecified type As directed 6 tablet 01/11/2025 Active magnesium oxide 400 mg oral tablet (12 sources) Start: 12-21-2024 End: 07-19-2025 take 1 tablet by mouth once daily magnesium oxide (Mag-Ox) 400 (240 Mg) MG tablet Take 400 mg by mouth Daily 12/21/2024 Active Completed/Discontinued Medications Medication Drug Class(es) Dates Sig (Normalized) Sig (Original) Progesterone 200 MG suppository (12 sources) Start: 12-21-2024 End: 01-04-2025 Progesterone 200 MG suppository Indications: History of miscarriage Insert 200 mg into the vagina at bedtime Insert suppository vaginally every night at bedtime until 12 weeks gestation 30 suppository 12/21/2024 01/04/2025 Discontinued (Therapy completed) Start: 12-21-2024 End: 01-20-2025 Progesterone 200 MG supposit ory Indications: History of miscarriage Insert 200 mg into the vagina at bedtime Insert suppository vaginally every night at bedtime until 12 weeks gestation 30 suppository 12/21/2024 01/20/2025 Active Start: 11-22-2024 End: 12-21-2024 Progesterone 200 MG supposit ory Indications: History of miscarriage Insert 200 mg into the vagina at bedtime Insert suppository vaginally every night at bedtime until 12 weeks gestation 30 suppository 11/22/2024 12/21/2024 Discontinued (Reorder) Start: 11-22-2024 End: 12-22-2024 Progesterone 200 MG supposit ory Indications: History of miscarriage Insert 200 mg into the vagina at bedtime Insert suppository vaginally every night at bedtime until 12 weeks gestation 30 suppository 11/22/2024 12/22/2024 Active Problems Active Problems Problem Classification Problem Date Documented Date Episodic/Chronic Genitourinary symptoms and ill-defined conditions (2 sources) Blood in urine; Translations: [Hematuria, unspecified] 07-25-2024 Episodic Headache; including migraine (2 sources) Headache; Translations: [Nonintractable headache, unspecified chronicity pattern, unspecified headache type] 12-21-2024 Episodic Menstrual disorders (1 source) Missed period; Translations: [Irregular menstruation, unspecified] 06-23-2024 Chronic Other complications of (2 sources) size does not accord with dates; Translations: [Uterine size-date discrepancy, unspecified trimester] 10-23-2024 Episodic Other complications of (2 sources) Short cervical length in ; Translations: [Cervical shortening, unspecified trimester] 12-06-2024 Episodic Other complications of (2 sources) Excessive growth affecting management of mother; Translations: [Maternal care for excessive growth, unspecified trimester, not applicable or unspecified] 01-04-2025 Episodic Other and delivery including normal (20 sources) Second trimester ; Translations: [Encounter for supervision of normal , unspecified, second trimester] Onset: 09-21-2024 07-25-2024 Episodic Other screening for suspected conditions (not mental disorders or infectious disease) (4 sources) Patient encounter status; Translations: [Encounter for other specified screening] 08-22-2024 Episodic Other upper respiratory infections (2 sources) Upper respiratory infection; Translations: [Acute upper respiratory infection, unspecified] 01-11-2025 Episodic Residual codes; unclassified (2 sources) Gestation period, 13 weeks; Translations: [13 weeks gestation of ] 07-25-2024 Episodic Residual codes; unclassified (2 sources) Gestation period, 17 weeks; Translations: [17 weeks gestation of ] 08-22-2024 Episodic Residual codes; unclassified (2 sources) Gestation period, 26 weeks; Translations: [26 weeks gestation of ] 10-23-2024 Episodic Residual codes; unclassified (2 sources) Gestation period, 28 weeks; Translations: [28 weeks gestation of ] 11-08-2024 Episodic Residual codes; unclassified (2 sources) Gestation period, 30 weeks; Translations: [30 weeks gestation of ] 11-22-2024 Episodic Residual codes; unclassified (4 sources) H/O: miscarriage; Translations: [Personal history of other complications of , childbirth and the puerperium] 11-22-2024 Episodic Residual codes; unclassified (2 sources) Gestation period, 32 weeks; Translations: [32 weeks gestation of ] 12-06-2024 Episodic Residual codes; unclassified (2 sources) Gestation period, 34 weeks; Translations: [34 weeks gestation of ] 12-21-2024 Episodic Residual codes; unclassified (2 sources) Gestation period, 36 weeks; Translations: [36 weeks gestation of ] 01-04-2025 Episodic Residual codes; unclassified (2 sources) Gestation period, 37 weeks; Translations: [37 weeks gestation of ] 01-11-2025 Episodic Residual codes; unclassified (2 sources) Gestation period, 38 weeks; Translations: [38 weeks gestation of ] 2025 Episodic Past or Other Problems Problem Classification Problem Date Documented Da te Episodic/Chronic Residual codes; unclassified (20 sources) Gestation period, 21 weeks; Translations: [21 weeks gestation of ] Onset: 09-21-2024 09-21-2024 Episodic Results Test Name Value Interpretation Reference Range Facility Urinalysis macro (dipstick) panel (U)on 2025 Bilirubin, UA Negative Negative - 4(70) +++ mg/dL [facility] Blood, UA Negative Negative - 50 Daniel/mcL [facility] Clarity, UA Clear [facility] Color, UA Yellow [facility] Glucose, UA Negative Negative - 1999(110) ++++ mg/dL [facility] Interpretation and review of laboratory results Abnormal [facility] Ketones, UA Negative Negative - 160(16) ++++ mg/dL [facility] Leukocytes, UA Positive Negative - 500+++ Brando/mcL [facility] Comment on above: Moderate Nitrite, UA Negative Negative - Positive [facility] pH, UA 6.5 5 - 9 [facility] Protein, UA Positive Negative - 1999(20) ++++ mg/dL [facility] Comment on above: 30mg/dL Spec Grav, UA 1.025 1 - 1.03 [facility] Urobilinogen, UA 1.0 0.2 - 12 mg/dL [facility] US OB FOLLOW UP TRANSABDOMIN AL APPROACHon 01-11-2025 US OB FOLLOW UP TRANSABDOMINAL APPROACH EXAM: US OB FOLLOW UP TRANSABDOMINAL APPROACH HISTORY: Large for gestational age. COMPARISON: OB ultrasound 12/08/2024. TECHNIQUE: Two-dimensional transabdominal grayscale ultrasound imaging of the pelvis was performed. FINDINGS: Gestation: Single Presentation: Cephalic Cardiac Activity: 127 beats per minute Placental Location: Posterior with no sonographic abnormalities identified. Cervical canal: Not well visualized Amniotic Fluid Index: 21.3 cm MEASUREMENTS: BPD: 9.3 cm EGA: 38 weeks 0 days HC: 32.8 cm EGA: 37 weeks 2 days AC: 34.6 cm EGA: 38 weeks 4 days FL: 7.5 cm EGA: 38 weeks 3 days HC/AC Ratio: 0.95 The gestational age by today's ultrasound is 38 weeks 1 days (+/- 19 days gestation). Estimated Weight: 3451 grams, +/- 518 grams ( 7 lb 10 oz). Weight Percentile for gestational age: 80 % IMPRESSION: 1. Single, live intrauterine gestation 37 weeks, 3 days by LMP. Today's ultrasound measurements correlate with a gestational age of 38 weeks 1 days. Estimated weight is 3451 grams, +/- 518 grams ( 7 lb 10 oz) which correlates to 80 %. MONTEZ is 01/24/2025. Electronically Signed:Electronical ly signed by AMANDO NOVOA II, MD, PHD at 12-Jan-2025 08:28:58 AM [facility] Normal Not Available Comment on above: Order Comment: US OB SCAN FOR GROWTH Estimated Date of Delivery: 01/29/25 Gestational Age as of 01/04/2025: 36w3d Urinalysis macro (dipstick) panel (U)on 01-11-2025 Bilirubin, UA Negative Negative - 4(70) +++ mg/dL [facility] Blood, UA Negative Negative - 50 Daniel/mcL [facility] Clarity, UA Clear [facility] Color, UA Yellow [facility] Glucose, UA Negative Negative - 2000(110) ++++ mg/dL [facility] Interpretation and review of laboratory results Abnormal [facility] Ketones, UA Positive Negative - 160(16) ++++ mg/dL [facility] Comment on above: trace Leukocytes, UA Trace Negative - 500+++ Brando/mcL [facility] Nitrite, UA Negative Negative - Positive [facility] pH, UA 5.5 5 - 9 [facility] Protein, UA Positive Negative - 2000(20) ++++ mg/dL [facility] Comment on above: 30 Spec Grav, UA 1.03 1 - 1.03 [facility] Urobilinogen, UA 0.2 0.2 - 12 mg/dL [facility] ALL MISCELLANEOUS TESTon MISCELLANEOUS TEST COMMENT . [facility] Comment on above: Test Ordered: [id number] Strep Gp B Culture+Rflx Strep Gp B Culture+Rflx Negative CB Reference Range: Negative Centers for Disease Control and Prevention (CDC) and [place] [employer]nec[employer] (ACOG) guidelines for prevention of group B streptococcal (GBS) disease specify co-collection of a vaginal and rectal swab specimen to maximize sensitivity of GBS detection. Per the CDC and ACOG, swabbing both the lower vagina and rectum substantially increases the yield of detection compared with sampling the vagina alone. Penicillin G, ampicillin, or cefazolin are indicated for intrapartum prophylaxis of GBS colonization. Reflex susceptibility testing should be performed prior to use of clindamycin only on GBS isolates from penicillin- allergic women who are considered a high risk for anaphylaxis. Treatment with vancomycin without additional testing is warranted if resistance to clindamycin is noted. Performed at: [address] [id number] Poultry Service Technician: Fortino Urias PhD, Phone: [phone] GROUP B STREP [id number] Group B Streptococcus Colonization Detection Culture [facility] Urinalysis macro (dipstick) panel (U)on 01-04-2025 Bilirubin, UA Negative Negative - 4(70) +++ mg/dL [facility] Blood, UA Negative Negative - 50 Daniel/mcL [facility] Clarity, UA Clear [facility] Color, UA Yellow [facility] Glucose, UA Negative Negative - 1999(110) ++++ mg/dL [facility] Interpretation and review of laboratory results Normal [facility] Ketones, UA Negative Negative - 160(16) ++++ mg/dL [facility] Leukocytes, UA Positive Negative - 500+++ Brando/mcL [facility] Comment on above: large Nitrite, UA Negative Negative - Positive [facility] pH, UA 7 5 - 9 [facility] Protein, UA Trace Negative - 1999(20) ++++ mg/dL [facility] Spec Grav, UA 1.025 1 - 1.03 [facility] Urobilinogen, UA 1.0 0.2 - 12 mg/dL [facility] Urinalysis macro (dipstick) panel (U)on 12-21-2024 Bilirubin, UA Negative Negative - 4(70) +++ mg/dL [facility] Blood, UA Negative Negative - 50 Daniel/mcL [facility] Clarity, UA Clear [facility] Color, UA Yellow [facility] Glucose, UA Positive Negative - 1999(110) ++++ mg/dL [facility] Comment on above: 100 Interpretation and review of laboratory results Abnormal [facility] Ketones, UA Negative Negative - 160(16) ++++ mg/dL [facility] Leukocytes, UA Positive Negative - 500+++ Brando/mcL [facility] Comment on above: small Nitrite, UA Negative Negative - Positive [facility] pH, UA 5.5 5 - 9 [facility] Protein, UA Positive Negative - 1999(20) ++++ mg/dL [facility] Comment on above: 30 Spec Grav, UA 1.03 1 - 1.03 [facility] Urobilinogen, UA 0.2 0.2 - 12 mg/dL [facility] US Pelvis transvaginalon EXAM: US OB TRANSVAGINAL HISTORY: Shortened cervix. COMPARISON: Ob ultrasound 11/22/2024. TECHNIQUE: Two-dimensional transvaginal grayscale ultrasound imaging of the cervix was performed. FINDINGS: The cervix measures 2.6 cm in length and the cervical os is closed. IMPRESSION: 1. Shortened cervix measuring 2.6 cm. Electronically Signed:Electronical ly signed by AMANDO NOVOA II, MD, PHD at 09-Dec-2024 07:23:05 AM [facility] Amando Novoa MD - 12/09/2024 EXAM: US OB TRANSVAGINAL HISTORY: Shortened cervix. COMPARISON: Ob ultrasound 11/22/2024. TECHNIQUE: Two-dimensional transvaginal grayscale ultrasound imaging of the cervix was performed. FINDINGS: The cervix measures 2.6 cm in length and the cervical os is closed. IMPRESSION: 1. Shortened cervix measuring 2.6 cm. Electronically Signed:Electronical ly signed by AMANDO NOVOA II, MD, PHD at 09-Dec-2024 07:23:05 AM [facility] US Pelvis transvaginalOrdere d By: Amando Novoa on 12-09-2024 [facility] Work Phone: US OB TRANSVAGINALon 025 US OB TRANSVAGINAL EXAM: US OB TRANSVAGINAL HISTORY: Shortened cervix. COMPARISON: Ob ultrasound 11/22/2024. TECHNIQUE: Two-dimensional transvaginal grayscale ultrasound imaging of the cervix was performed. FINDINGS: The cervix measures 2.6 cm in length and the cervical os is closed. IMPRESSION: 1. Shortened cervix measuring 2.6 cm. Electronically Signed:Electronical ly signed by AMANDO NOVOA II, MD, PHD at 09-Dec-2024 07:23:05 AM [facility] Normal Not Available Comment on above: Order Comment: US OB TRANSVAGINAL (CERVICAL LENGTH) Estimated Date of Delivery: 01/29/25 Gestational Age as of 12/06/2024: 32w2d US Pelvis transvaginalon Radiology Study observation (narrative) [facility] Urinalysis macro (dipstick) panel (U)on 12-06-2024 Bilirubin, UA Negative Negative - 4(70) +++ mg/dL [facility] Blood, UA Positive Negative - 50 Daniel/mcL [facility] Comment on above: Trace-Intact Clarity, UA Clear [facility] Color, UA Yellow [facility] Glucose, UA Negative Negative - 1999(110) ++++ mg/dL [facility] Interpretation and review of laboratory results Abnormal [facility] Ketones, UA Negative Negative - 160(16) ++++ mg/dL [facility] Leukocytes, UA Positive Negative - 500+++ Brando/mcL [facility] Comment on above: small Nitrite, UA Negative Negative - Positive [facility] pH, UA 6 5 - 9 [facility] Protein, UA Negative Negative - 1999(20) ++++ mg/dL [facility] Spec Grav, UA 1.03 1 - 1.03 [facility] Urobilinogen, UA 0.2 0.2 - 12 mg/dL [facility] US OB TRANSVAGINALon 025 US OB TRANSVAGINAL EXAM: US OB TRANSVAGINAL HISTORY: Shortened cervix. COMPARISON: OB ultrasound 11/08/2024. TECHNIQUE: Two-dimensional transvaginal grayscale ultrasound imaging of the cervix was performed. FINDINGS: The cervix measures 2.5 cm in length and the cervical os is closed. IMPRESSION: 1. Single, live intrauterine gestation 30 weeks, 2 days by LMP. MONTEZ is 01/29/2025. 2. Shortened cervix measuring 2.5 cm. Electronically Signed:Electronical ly signed by AMANDO NOVOA II, MD, PHD at 24-Nov-2024 08:36:46 AM [facility] Normal Not Available Comment on above: Order Comment: US OB TRANSVAGINAL (CERVICAL LENGTH) Estimated Date of Delivery: 01/29/25 Gestational Age as of 11/09/2024: 28w3d Urinalysis macro (dipstick) panel (U)on 11-22-2024 Bilirubin, UA Negative Negative - 4(70) +++ mg/dL [facility] Blood, UA Negative Negative - 50 Daniel/mcL [facility] Clarity, UA Clear [facility] Color, UA Yellow [facility] Glucose, UA Negative Negative - 1999(110) ++++ mg/dL [facility] Interpretation and review of laboratory results Abnormal [facility] Ketones, UA Negative Negative - 160(16) ++++ mg/dL [facility] Leukocytes, UA Positive Negative - 500+++ Brando/mcL [facility] Comment on above: small Nitrite, UA Negative Negative - Positive [facility] pH, UA 6 5 - 9 [facility] Protein, UA Trace Negative - 1999(20) ++++ mg/dL [facility] Spec Grav, UA 1.03 1 - 1.03 [facility] Urobilinogen, UA 1.0 0.2 - 12 mg/dL [facility] US OB FOLLOW UP TRANSABDOMIN AL APPROACHon 11-08-2024 US OB FOLLOW UP TRANSABDOMINAL APPROACH TITLE OF EXAM: OB Ultrasound: REASON FOR EXAM: Inconsistent size. COMPARISON: None. TECHNIQUE: Grayscale and M-mode Doppler imaging is performed. FINDINGS: heart rate: 156 bpm TANVI: 15.0 cm (9.3-22.9) BPD: 7.2 cm HC: 26.4 cm AC: 24.0 cm FL: 5.6 cm GA for sonogram: 28.6 wk (26.8-30.4) [place] Cervix length: 2.7 cm MONTEZ: 01/29/2025 Weight Estimate: Weight: 1280 gm / 2 lbs, 13 oz (1570-1388 gm) [place] Normal: 1258 gm (3987-4231 gm) [place] Wt%: 56% for 28.3 wks Limited for: Growth Presentation: Cephalic Amniotic Fluid: 15.0 cm Between 5th and 95 percentile. Largest Fluid Pocket: 5.4 cm Heart Rate: 156 bpm Somatic motion: Yes Cervix measures 2.65 cm in length. Os closed IMPRESSION: 1. Normal growth. 28 weeks 6 days gestational age based on AUA. 28 weeks 2 days gestational age based on previous dating. 2. The cervix measures 2.65 cm in length. This is short. Cervical os closed. OB follow-up recommended. Note: Measurements of the head are limited due to positioning. *This report is generated using voice recognition reporting ([employer]). On occasion [employer] erroneously drops words from the report or replaces the spoken word with similar sounding words. Please call with any questions/concerns regarding this report.* Dictated and transcribed 11/08/24/dpd This report has been electronically signed and approved by the interpreting radiologist. Normal Not Available Comment on above: Order Comment: US OB SCAN FOR GROWTH Estimated Date of Delivery: 01/29/25 Gestational Age as of 10/23/2024: 26w0d Urinalysis macro (dipstick) panel (U)on 11-08-2024 Bilirubin, UA Negative Negative - 4(70) +++ mg/dL [facility] Blood, UA Negative Negative - 50 Daniel/mcL [facility] Clarity, UA Clear [facility] Color, UA Yellow [facility] Glucose, UA Negative Negative - 1999(110) ++++ mg/dL [facility] Interpretation and review of laboratory results Abnormal [facility] Ketones, UA Negative Negative - 160(16) ++++ mg/dL [facility] Leukocytes, UA Trace Negative - 500+++ Brando/mcL [facility] Nitrite, UA Negative Negative - Positive [facility] pH, UA 7 5 - 9 [facility] Protein, UA Trace Negative - 1999(20) ++++ mg/dL [facility] Spec Grav, UA 1.025 1 - 1.03 [facility] Urobilinogen, UA 0.2 0.2 - 12 mg/dL [facility] GLUCOSE TOLERANCE 3 HOURon 0 11-06-2024 GLUCOSE TOLERANCE 3 HOUR mg/dL [facility] Comment on above: GLU FAST 89 (<95) Co l: 11/06/24 0650 GLU 1HR 148 (<180) Col: 11/06/24 0758 GLU 2HR 146 (<155) Col: 11/06/24 0858 GLU 3HR 94 (<140) [facility]: [facility]06[facility]24 [facility]on 10-26-2024 Glucose [Mass/Vol] 149 mg/dL High NINF - 13 0 mg/dL [facility] Interpretation and review of laboratory results Abnormal [facility] Urinalysis macro (dipstick) panel (U)on 09-21-2024 Bilirubin, UA Negative Negative - 4(70) +++ mg/dL [facility] Blood, UA Negative Negative - 50 Daniel/mcL [facility] Clarity, UA Clear [facility] Color, UA Yellow [facility] Glucose, UA Negative Negative - 1999(110) ++++ mg/dL [facility] Interpretation and review of laboratory results Abnormal [facility] Ketones, UA Negative Negative - 160(16) ++++ mg/dL [facility] Leukocytes, UA 1+ Negative - 500+++ Brando/mcL [facility] Nitrite, UA Negative Negative - Positive [facility] pH, UA 7 5 - 9 [facility] Protein, UA Trace Negative - 1999(20) ++++ mg/dL [facility] Spec Grav, UA 1.025 1 - 1.03 [facility] Urobilinogen, UA 0.2 0.2 - 12 mg/dL [facility] Urinalysis macro (dipstick) panel (U)on 08-22-2024 Bilirubin, UA Negative Negative - 4(70) +++ mg/dL [facility] Blood, UA Negative Negative - 50 Daniel/mcL [facility] Clarity, UA Clear [facility] Color, UA Yellow [facility] Glucose, UA Negative Negative - 1999(110) ++++ mg/dL [facility] Interpretation and review of laboratory results Abnormal [facility] Ketones, UA Negative Negative - 160(16) ++++ mg/dL [facility] Leukocytes, UA Moderate Negative - 500+++ Brando/mcL [facility] Nitrite, UA Negative Negative - Positive [facility] pH, UA 5 5 - 9 [facility] Protein, UA Negative Negative - 1999(20) ++++ mg/dL [facility] Spec Grav, UA 1.015 1 - 1.03 [facility] Urobilinogen, UA 0.2 0.2 - 12 mg/dL [facility] No Panel Informationon 07-26 STAPHYLOCOCCUS EPIDERMIDIS, HAEMOLYTICUS, LUGDUNENSIS, SAPROPHYTICUS (URINA 0 [facility] STAPHYLOCOCCUS EPIDERMIDIS, HAEMOLYTICUS, LUGDUNENSIS, SAPROPHYTICUS (URINA Not detected [facility] URINARY TRACT INFECTION (HTR X)on 07-26-2024 ACINETOBACTER BAUMANII 0 NO [facility] ACINETOBACTER BAUMANII Not detected [facility] MARIO ALBICANS, PARAPSILOSIS, TROPICALIS 0 [facility] MARIO ALBICANS, PARAPSILOSIS, TROPICALIS Not detected [facility] MARIO GLABRATA 0 [facility] MARIO GLABRATA Not detected [facility] MARIO KRUSEI 0 [facility] MARIO KRUSEI Not detected [facility] CITROBACTER FREUNDII 0 [facility] CITROBACTER FREUNDII Not detected NO [facility] ENTEROBACTER AEROGENES, CLOACAE 0 [facility] ENTEROBACTER AEROGENES, CLOACAE Not detected [facility] ENTEROCOCCUS FAECALIS, FAECIUM 0 [facility] ENTEROCOCCUS FAECALIS, FAECIUM Not detected [facility] ESCHERICHIA COLI 0 [facility] ESCHERICHIA COLI Not detected [facility] KLEBSIELLA PNEUMONIAE, OXYTOCA 0 [facility] [facility] KLEBSIELLA PNEUMONIAE, OXYTOCA Not detected [facility] MORGANELLA MORGANII 0 [facility] MORGANELLA MORGANII Not detected [facility] PROTEUS MIRABILIS, VULGARIS 0 [facility] PROTEUS MIRABILIS, VULGARIS Not detected [facility] PSEUDOMONAS AERUGINOSA 0 [facility] PSEUDOMONAS AERUGINOSA Not detected [facility] SERRATIA MARCESCENS 0 [facility] SERRATIA MARCESCENS Not detected [facility] STAPHYLOCOCCUS AUREUS 0 [facility] STAPHYLOCOCCUS AUREUS Not detected [facility] STREPTOCOCCUS AGALACTIAE (GROUP B STREP) 0 [facility] STREPTOCOCCUS AGALACTIAE (GROUP B STREP) Not detected [facility] STREPTOCOCCUS PYOGENES (GROUP A STREP) 0 [facility] STREPTOCOCCUS PYOGENES (GROUP A STREP) Not detected [facility] Urinalysis macro (dipstick) panel (U)on 07-25-2024 Bilirubin, UA Negative Negative - 4(70) +++ mg/dL [facility] Blood, UA Positive Negative - 50 Daniel/mcL [facility] Comment on above: trace-intact Clarity, UA Clear [facility] Color, UA Yellow [facility] Glucose, UA Negative Negative - 1999(110) ++++ mg/dL [facility] Interpretation and review of laboratory results Abnormal [facility] Ketones, UA Negative Negative - 160(16) ++++ mg/dL [facility] Leukocytes, UA Positive Negative - 500+++ Brando/mcL [facility] Comment on above: small Nitrite, UA Negative Negative - Positive [facility] pH, UA 5.5 5 - 9 [facility] Protein, UA Negative Negative - 1999(20) ++++ mg/dL [facility] Spec Grav, UA 1.01 1 - 1.03 [facility] Urobilinogen, UA 0.2 0.2 - 12 mg/dL [facility] BOX TESTon 07-20-2024 BOX TEST SENT OUT [facility] BOX1 UNITY [facility] BOX2 07/20/2024 [facility] BOX [facility] HCG ( test) Ql (U)O rdered By: Karly Mann on 06-23-2024 Interpretation and review of laboratory results Abnormal [facility] Work Phone: Preg Test, Ur Positive [facility] Work Phone: [facility] Work Phone: Urinalysis macro (dipstick) panel (U)on 06-23-2024 Bilirubin, UA Negative Negative - 4(70) +++ mg/dL [facility] Blood, UA Negative Negative - 50 Daniel/mcL [facility] Clarity, UA Clear [facility] Color, UA Yellow [facility] Glucose, UA Negative Negative - 2000(110) ++++ mg/dL [facility] Interpretation and review of laboratory results Abnormal [facility] Ketones, UA Negative Negative - 160(16) ++++ mg/dL [facility] Leukocytes, UA Positive Negative - 500+++ Brando/mcL [facility] Comment on above: small Nitrite, UA Negative Negative - Positive [facility] pH, UA 6.0 5 - 9 [facility] Protein, UA Negative Negative - 1999(20) ++++ mg/dL [facility] Spec Grav, UA 1.025 1 - 1.03 [facility] Urobilinogen, UA 0.2 0.2 - 12 mg/dL [facility] XR knee RT 2Von 05-15-2021 XR knee RT [address]V [facility] [place] [address] [place] [address] XRay Report Signed Patient: Britton Escalera MR#: [id number] : 2000 Acct:[id number] Age/Sex: 21 / F ADM Date: 05/15/21 [place] [facility] [place]: Type: [facility] Attending Dr: Benjamín Smith [...] Abelardo Romo M.D.05/15/2021 1:54 PM Dictation Location: [place] [address] Transcribed By: [facility] 05/15/21 1354 Dictated By: Abelardo Romo DO 05/15/21 1349 Signed By: 05/15/21 1354 [facility] Vital Signs Date Time Vital Sign Value Performing Clinician Dieudonne riddle 2025 14:17-0400 Body weight 123.04 kg Domenico Jorge DO Work Phone: [facility] 2025 14:17-0400 Diastolic blood pressure 74 mm[Hg] Domenico Jorge DO Work Phone: [facility] Comment on above: 124/98- first Blood pressure 2025 14:17-0400 Systolic blood pressure 120 mm[Hg] Domenico Jorge DO Work Phone: [facility] Comment on above: 124/98- first Blood pressure 01-11-2025 11:59-0400 Body weight 121.29 kg Gretchen CARCAMO Work Phone: [facility] 01-11-2025 11:59-0400 Diastolic blood pressure 70 mm[Hg] Gretchen CARCAMO Work Phone: [facility] 01-11-2025 11:59-0400 Systolic blood pressure 120 mm[Hg] Gretchen CARCAMO Work Phone: [facility] 01-04-2025 09:49-0400 Body weight 121.56 kg Domenico Jorge DO Work Phone: [facility] 01-04-2025 09:49-0400 Diastolic blood pressure 78 mm[Hg] Domenico Jorge DO Work Phone: [facility] 01-04-2025 09:49-0400 Systolic blood pressure 122 mm[Hg] Domenico Jorge DO Work Phone: [facility] 12-21-2024 14:42-0400 Body weight 117.99 kg Gretchen CARCAMO Work Phone: [facility] 12-21-2024 14:42-0400 Diastolic blood pressure 64 mm[Hg] Gretchen Jackson PA Work Phone: [facility] 12-21-2024 14:42-0400 Systolic blood pressure 110 mm[Hg] Gretchen Jameson PA Work Phone: [facility] 12-06-2024 14:45-0500 Body weight 116.12 kg Domenico Jorge DO Work Phone: [facility] 12-06-2024 14:45-0500 Diastolic blood pressure 80 mm[Hg] Domenico Jorge DO Work Phone: [facility] 12-06-2024 14:45-0500 Systolic blood pressure 106 mm[Hg] Domenico Jorge DO Work Phone: [facility] 11-22-2024 15:57-0500 Body weight 113.85 kg Gretchen Jameson PA Work Phone: [facility] 11-22-2024 15:57-0500 Diastolic blood pressure 80 mm[Hg] Gretchen Jameson PA Work Phone: [facility] 11-22-2024 15:57-0500 Systolic blood pressure 120 mm[Hg] Gretchen Gisell PA Work Phone: [facility] 11-08-2024 15:04-0500 Body weight 111.58 kg Domenico Jorge DO Work Phone: [facility] 11-08-2024 15:04-0500 Diastolic blood pressure 72 mm[Hg] Domenico Jorge DO Work Phone: [facility] 11-08-2024 15:04-0500 Systolic blood pressure 116 mm[Hg] Domenico Jorge DO Work Phone: [facility] 10-23-2024 16:20-0500 Body weight 110.22 kg Gretchen Jameson PA Work Phone: [facility] 10-23-2024 16:20-0500 Diastolic blood pressure 70 mm[Hg] Gretchen Gisell PA Work Phone: [facility] 10-23-2024 16:20-0500 Systolic blood pressure 110 mm[Hg] Gretchen Jameson PA Work Phone: [facility] 09-21-2024 09:53-0500 Body weight 109.95 kg Domenico Jorge DO Work Phone: [facility] 09-21-2024 09:53-0500 Diastolic blood pressure 68 mm[Hg] Domenico Jorge DO Work Phone: [facility] 09-21-2024 09:53-0500 Systolic blood pressure 114 mm[Hg] Domenico Jorge DO Work Phone: [facility] 08-22-2024 14:59-0500 Body weight 108.14 kg Gretchen CARCAMO Work Phone: [facility] 08-22-2024 14:59-0500 Diastolic blood pressure 62 mm[Hg] Gretchen CARCAMO Work Phone: [facility] 08-22-2024 14:59-0500 Systolic blood pressure 100 mm[Hg] Gretchen CARCAMO Work Phone: [facility] 07-25-2024 09:40-0400 Body weight 105.23 kg Domenico Jorge DO Work Phone: [facility] 07-25-2024 09:40-0400 Diastolic blood pressure 74 mm[Hg] Domenico Jorge DO Work Phone: [facility] 07-25-2024 09:40-0400 Systolic blood pressure 110 mm[Hg] Domenico Jorge DO Work Phone: [facility] 06-23-2024 10:36-0400 Body weight 104.1 kg [facility] 06-23-2024 10:36-0400 Diastolic blood pressure 76 mm[Hg] [facility] 06-23-2024 10:36-0400 Systolic blood pressure 112 mm[Hg] [facility] Healthcare Encounters Encounter Date Encounter Type Care Provider Facility Start: 2025 End: 2025 ambulatory DOMENICO JORGE Not Available Start: 2025 End: 2025 Bamboo flowsheet Domenico Jorge DO Work Phone: [facility] Start: 2025 End: 2025 Bamboo flowsheet Domenico Jorge DO Work Phone: [facility] Start: 2025 End: 2025 flow sheet Domenico Jorge DO Work Phone: [facility] Comment on above: Third trimester preg matthew; 38 weeks gestation of Start: 01-11-2025 End: 01-11-2025 flow sheet Gretchen CARCAMO Work Phone: [facility] Comment on above: 37 weeks gestation o f ; Third trimester ; Upper respiratory tract infection, unspecified type Start: 01-11-2025 End: 01-11-2025 ambulatory GRETCHEN JAMESON Not Available Start: 01-04-2025 End: 01-08-2025 Clinisync Result Encounter Domenico Jorge DO Work Phone: [facility] Unsolicited Start: 01-04-2025 End: 01-08-2025 Clinisync Result Encounter Domenico Jorge DO Work Phone: [facility] Unsolicited Start: 01-04-2025 End: 01-04-2025 flow sheet Domenico Jorge DO Work Phone: [facility] Comment on above: Third trimester preg matthew; 36 weeks gestation of ; Excessive growth affecting management of , antepartum, single or unspecified fetus Start: 01-04-2025 End: 01-04-2025 ambulatory DOMENICO JORGE Not Available Start: 12-21-2024 End: 12-21-2024 ambulatory GRETCHEN JAMESON Not Available Start: 12-21-2024 End: 12-21-2024 flow sheet Gretchen CARCAMO Work Phone: [facility] Comment on above: 34 weeks gestation o f ; Third trimester ; Nonintractable headache, unspecified chronicity pattern, unspecified headache type; History of miscarriage Start: 12-21-2024 End: 12-21-2024 Bamboo flowsheet Gretchen CARCAMO Work Phone: [facility] Start: 12-21-2024 End: 12-21-2024 Bamboo flowsheet Gretchen CARCAMO Work Phone: [facility] Start: 12-08-2024 End: 12-08-2024 ambulatory DOMENICO JORGE Not Available Start: 12-06-2024 End: 12-06-2024 flow sheet Domenico Jorge DO Work Phone: [facility] Comment on above: Third trimester preg matthew; 32 weeks gestation of ; Short cervix affecting Start: 12-06-2024 End: 12-06-2024 ambulatory DOMENICO JORGE Not Available Start: 12-06-2024 End: 12-06-2024 Bamboo flowsheet Domenico Jorge DO Work Phone: [facility] Start: 12-06-2024 End: 12-06-2024 Bamboo flowsheet Domenico Jorge DO Work Phone: [facility] Start: 11-22-2024 End: 11-22-2024 flow sheet Gretchen CARCAMO Work Phone: [facility] Comment on above: Third trimester preg matthew; 30 weeks gestation of ; History of miscarriage Start: 11-22-2024 End: 11-22-2024 ambulatory GRETCHEN JAMESON Not Available Start: 11-08-2024 End: 11-08-2024 flow sheet Domenico Jorge DO Work Phone: [facility] Comment on above: Third trimester preg matthew; 28 weeks gestation of Start: 11-08-2024 End: 11-08-2024 ambulatory DOMENICO JORGE Not Available Start: 11-06-2024 End: 11-06-2024 Clinisync Result Encounter Domenico Jorge DO Work Phone: [facility] Unsolicited Start: 11-06-2024 End: 11-06-2024 Clinisync Result Encounter Domenico Jorge DO Work Phone: [facility] Unsolicited Start: 10-26-2024 End: 10-26-2024 Clinisync Result Encounter Domenico Jorge DO Work Phone: [facility] Unsolicited Start: 10-26-2024 End: 10-26-2024 Clinisync Result Encounter Domenico Jorge DO Work Phone: [facility] Unsolicited Start: 10-23-2024 End: 10-23-2024 ambulatory GRETCHEN JAMESON Not Available Start: 10-23-2024 End: 10-23-2024 flow sheet Gretchen CARCAMO Work Phone: [facility] Comment on above: 26 weeks [...] Date Procedure Procedure Detail Performing Clinician Start: 2025 Urnls dip stick/tabl et rgnt non-auto w/o micrscp Domenico Jorge DO Work Phone: Start: 01-11-2025 Urnls dip stick/tabl et rgnt non-auto w/o micrscp Gretchen CARCAMO Work Phone: Start: 01-04-2025 Urnls dip stick/tabl et rgnt non-auto w/o micrscp Domenico Jorge DO Work Phone: Start: 01-04-2025 ALL MISCELLANEOUS TEST Domenico Jorge DO Work Phone: Start: 12-21-2024 Urnls dip stick/tabl et rgnt non-auto w/o micrscp Gretchen CARCAMO Work Phone: Start: 12-06-2024 Urnls dip stick/tabl et rgnt non-auto w/o micrscp Domenico Jorge DO Work Phone: Start: 11-22-2024 Urnls dip stick/tabl et rgnt non-auto w/o micrscp Gretchen CARCAMO Work Phone: Start: 11-08-2024 Urnls dip stick/tabl et rgnt non-auto w/o micrscp Domenico Jorge DO Work Phone: Start: 11-06-2024 GLUCOSE TOLERANCE 3 HOUR Domenico Jorge DO Work Phone: Start: 10-26-2024 GLUCOSE 1 HOUR Domenico Fa [...] Work Phone: Start: 07-20-2024 BOX TEST Domenico Fascott o DO Work Phone: Start: 06-23-2024 Urnls dip stick/tabl et rgnt non-auto w/o micrscp Domenico Kilgoreo DO Work Phone: Plan of Treatment Date Care Activity Detail Author Start: 06-11-2025 Influenza vaccination Influenz a Vaccine (Season Ended) [facility] Start: 2025 End: 2025 Patient encounter procedure 2025 2:00 PM EDT Routine [facility] [address] [facility] [place] [address] Domenico Patel, DO [address] [place], [place] [id number] [facility] Start: 01-11-2025 End: 01-11-2025 Patient encounter procedure 01/11/2025 11:30 AM EDT Routine [facility] [address] [facility] [place] [phone] Gretchen Jameson PA [address] [place], [facility] Start: 01-11-2025 End: 01-11-2025 Professional / ancillary services management 01/11/2025 11:00 AM EDT Ancillary Procedure [facility] [address] [place] [address] [facility] Start: 01-04-2025 End: 01-04-2026 CULTURE, GROUP B STREP WITH SUSCEPTIBLITY CULTURE, GROUP B STREP WITH SUSCEPTIBLITY Lab Routine Third trimester Expected: 01/04/2025, Expires: 01/04/2026 [facility] Healthcare Work Phone: Comment on above: Expected: 01/04/2025 , Expires: 01/04/2026 Start: 01-04-2025 End: 01-04-2026 US for US OB follow up transabdominal approach Imaging Routine Excessive growth affecting management of , antepartum, single or unspecified fetus Expected: 01/04/2025, Expires: 01/04/2026 [facility] Comment on above: Expected: 01/04/2025 , Expires: 01/04/2026 Start: 01-04-2025 End: 01-04-2025 Patient encounter procedure 01/04/2025 9:30 AM EDT Routine [facility] [address] [place] [address] Domenico Patel, DO [address] [place] [address] [facility] Start: 12-21-2024 End: 12-21-2024 Patient encounter procedure 12/21/2024 2:30 PM EDT Routine [facility] [address] [facility] [address] [place] [address] Gretchen Jameson, PA [address] [place] [address] [place] [address] [facility] Start: 12-06-2024 End: 12-06-2024 Patient encounter procedure [facility] Comment on above: Arrived Start: 11-22-2024 End: 11-22-2024 Patient encounter procedure 11/22/2024 3:10 PM EST Routine [facility] [address] [facility] [place] [place] [address] Gretchen Jameson PA [address] [place] [address] [place] [address] [facility] Start: 11-08-2024 End: 11-08-2024 Patient encounter procedure 11/08/2024 2:30 PM EST Routine [facility] [address] [place] [place] [phone] Domenico Patel, DO [address] [place] [address] [facility] Start: 11-08-2024 End: 11-08-2024 Professional / ancillary services management 11/08/2024 2:00 PM EST Ancillary Procedure [facility] [address] [place] [address] [facility] Start: 10-23-2024 End: 10-23-2024 Patient encounter procedure 10/23/2024 3:30 PM EST Routine [facility] [address] [place] [address] Gretchen Jameson PA [address] [place] [address] [facility] Start: 10-23-2024 End: 10-23-2025 US for US OB follow up transabdominal approach Imaging Routine size inconsistent with dates Expected: 10/23/2024, Expires: 10/23/2025 [facility] Healthcare Work Phone: Comment on above: Expected: 10/23/2024 , Expires: 10/23/2025 Start: 09-21-2024 End: 09-21-2025 CBC panel - Blood by Automated count CBC Lab Routine Second trimester Diabetes mellitus screening Expected: 09/21/2024 (Approximate), Expires: 09/21/2025 [facility] Healthcare Work Phone: Comment on above: Expected: 09/21/2024 (Approximate), Expires: 09/21/2025 Start: 09-21-2024 End: 09-21-2025 Measurement of glucose 1 hour after glucose challenge for glucose tolerance test Glucose tolerance, 1 hour Lab Routine Second trimester Diabetes mellitus screening Expected: 09/21/2024 (Approximate), Expires: 09/21/2025 [facility] Comment on above: Expected: 09/21/2024 (Approximate), Expires: 09/21/2025 Start: 09-21-2024 End: 09-21-2024 Patient encounter procedure 09/21/2024 9:20 AM EST Routine [facility] [address] [place] [address] Domenico Patel, DO [address] [place] [address] [facility] Start: 08-22-2024 End: 08-22-2024 Patient encounter procedure 08/22/2024 2:40 PM EST Routine [facility] [address] [place] [phone] Gretchen Jameson PA [address] [place] [address] [facility] Start: 08-22-2024 End: 10-22-2024 [...] AM EDT Routine [facility] [address] [place] [address] Domenico Patel, DO [address] [place] [address] [facility] Start: 06-23-2024 End: 06-23-2025 [...] gestational age Expected: 06/23/2024 (Approximate), Expires: 06/23/2025 [facility] Comment on above: Expected: 06/23/2024 (Approximate), Expires: 06/23/2025 Start: 06-23-2024 End: 06-23-2025 US Pelvis transvaginal US OB transvaginal Imaging Routine Missed menses Expected: 06/23/2024 (Approximate), Expires: 06/23/2025 [facility] Comment on above: Expected: 06/23/2024 (Approximate), Expires: 06/23/2025 Start: 06-11-2024 Influenza [facility] Bacteria identified in Urine by Culture Urine culture Microbiology Routine Hematuria, unspecified type Ordered: 07/25/2024 [facility] Healthcare Work Phone: Comment on above: Ordered: 07/25/2024 Bacteria identified in Urine by Culture Urine culture Microbiology Routine Missed menses Ordered: 06/23/2024 [facility] Comment on above: Ordered: 06/23/2024 CBC W Auto Different ial panel - Blood CBC and differential Lab Routine Missed menses Ordered: 06/23/2024 [facility] Comment on above: Ordered: 06/23/2024 Hemoglobin A1c/Hemoglobin.total in Blood Hemoglobin A1c Lab Routine Missed menses Ordered: 06/23/2024 [facility] Comment on above: Ordered: 06/23/2024 Hepatitis B virus surface Ag [Presence] in Serum or Plasma by Immunoassay Hepatitis B surface antigen Lab Routine Missed menses Ordered: 06/23/2024 [facility] Comment on above: Ordered: 06/23/2024 Hepatitis C virus Ab [Presence] in Serum or Plasma by Immunoassay Hepatitis C antibody Lab Routine Missed menses Ordered: 06/23/2024 [facility] Comment on above: Ordered: 06/23/2024 HIV-1/HIV-2 antigen/antibody combination immunoassay HIV-1 and HIV-2 antibodies Lab Routine Missed menses Ordered: 06/23/2024 [facility] Comment on above: Ordered: 06/23/2024 Reagin Ab [Presence] in Serum by RPR RPR Lab Routine Missed menses Ordered: 06/23/2024 [facility] Comment on above: Ordered: 06/23/2024 Rubella antibody, IgG Rubella an tibody, IgG Lab Routine Missed menses Ordered: 06/23/2024 [facility] Comment on above: Ordered: 06/23/2024 End: 04-05-2025 US Pelvis transvaginal US OB transvaginal Imaging Routine Short cervix affecting [id number] for 4 Occurrences starting 12/06/2024 until 04/05/2025, 1 completed [facility] Work Phone: Comment on above: [id number] for 4 Occurr ences starting 12/06/2024 until 04/05/2025, 1 completed Payers Date Payer Category Payer [facility] BCBS [id number] 2023 Unknown BCBS BCBS [id number] [id number] 2023-Present [phone] [address] [place] [address] [id number] 2023 Unknown [id number] 2002 Unknown [id number] 2.16.840.1.721386.3.579. 2.1258 2002 Unknown [id number] 2.16.840.1.031732.3.579. 2.1258 2002 Unknown [id number] 2.16.840.1.115598.3.579. 2.1258 2002 Unknown [id number] 2.16.840.1.962296.3.579. 2.1258 2002 Unknown [id number] 2.16.840.1.393435.3.579. 2.1258 2002 Unknown [id number] 2.16.840.1.257828.3.579. 2.1258 2002 Unknown [id number] 2.16.840.1.469975.3.579. 2.1258 2002 Unknown [id number] 2.16.840.1.058845.3.579. 2.1258 2002 Unknown [id number] 2.16.840.1.221235.3.579. 2.1258 2002 Unknown [id number] 2.16.840.1.624060.3.579. 2.1258 2002 Unknown [id number] 2.16.840.1.403733.3.579. 2.1258 2002 Unknown [id number] 2.16.840.1.455644.3.579. 2.1258 2002 Unknown [id number] 2.16.840.1.001382.3.579. 2.1258 2002 Unknown [id number] 2.16.840.1.096830.3.579. 2.1258 2002 Unknown [id number] 2.16.840.1.271728.3.579. 2.1259 2002 Unknown [id number] 2.16.840.1.500786.3.579. 2.1259 Social History Date Type Detail Facility Tobacco smoking stat [facility] Tobacco smoking consumption unknown [facility] Start: 05-08-2024 [facility] Start: 2002 Sex assigned at Not on file [facility] Start: 07-25-2024 Gender identity Not on file [facility] Start: 07-25-2024 Tobacco smoking stat [facility] Never smoked tobacco [facility] Start: 07-25-2024 Tobacco use and exposure Smokeless t obacco non-user [facility] Start: 07-25-2024 End: 01-11-2025 Alcoholic beverage intake Ex-drinker (finding) [facility] Start: 07-25-2024 History of Social function [facility] Clinical Notes 06-23-2024 to 2025 Emmie Schmidt [employer]ILDLIFE [employer]ICY PROFESSIONAL - 2025 2:00 PM DONA Richardson - 01/11/2025 11:30 AM Nohelia Stephens LPN - 01/04/2025 9:30 AM DONA Richardson - 12/21/2024 2:30 PM DONA Richardson - 11/22/2024 3:10 PM EST Note Date & Type Note Facility 2025 History of Presen t illness Narrative Reason for Appointment: Patient ID: Britton Escalera is a 25 y.o. female who presents for Routine Visit Patient presents today for Return OB appointment. MEDICATIONS Current Outpatient Medications Medication Instructions azithromycin (Zithromax Z-Ananda) 250 MG tablet As directed magnesium oxide (MAG-OX) 400 mg, Daily ALLERGIES No Known Allergies PROBLEMS Active Ambulatory [...] Constitutional: Appearance: Normal appearance. She is well-developed. Genitourinary: Vulva normal. Cardiovascular: Rate and Rhythm: Normal rate and [...] nursing note reviewed. Exam conducted with a break off worker present. Vitals: There is no height or weight on file to calculate BMI. BP: (!) 124/98 Patient's last menstrual period was 04/14/2024. ASSESSMENT & PLAN ICD-10-CM 1. Third trimester Z34.93 POCT urinalysis dipstick manually resulted 2. 38 weeks gestation of Z3A.38 Return OB: Patient presents today for a routine obstetrics appointment. Patient is currently 38w2d . Patient states she is doing well but has complaints of being tired due to current . Patient has verbalizes frequent movement. labor precautions was discussed/given and patient was instructed to perform kick counts three times a day. Pt to be induced 01/22/25 at 0500. Induction consents signed. Orders Placed This Encounter Procedures POCT urinalysis dipstick manually resulted Follow Up: Patient is to return to office in 6 week for pp visit Documented by Emmie Schmidt LPN on behalf of: Domenico Patel DO documented in this encounter [facility] 01-11-2025 History of Presen t illness Narrative Reason for Appointment: Patient ID: Britton Escalera is a 24 y.o. female who presents for Routine Visit Patient presents today for Return OB appointment. MEDICATIONS Current Outpatient Medications Medication Instructions magnesium oxide (MAG-OX) 400 mg, Daily ALLERGIES No Known Allergies PROBLEMS Active Ambulatory [...] SYSTEMS Review of Systems: Review of Systems All other systems reviewed and are negative. OBJECTIVE Objective: Physical Exam Constitutional: Appearance: Normal [...] nursing note reviewed. Exam conducted with a break off worker present. Vitals: There is no height or weight on file to calculate BMI. BP: 120/70 Patient's last menstrual period was 04/14/2024. ASSESSMENT & PLAN ICD-10-CM 1. 37 weeks gestation of Z3A.37 POCT urinalysis dipstick manually resulted CANCELED: POCT , urine manually resulted 2. Third trimester Z34.93 POCT urinalysis dipstick manually resulted CANCELED: POCT , urine manually resulted 3. Upper respiratory tract infection, unspecified type J06.9 Return OB: Patient presents today for a routine obstetrics appointment. Patient is currently 37w3d . Patient states she is doing well but has complaints of being tired due to current . Patient has verbalizes frequent movement. labor precautions was discussed/given and patient was instructed to perform kick counts three times a day. Orders Placed This Encounter Procedures POCT urinalysis dipstick manually resulted Follow Up: Patient is to return to office in 1 week for routine OB appointment. Documented by Kalry Mann LPN on behalf of: DONA Vieyra documented in this encounter [facility] 01-04-2025 History of Presen t illness Narrative Reason for Appointment: Patient ID: Britton Escalera is a 24 y.o. female who presents for Routine Visit Patient presents today for Return OB appointment. MEDICATIONS Current Outpatient Medications Medication Instructions magnesium oxide (MAG-OX) 400 mg, Daily ALLERGIES No Known Allergies PROBLEMS Active Ambulatory [...] SYSTEMS Review of Systems: Review of Systems All other systems reviewed and are negative. OBJECTIVE Objective: Physical Exam Constitutional: Appearance: Normal appearance. She is well-developed. Genitourinary: Vulva normal. Cardiovascular: Rate and Rhythm: Normal rate and [...] nursing note reviewed. Exam conducted with a break off worker present. Vitals: There is no height or weight on file to calculate BMI. BP: 122/78 Patient's last menstrual period was 04/14/2024. ASSESSMENT & PLAN ICD-10-CM 1. Third trimester Z34.93 POCT urinalysis dipstick manually resulted CULTURE, GROUP B STREP WITH SUSCEPTIBLITY CULTURE, GROUP B STREP WITH SUSCEPTIBLITY 2. 36 weeks gestation of Z3A.36 3. Excessive growth affecting management of , antepartum, single or unspecified fetus O36.60X0 US OB follow up transabdominal approach Patient presents today for a routine obstetrics appointment. Patient is currently 36w3d with a Estimated Date of Delivery: 01/29/25. Patient to have growth scan done due to LGA. Patient desires to have IOL on 01/22/25, but may change date at upcoming appointment after she talks with her partner. Patient to return to clinic in 1 week for routine OB appointment. Patient had GBS obtained today and is currently 2-3cm dilated. Documented by Gloria Stephens LPN on behalf of: Domenico Patel DO documented in this encounter [facility] 12-21-2024 History of Presen t illness Narrative Reason for Appointment: Patient ID: Britton Escalera is a 24 y.o. female who presents for Routine Visit Patient presents today for Return OB appointment. MEDICATIONS Current Outpatient Medications Medication Instructions magnesium oxide (MAG-OX) 400 mg, Oral, Daily Progesterone 200 mg, Vaginal, Nightly, Insert suppository vaginally every night at bedtime until 12 weeks gestation ALLERGIES No Known Allergies PROBLEMS Active Ambulatory [...] nursing note reviewed. Exam conducted with a break off worker present. Vitals: There is no height or weight on file to calculate BMI. BP: 110/64 Patient's last menstrual period was 04/14/2024. ASSESSMENT & PLAN ICD-10-CM 1. 34 weeks gestation of Z3A.34 POCT urinalysis dipstick manually resulted 2. Third trimester Z34.93 POCT urinalysis dipstick manually resulted 3. Nonintractable headache, unspecified chronicity pattern, unspecified headache type R51.9 magnesium oxide (Mag-Ox) 400 MG tablet 4. History of miscarriage Z87.59 Progesterone 200 MG suppository Return OB: Patient presents today for a routine obstetrics appointment. Patient is currently 34w3d . Patient states she is doing well but has complaints of being tired due to current . Patient has verbalizes frequent movement. labor precautions was discussed/given and patient was instructed to perform kick counts three times a day. Patient was sent in Magnesium for headaches and she was advised to continue on the Progesterone suppositories. Orders Placed This Encounter Procedures POCT urinalysis dipstick manually resulted Follow Up: Patient is to return to office in 2 week for routine OB appointment. Documented by Karly Mann LPN on behalf of: DONA Vieyra documented in this encounter [facility] 12-06-2024 History of Presen t illness Narrative Reason for Appointment: Patient ID: Britton Escalera is a 24 y.o. female who presents for Routine Visit Patient presents today for Return OB appointment. MEDICATIONS Current Outpatient Medications Medication Instructions Progesterone 200 mg, Vaginal, Nightly, Insert suppository vaginally every night at bedtime until 12 weeks gestation ALLERGIES No Known Allergies PROBLEMS Active Ambulatory [...] nursing note reviewed. Exam conducted with a break off worker present. Vitals: There is no height or weight on file to calculate BMI. BP: 106/80 Patient's last menstrual period was 04/14/2024. ASSESSMENT & PLAN ICD-10-CM 1. Third trimester Z34.93 POCT urinalysis dipstick manually resulted 2. 32 weeks gestation of Z3A.32 3. Short cervix affecting O26.879 Return OB: Patient presents today for a routine obstetrics appointment. Patient is currently 32w2d . Patient states she is doing well but has complaints of being tired due to current . Patient has verbalizes frequent movement. labor precautions was discussed/given and patient was instructed to perform kick counts three times a day. Orders Placed This Encounter Procedures POCT urinalysis dipstick manually resulted Follow Up: Patient is to return to office in 2 week for routine OB appointment. Documented by Emmie Schmidt LPN on behalf of: Domenico Patel DO documented in this encounter [facility] 11-22-2024 History of Presen t illness Narrative Reason for Appointment: Patient ID: Britton Escalera is a 24 y.o. female who presents for Routine Visit Patient presents today for Return OB appointment. MEDICATIONS Current Outpatient Medications Medication Instructions Progesterone 200 mg, Vaginal, Nightly, Insert suppository vaginally every night at bedtime until 12 weeks gestation ALLERGIES No Known Allergies PROBLEMS Active Ambulatory [...] weight on file to calculate BMI. BP: 120/80 Patient's last menstrual period was 04/14/2024. ASSESSMENT & PLAN ICD-10-CM 1. Third trimester Z34.93 POCT urinalysis dipstick manually resulted 2. 30 weeks gestation of Z3A.30 3. History of miscarriage Z87.59 Progesterone 200 MG suppository Return OB: Patient presents today for a routine obstetrics appointment. Patient is currently 30w2d . Patient states she is doing well but has complaints of being tired due to current . Patient has verbalizes frequent movement. labor precautions was discussed/given and patient was instructed to perform kick counts three times a day. Repeat US today shows cervical length of 2.5. we will start pt on progesterone suppositories Orders Placed This Encounter Procedures POCT urinalysis dipstick manually resulted Follow Up: Patient is to return to office in 2 week for routine OB appointment. Documented by DONA Vieyra on behalf of: DONA Vieyra documented in this encounter [facility] 11-08-2024 History of Presen t illness Narrative Reason [...] nursing note reviewed. Exam conducted with a break off worker present. Vitals: There is no height or weight on file to calculate BMI. BP: 116/72 Patient's last menstrual period was 04/14/2024. ASSESSMENT & PLAN ICD-10-CM 1. Third trimester Z34.93 POCT urinalysis dipstick manually resulted 2. 28 weeks gestation of Z3A.28 Return OB: Patient presents today for a routine obstetrics appointment. Patient is currently 28w2d . Patient states she is doing well but has complaints of being tired due to current . Patient has verbalizes frequent movement. labor precautions was discussed/given and patient was instructed to perform kick counts three times a day. Reviewed carrier screen with pt. Orders Placed This Encounter Procedures POCT urinalysis dipstick manually resulted Follow Up: Patient is to return to office in 2 week for routine OB appointment. Documented by Emmie Schmidt LPN on behalf of: Domenico Patel DO documented in this encounter [facility] 10-23-2024 History of Presen t illness Narrative [...] of: DONA Vieyra documented in this encounter [facility] 09-21-2024 History of Presen t illness Narrative [...] nursing note reviewed. Exam conducted with a break off worker present. Vitals: There is no height or [...] Domenico Patel DO documented in this encounter [facility] 08-22-2024 History of Presen t illness Narrative [...] and aware referral will be made to [facility] for genetic Counseling. Referral will be completed and patient will then be notified. Gloria Quiñonez LPN documented in this encounter [facility] 07-25-2024 History of Presen t illness Narrative [...] nursing note reviewed. Exam conducted with a break off worker present. Vitals: There is no height or [...] or undercooked meat, and stay away from [facility]. Patient has been consulted regarding any further do's and don'ts of . Patient voiced understanding and all questions and concerns were answered. Orders Placed This Encounter Procedures POCT urinalysis dipstick manually resulted Follow Up: Patient is to return in 4 weeks for routine OB appointment. Documented by Emmie Schmidt LPN on behalf of: Domenico Patel DO documented in this encounter [facility] 06-23-2024 History of Presen t illness Narrative [...] or undercooked meat, and stay away from [facility]. Patient has also been advised to [...] by: Lisha Chapin documented in this encounter [facility] Evaluation note Diagnosis Second trimester state, incidental 13 weeks gestation of Hematuria, unspecified type documented [facility] Diagnosis Second trimester state, incidental 17 weeks gestation of Screening, , for anatomic survey Encounter for anatomic survey documented [facility]* Diagnosis Missed menses Encounter for supervision of normal first in first trimester , unspecified gestational age documented [facility]* Diagnosis Second trimester state, incidental 21 weeks gestation of Diabetes mellitus screening Screening for diabetes mellitus documented [facility]* Diagnosis 26 weeks gestation of Third trimester state, incidental size inconsistent with dates documented [facility]* Diagnosis Third trimester state, incidental 28 weeks gestation of documented in [facility]* Diagnosis Third trimester state, incidental 30 weeks gestation of History of miscarriage Personal history of other genital system and obstetric disorders documented [facility]* Diagnosis Third trimester state, incidental 32 weeks gestation of Short cervix affecting Cervical shortening, unspecified as to episode of care or not applicable Short cervix affecting Cervical shortening, unspecified as to episode of care or not applicable [facility] Diagnosis 34 weeks gestation of Third trimester state, incidental Nonintractable headache, unspecified chronicity pattern, unspecified headache type History of miscarriage Personal history of other genital system and obstetric disorders documented [facility]* Diagnosis Third trimester state, incidental 36 weeks gestation of Excessive growth affecting management of , antepartum, single or unspecified fetus documented [facility]* Diagnosis 37 weeks gestation of Third trimester state, incidental Upper respiratory tract infection, unspecified type documented [facility] Diagnosis Third trimester state, incidental 38 weeks gestation of documented in this encounter [facility] Summary Purpose Family History No Family History Records FoundNo Family History Records Found Advance Directives No Advanced Directives Records FoundNo Advanced Directives Records Found Additional Source Comments INFORMATION SOURCE (unrecogn ized section and content) DATE CREATED AUTHOR 11/03/2021 [facility] DATE CREATED AUTHOR AUTHOR'S ORGANIZ ATION 01/19/2025 [facility] EPIC Reason for Visit [...] BE BASED ON THE PRIMARY CLINICAL RECORDS. [facility] [employer] [facility]. provides no warranty or guarantee of the accuracy or completeness of information in this document.
[2025-01-22] MEDS: 0.9 % SODIUM CHLORIDE 1,000 ML 125 ML IV (05:35)
[2025-01-22] MEDS: OXYTOCIN/0.9 % SODIUM CHLORIDE 10 UNITS/500 ML PLAST..BAG 6 UNIT IV (06:16)
[2025-01-22 06:48] LABS: Hematocrit 35.7 % (36.0-48.0); Hemoglobin 11.5 g/dL (12.0-16.0); Mean Corpuscular HGB Conc 32.2 g/dL (29.9-35.2); Mean Corpuscular Hemoglobin 26.7 pg (26.7-34.0); Mean Platelet Volume 11.5 fL (9.5-13.5); Platelet Count 280 10^3/uL (150-450); Red Cell Distribution Width 14.5 % (11.0-15.0); White Blood Count 9.7 10^3/uL (4.0-11.0)
[2025-01-22 07:54] LABS: Amphetamine Screen Urine NEGATIVE (NEGATIVE); Barbiturates Screen Urine NEGATIVE (NEGATIVE); Benzodiazepines Screen Urine NEGATIVE (NEGATIVE); Buprenorphine Screen Urine NEGATIVE (NEGATIVE); Cannabinoid Screen Urine NEGATIVE (NEGATIVE); Cocaine Screen Urine NEGATIVE (NEGATIVE); Methadone Screen Urine NEGATIVE (NEGATIVE); Methamphetamines Screen Urine NEGATIVE (NEGATIVE); Opiate Screen Urine NEGATIVE (NEGATIVE); Oxycodone Screen Urine NEGATIVE (NEGATIVE); Phencyclidine Screen Urine NEGATIVE (NEGATIVE); Tricyclic Antidepressant Urine NEGATIVE (NEGATIVE)
[2025-01-22] MEDS: 0.9 % SODIUM CHLORIDE 1,000 ML 1000 ML IV (09:14)
[2025-01-22] MEDS: ROPIVACAINE HCL/PF 400 MG/200 ML PREMIX 6 MG EPIDURAL (09:48)
--- NOTE | 2025-01-22 11:44 | PM.OBPRCVD ---
Procedure Intrapartal events: None Induction method: per pitocin protocol Delivery augmentation: rupture of membranes and pitocin Delivery monitor: external FHT and external uterine Route of delivery: Episiotomy Description: midline L&D Laceration Description: perineal - 2nd degree Delivery repair: Vicryl Estimated blood loss (mL): 5 Anesthesia type: Epidural Disposition: floor Infant Delivery date: 01/22/25 Gender: female presentation: vertex Placental delivery description: Spontaneous cord description: 3 Vessels
--- NOTE | 2025-01-22 11:45 | PM.OBPRCVD ---
Procedure Intrapartal events: None Estimated blood loss (mL): 5 Anesthesia type: Epidural Delivery date: 01/22/25 Gender: female presentation: vertex Placental delivery description: Spontaneous cord description: 3 Vessels
[2025-01-22] MEDS: OXYTOCIN/0.9 % SODIUM CHLORIDE 20 UNITS/1,000 ML PLAST..BAG 125 UNIT IV (12:04)
[2025-01-22] MEDS: LIDOCAINE HCL 1% 200 MG/20 ML MDV INJ (12:04)
[2025-01-22] MEDS: GLYCERIN/WITCH HAZEL PADS 1 PAD TOPICAL (16:07)
[2025-01-22] MEDS: BENZOCAINE/MENTHOL 85 GRAM SPRAY BOTTLE 1 APPLIC TOPICAL (16:08)
[2025-01-23 06:33] LABS: Basophils Absolute Auto 0.1 10^3/uL (0.0-0.1); Basophils Percent Auto 0.4 % (0.2-2.0); Eosinophils Percent Auto 0.2 % (0.9-7.0); Hematocrit 25.4 % (36.0-48.0); Hemoglobin 8.3 g/dL (12.0-16.0); Immature Granulocytes Abs Auto 0.14 10^3/uL (0.00-0.03); Lymphocytes Absolute Auto 3.9 10^3/uL (1.2-3.8); Lymphocytes Percent Auto 28.2 % (20.5-60.0); Mean Corpuscular HGB Conc 32.7 g/dL (29.9-35.2); Mean Corpuscular Hemoglobin 27.3 pg (26.7-34.0); Mean Corpuscular Volume 83.6 fL (81.0-99.0); Mean Platelet Volume 11.4 fL (9.5-13.5); Monocytes Absolute Auto 1.1 10^3/uL (0.3-0.8); Monocytes Percent Auto 8.4 % (1.7-12.0); Neutrophils Absolute Auto 8.4 10^3/uL (1.4-6.5); Neutrophils Percent Auto 61.8 % (43.0-75.0); Platelet Count 241 10^3/uL (150-450); Red Blood Count 3.04 10^6/uL (4.20-5.40); Red Cell Distribution Width 14.4 % (11.0-15.0); White Blood Count 13.6 10^3/uL (4.0-11.0)
--- NOTE | 2025-01-23 09:08 | P.OBPN_ITS ---
OB - PN: Subj Subjective Patient comments: no complaints [place] status: doing well and well feeding status: exclusively Exam Constitutional Vital Signs, click to edit/add: Last Vital Signs Temp 98.4 F 01/22/25 23:35 Pulse 100 H 01/22/25 23:31 Resp 18 01/22/25 23:35 BP 117/77 01/22/25 23:31 O2 Del Method Room Air 01/22/25 23:35 Documenting provider has reviewed patient's vital signs: yes Common normals: no apparent distress, average body habitus, oriented x3, no limitations, healthy appearing, alert and well nourished Exam limitations: altered mental status General appearance: cooperative Orientation/consciousness: Yes awake, Yes oriented to person, Yes oriented to place and Yes oriented to time HENMT Common normals: normocephalic Eye Common normals: EOMs intact bilaterally General eye: normal appearance of both eyes Visual acuity: acuity normal Neck & C-Spine Common normals: full ROM and no lymphadenopathy Lymph Lymphatic: no lymphadenopathy noted Chest Common normals: inspection of chest normal Respiratory Common normals: normal respiratory effort, no use of accessory muscles and clear to auscultation bilaterally (patient has inspirational wheezing in upper left base. better with cough ) Effort & inspection: able to speak in complete sentences Auscultation: clear to auscultation bilaterally Cardio Common normals: regular rate and regular rhythm Rate: regular rate Rhythm: regular rhythm GI Common normals: Normal to inspection, nondistended, normoactive bowel sounds present and soft to palpation Inspection: normal to inspection Auscultation: normoactive bowel sounds Palpation: soft Common normals: no CVA tenderness Back & Pelvis Common normals: no CVA tenderness Extremity Common normals: normal to inspection and full ROM Neuro Common normals: oriented x3 and moves all extremities Sensorium/orientation: awake and alert Psych Psychiatry clinicians, please identify where your Mental Status Exam is documented: Mental Status Exam documented in the separate MSE Common normals: mental status grossly normal Attitude: calm Thought process: normal thought process Thought content: normal thought content Results Labs Labs: Short CBC 01/23/25 Range/Units 06:22 WBC 13.6 H (4.0-11.0) 10^3/uL Hgb 8.3 L (12.0-16.0) g/dL Hct 25.4 L (36.0-48.0) % Plt Count 241 (150-450) 10^3/uL OB - PN: A/P Plan - Vaginal Delivery day: 1 Plan: discharge home Time Spent with Patient Time: Total time spent is greater than 50% in coordination of care (as documented) at patient's floor/unit and/or counseling patient: Total time spent with greater than 50% in coordination of care (as documented) at patient's floor/unit and/or counseling patient: less than 15 minutes
[2025-01-23 09:49] VITALS: BP 127/80; PULSE 94
[2025-01-23 09:50] VITALS: BP 127/80; PULSE 94; TEMP 36.9
== END 2025-01-23 16:45 | disposition home or self-care (01) | DRG 807 ==
PROVIDERS: Admitting Provider Obstetrics & Gynecology; Visit Provider Obstetrics & Gynecology
DX: O70.1 Second degree perineal laceration during delivery (principal); Z37.0 Single live birth; Z3A.39 39 weeks gestation of pregnancy
CPT/HCPCS: 36415; 51702; 59050; 59410; 80307; 85025; 85027; 86850; 86900; 86901; J2795

== ENCOUNTER 2025-01-26 09:12 | Outpatient (OUT) | payer BC, SELFPAY ==
--- OUTSIDE RECORDS SUMMARY | 2025-01-26 09:30 | XMS_ITS | CCD ---
Author Organization [facility] Care Team Providers Care Ceramic Tile Installation Helper Name Role Phone Unavailable Primary Care Provider [...] Sig (Original) azithromycin 250 mg oral tablet (7 sources) Macrolide Antimicrobial Start: 01-11-2025 azithromycin (Zithromax Z-Ananda) 250 MG tablet Indications: Upper respiratory tract infection, unspecified type As directed 6 tablet 01/11/2025 Active magnesium oxide 400 mg oral tablet (14 sources) Start: 12-21-2024 End: 07-19-2025 take 1 [...] Active Problems Problem Classification Problem Date Documented Da [...] not applicable or unspecified] 01-04-2025 Episodic Other screening for suspected conditions (not [...] Classification Problem Date Documented Da te Episodic/Chronic Other and delivery including normal (20 sources) Second trimester ; Translations: [Encounter for supervision of normal , unspecified, second trimester] Onset: 09-21-2024 07-25-2024 Episodic Residual codes; unclassified (20 sources) Gestation period, 21 weeks; Translations: [21 weeks gestation of ] Onset: 09-21-2024 09-21-2024 Episodic Results Test Name Value Interpretation Reference Range Facility ALL CBC WITH AUTO DIFFon BASOPHILS ABSOLUTE AUTO 0.1 [facility] Basophils/100 WBC (Bld) 0.4 % 0.2 - 2.0 % [facility] Eosinophils/100 WBC (Bld) 0.2 % Low 0.9 - 7.0 % [facility] Erythrocyte distribution width (RBC) [Ratio] 14.4 % 11.0 - 15.0 % [facility] Hematocrit (Bld) [Volume fraction] 25.4 % Low 36.0 - 48.0 % [facility] Hemoglobin (Bld) [Mass/Vol] 8.3 g/dL Low 12.0 - 16.0 g/dL [facility] IMMATURE GRANULOCYTES ABS AUTO 0.14 High [facility] Immature granulocytes/100 WBC (Bld) 1 % High 0.0 - 0.5 % [facility] Interpretation and review of laboratory results Abnormal [facility] LYMPHOCYTES ABSOLUTE AUTO 3.9 High [facility] Lymphocytes/100 WBC (Bld) 28.2 % 20.5 - 60.0 % [facility] MCH (RBC) [Entitic mass] 27.3 pg 26. 7 - 34.0 pg [facility] MCHC (RBC) [Mass/Vol] 32.7 g/dL 29.9 - 35.2 g/dL [facility] MCV (RBC) [Entitic vol] 83.6 fL 81.0 - 99.0 fL [facility] MONOCYTES ABSOLUTE AUTO 1.1 High N [facility] Monocytes/100 WBC (Bld) 8.4 % 1.7 - 12.0 % [facility] NEUTROPHILS ABSOLUTE AUTO 8.4 High [facility] Neutrophils/100 WBC (Bld) 61.8 % 43.0 - 75.0 % [facility] Platelet mean volume (Bld) [Entitic vol] 11.4 fL 9.5 - 13.5 fL [facility] TBH EO # 0 [facility] TB PLT 241 [facility] RBC 3.04 Low [facility] WBC 13.6 High [facility] CBC WITH PLATELET NO DI FFERENTIALon 01-22-2025 Erythrocyte distribution width (RBC) [Ratio] 14.5 % 11.0 - 15.0 % [facility] Hematocrit (Bld) [Volume fraction] 35.7 % Low 36.0 - 48.0 % [facility] Hemoglobin (Bld) [Mass/Vol] 11.5 g/dL Low 12.0 - 16.0 g/dL [facility] Interpretation and review of laboratory results Abnormal [facility] MCH (RBC) [Entitic mass] 26.7 pg 26. 7 - 34.0 pg [facility] MCHC (RBC) [Mass/Vol] 32.2 g/dL 29.9 - 35.2 g/dL [facility] MCV (RBC) [Entitic vol] 83 fL 81.0 - 99.0 fL [facility] Platelet mean volume (Bld) [Entitic vol] 11.5 fL 9.5 - 13.5 fL [facility] TBH PLT 280 [facility]H RBC 4.3 [facility] WBC 9.7 [facility] Urinalysis macro (dipstick) panel (U)on 2025 Bilirubin, UA Negative Negative - 4(70) +++ mg/dL [facility] Blood, UA Negative Negative - 50 Daniel/mcL [facility] Clarity, UA Clear [facility] Color, UA Yellow [facility] Glucose, UA Negative Negative - 2000(110) ++++ mg/dL [facility] Interpretation and review of laboratory results Abnormal [facility] Ketones, UA Negative Negative - 160(16) ++++ mg/dL [facility] Leukocytes, UA Positive Negative - 500+++ Brando/mcL [facility] Comment on above: Moderate Nitrite, UA Negative Negative - Positive [facility] pH, UA 6.5 5 - 9 [facility] Protein, UA Positive Negative - 2000(20) ++++ mg/dL [facility] Comment on above: 30mg/dL Spec Grav, UA 1.025 1 - 1.03 [facility] Urobilinogen, UA 1.0 0.2 - 12 mg/dL [facility] US OB FOLLOW UP TRANSABDOMIN AL APPROACHon [...] II, MD, PHD at 12-Jan-2025 08:28:58 AM [facility] Normal Not Available Comment on above: Order Comment: US OB SCAN FOR GROWTH Estimated Date of Delivery: 01/29/25 Gestational Age as of 01/04/2025: 36w3d Urinalysis macro (dipstick) panel (U)on 01-11-2025 Bilirubin, UA Negative Negative - 4(70) +++ mg/dL [facility] Blood, UA Negative Negative - 50 Daniel/mcL [facility] Clarity, UA Clear [facility] Color, UA Yellow [facility] Glucose, UA Negative Negative - 2000(110) ++++ mg/dL [facility] Interpretation and review of laboratory results Abnormal [facility] Ketones, UA Positive Negative - 160(16) ++++ mg/dL [facility] Comment on above: trace Leukocytes, UA Trace Negative - 500+++ Brando/mcL [facility] Nitrite, UA Negative Negative - Positive [facility] pH, UA 5.5 5 - 9 [facility] Protein, UA Positive Negative - 2000(20) ++++ mg/dL [facility] Comment on above: 30 Spec Grav, UA 1.03 1 - 1.03 [facility] Urobilinogen, UA 0.2 0.2 - 12 mg/dL [facility] ALL MISCELLANEOUS TESTon MISCELLANEOUS TEST COMMENT . [facility] Comment on above: Test Ordered: [id number] Strep Gp B Culture+Rflx Strep Gp B Culture+Rflx Negative CB Reference Range: Negative Centers for Disease Control and Prevention (CDC) and [place] [employer]etricians and Gynecologists (ACOG) guidelines [...] resistance to clindamycin is noted. Performed at: [facility] [address] [id number] Sheet Metal Foreman: Fortino Urias PhD, Phone: [phone] GROUP B STREP [id number] Group B Streptococcus Colonization Detection [facility] Urinalysis macro (dipstick) panel (U)on 01-04-2025 Bilirubin, UA Negative Negative - 4(70) +++ mg/dL [facility] Blood, UA Negative Negative - 50 Daniel/mcL [facility] Clarity, UA Clear [facility] Color, UA Yellow [facility] Glucose, UA Negative Negative - 1999(110) ++++ mg/dL [facility] Interpretation and review of laboratory results Normal [facility] Ketones, UA Negative Negative - 160(16) ++++ mg/dL [facility] Leukocytes, UA Positive Negative - 500+++ Brando/mcL [facility] Comment on above: large Nitrite, UA Negative Negative - Positive [facility] pH, UA 7 5 - 9 [facility] Protein, UA Trace Negative - 2000(20) ++++ mg/dL [facility] Spec Grav, UA 1.025 1 - 1.03 [facility] Urobilinogen, UA 1.0 0.2 - 12 mg/dL [facility] Urinalysis macro (dipstick) panel (U)on 12-21-2024 Bilirubin, UA Negative Negative - 4(70) +++ mg/dL [facility] Blood, UA Negative Negative - 50 Daniel/mcL [facility] Clarity, UA Clear [facility] Color, UA Yellow [facility] Glucose, UA Positive Negative - 1999(110) ++++ mg/dL [facility] Comment on above: 100 Interpretation and review of laboratory results Abnormal [facility] Ketones, UA Negative Negative - 160(16) ++++ mg/dL [facility] Leukocytes, UA Positive Negative - 500+++ Brando/mcL [facility] Comment on above: small Nitrite, UA Negative Negative - Positive [facility] pH, UA 5.5 5 - 9 [facility] Protein, UA Positive Negative - 2000(20) ++++ mg/dL [facility] Comment on above: 30 Spec Grav, UA 1.03 1 - 1.03 [facility] Urobilinogen, UA 0.2 0.2 - 12 mg/dL [facility] US Pelvis transvaginalon EXAM: US OB TRANSVAGINAL HISTORY: Shortened cervix. COMPARISON: ultrasound 11/22/2024. TECHNIQUE: Two-dimensional transvaginal grayscale ultrasound imaging of the cervix was performed. FINDINGS: The cervix measures 2.6 cm in length and the cervical os is closed. IMPRESSION: 1. Shortened cervix measuring 2.6 cm. Electronically Signed:Electronical ly signed by AMANDO NOVOA II, MD, PHD at 09-Dec-2024 07:23:05 AM [facility] Amando Novoa MD - 12/09/2024 EXAM: US OB TRANSVAGINAL HISTORY: Shortened cervix. COMPARISON: Ob ultrasound 11/22/2024. TECHNIQUE: Two-dimensional transvaginal grayscale ultrasound imaging of the cervix was performed. FINDINGS: The cervix measures 2.6 cm in length and the cervical os is closed. IMPRESSION: 1. Shortened cervix measuring 2.6 cm. Electronically Signed:Electronical ly signed by AMANDO NOVOA II, MD, PHD at 09-Dec-2024 07:23:05 AM [facility] US Pelvis transvaginalOrdere d By: Amando Novoa on 12-09-2024 [facility] Work Phone: US OB TRANSVAGINALon 025 US [...] II, MD, PHD at 09-Dec-2024 07:23:05 AM [facility] Normal Not Available Comment on above: Order Comment: US OB TRANSVAGINAL (CERVICAL LENGTH) Estimated Date of Delivery: 01/29/25 Gestational Age as of 12/06/2024: 32w2d US Pelvis transvaginalon Radiology Study observation (narrative) [facility] Urinalysis macro (dipstick) panel (U)on 12-06-2024 Bilirubin, UA Negative Negative - 4(70) +++ mg/dL [facility] Blood, UA Positive Negative - 50 Daniel/mcL [facility] Comment on above: Trace-Intact Clarity, UA Clear [facility] Color, UA Yellow [facility] Glucose, UA Negative Negative - 2000(110) ++++ mg/dL [facility] Interpretation and review of laboratory results Abnormal [facility] Ketones, UA Negative Negative - 160(16) ++++ mg/dL [facility] Leukocytes, UA Positive Negative - 500+++ Brando/mcL [facility] Comment on above: small Nitrite, UA Negative Negative - Positive [facility] pH, UA 6 5 - 9 [facility] Protein, UA Negative Negative - 2000(20) ++++ mg/dL [facility] Spec Grav, UA 1.03 1 - 1.03 [facility] Urobilinogen, UA 0.2 0.2 - 12 mg/dL [facility] US OB TRANSVAGINALon 11-22-2 025 US OB TRANSVAGINAL EXAM: US OB [...] II, MD, PHD at 24-Nov-2024 08:36:46 AM [facility] Normal Not Available Comment on above: Order Comment: US OB TRANSVAGINAL (CERVICAL LENGTH) Estimated Date of Delivery: 01/29/25 Gestational Age as of 11/09/2024: 28w3d Urinalysis macro (dipstick) panel (U)on 11-22-2024 Bilirubin, UA Negative Negative - 4(70) +++ mg/dL [facility] Blood, UA Negative Negative - 50 Daniel/mcL [facility] Clarity, UA Clear [facility] Color, UA Yellow [facility] Glucose, UA Negative Negative - 2000(110) ++++ mg/dL [facility] Interpretation and review of laboratory results Abnormal [facility] Ketones, UA Negative Negative - 160(16) ++++ mg/dL [facility] Leukocytes, UA Positive Negative - 500+++ Brando/mcL [facility] Comment on above: small Nitrite, UA Negative Negative - Positive [facility] pH, UA 6 5 - 9 [facility] Protein, UA Trace Negative - 2000(20) ++++ mg/dL [facility] Spec Grav, UA 1.03 1 - 1.03 [facility] Urobilinogen, UA 1.0 0.2 - 12 mg/dL [facility] US OB FOLLOW UP TRANSABDOMIN AL APPROACHon [...] 1280 gm / 2 lbs, 13 oz (0851-7566 gm) [place] Normal: 1258 gm (6026-9870 gm) [place] Wt%: 56% for 28.3 wks [...] report is generated using voice recognition reporting ([email or web address]). On occasion [email or web address] erroneously drops words from the report or [...] Negative Negative - 4(70) +++ mg/dL [facility] Blood, UA Negative Negative - 50 Daniel/mcL [facility] Clarity, UA Clear [facility] Color, UA Yellow [facility] Glucose, UA Negative Negative - 2000(110) ++++ mg/dL [facility] Interpretation and review of laboratory results Abnormal [facility] Ketones, UA Negative Negative - 160(16) ++++ mg/dL [facility] Leukocytes, UA Trace Negative - 500+++ Brando/mcL [facility] Nitrite, UA Negative Negative - Positive [facility] pH, UA 7 5 - 9 [facility] Protein, UA Trace Negative - 2000(20) ++++ mg/dL [facility] Spec Grav, UA 1.025 1 - 1.03 [facility] Urobilinogen, UA 0.2 0.2 - 12 mg/dL [facility] GLUCOSE TOLERANCE 3 HOURon 0 11-06-2024 GLUCOSE TOLERANCE 3 HOUR mg/dL [facility] Comment on above: GLU FAST 89 (<95) Co l: 11/06/24 0650 GLU 1HR 148 (<180) Col: 11/06/24 0758 GLU 2HR 146 (<155) Col: 11/06/24 0858 GLU 3HR 94 (<140) Col: 11/06/24 0956 [facility] GLUCOSE 1 HOURon 10-26-2024 Glucose [Mass/Vol] 149 mg/dL High NINF - 13 0 mg/dL [facility] Interpretation and review of laboratory results Abnormal [facility] Urinalysis macro (dipstick) panel (U)on 09-21-2024 Bilirubin, UA Negative Negative - 4(70) +++ mg/dL [facility] Blood, UA Negative Negative - 50 Daniel/mcL [facility] Clarity, UA Clear [facility] Color, UA Yellow [facility] Glucose, UA Negative Negative - 1999(110) ++++ mg/dL [facility] Interpretation and review of laboratory results Abnormal [facility] Ketones, UA Negative Negative - 160(16) ++++ mg/dL [facility] Leukocytes, UA 1+ Negative - 500+++ Brando/mcL [facility] Nitrite, UA Negative Negative - Positive [facility] pH, UA 7 5 - 9 [facility] Protein, UA Trace Negative - 1999(20) ++++ mg/dL [facility] Spec Grav, UA 1.025 1 - 1.03 [facility] Urobilinogen, UA 0.2 0.2 - 12 mg/dL [facility] Urinalysis macro (dipstick) panel (U)on 08-22-2024 Bilirubin, UA Negative Negative - 4(70) +++ mg/dL [facility] Blood, UA Negative Negative - 50 Daniel/mcL [facility] Clarity, UA Clear [facility] Color, UA Yellow [facility] Glucose, UA Negative Negative - 1999(110) ++++ mg/dL [facility] Interpretation and review of laboratory results Abnormal [facility] Ketones, UA Negative Negative - 160(16) ++++ mg/dL [facility] Leukocytes, UA Moderate Negative - 500+++ Brando/mcL [facility] Nitrite, UA Negative Negative - Positive [facility] pH, UA 5 5 - 9 [facility] Protein, UA Negative Negative - 1999(20) ++++ mg/dL [facility] Spec Grav, UA 1.015 1 - 1.03 [facility] Urobilinogen, UA 0.2 0.2 - 12 mg/dL [facility] No Panel Informationon 07-26 STAPHYLOCOCCUS EPIDERMIDIS, HAEMOLYTICUS, LUGDUNENSIS, SAPROPHYTICUS (URINA 0 [facility] STAPHYLOCOCCUS EPIDERMIDIS, HAEMOLYTICUS, LUGDUNENSIS, SAPROPHYTICUS (URINA Not detected [facility] URINARY TRACT INFECTION (HTR X)on 07-26-2024 ACINETOBACTER BAUMANII 0 NO [facility] ACINETOBACTER BAUMANII Not detected [facility] MARIO ALBICANS, PARAPSILOSIS, TROPICALIS 0 [facility] MARIO ALBICANS, PARAPSILOSIS, TROPICALIS Not detected [facility] MARIO GLABRATA 0 [facility] MARIO GLABRATA Not detected [facility] MARIO KRUSEI 0 [facility] MARIO KRUSEI Not detected [facility] CITROBACTER FREUNDII 0 [facility] CITROBACTER FREUNDII Not detected NO [facility] ENTEROBACTER AEROGENES, CLOACAE 0 [facility] ENTEROBACTER AEROGENES, CLOACAE Not detected [facility] ENTEROCOCCUS FAECALIS, FAECIUM 0 [facility] ENTEROCOCCUS FAECALIS, FAECIUM Not detected [facility] ESCHERICHIA COLI 0 [facility] ESCHERICHIA COLI Not detected [facility] KLEBSIELLA PNEUMONIAE, OXYTOCA 0 [facility] KLEBSIELLA PNEUMONIAE, OXYTOCA Not detected [facility] MORGANELLA MORGANII 0 [facility] MORGANELLA MORGANII Not detected [facility] PROTEUS MIRABILIS, VULGARIS 0 [facility] PROTEUS MIRABILIS, VULGARIS Not detected [facility] PSEUDOMONAS AERUGINOSA 0 NO [facility] PSEUDOMONAS AERUGINOSA Not detected [facility] SERRATIA MARCESCENS 0 [facility] SERRATIA MARCESCENS Not detected [facility] STAPHYLOCOCCUS AUREUS 0 [facility] STAPHYLOCOCCUS AUREUS Not detected [facility] STREPTOCOCCUS AGALACTIAE (GROUP B STREP) 0 [facility] STREPTOCOCCUS AGALACTIAE (GROUP B STREP) Not detected [facility] STREPTOCOCCUS PYOGENES (GROUP A STREP) 0 [facility] STREPTOCOCCUS PYOGENES (GROUP A STREP) Not detected [facility] Urinalysis macro (dipstick) panel (U)on 07-25-2024 Bilirubin, UA Negative Negative - 4(70) +++ mg/dL [facility] Blood, UA Positive Negative - 50 Daniel/mcL [facility] Comment on above: trace-intact Clarity, UA Clear [facility] Color, UA Yellow [facility] Glucose, UA Negative Negative - 2000(110) ++++ mg/dL [facility] Interpretation and review of laboratory results Abnormal [facility] Ketones, UA Negative Negative - 160(16) ++++ mg/dL [facility] Leukocytes, UA Positive Negative - 500+++ Brando/mcL [facility] Comment on above: small Nitrite, UA Negative Negative - Positive [facility] pH, UA 5.5 5 - 9 [facility] Protein, UA Negative Negative - 1999(20) ++++ mg/dL [facility] Spec Grav, UA 1.01 1 - 1.03 [facility] Urobilinogen, UA 0.2 0.2 - 12 mg/dL [facility] BOX TESTon 07-20-2024 BOX TEST SENT OUT [facility] BOX1 [facility] BOX2 07/20/2024 [facility] BOX [facility] HCG ( test) Ql (U)O rdered By: Karly Mann on 06-23-2024 Interpretation and review of laboratory results Abnormal [facility] Work Phone: Preg Test, Ur Positive [facility] Work Phone: [facility] Work Phone: Urinalysis macro (dipstick) panel (U)on 06-23-2024 Bilirubin, UA Negative Negative - 4(70) +++ mg/dL [facility] Blood, UA Negative Negative - 50 Daniel/mcL [facility] Clarity, UA Clear [facility] Color, UA Yellow [facility] Glucose, UA Negative Negative - 1999(110) ++++ mg/dL [facility] Interpretation and review of laboratory results Abnormal [facility] Ketones, UA Negative Negative - 160(16) ++++ mg/dL [facility] Leukocytes, UA Positive Negative - 500+++ Brando/mcL [facility] Comment on above: small Nitrite, UA Negative Negative - Positive [facility] pH, UA 6.0 5 - 9 [facility] Protein, UA Negative Negative - 1999(20) ++++ mg/dL [facility] Spec Grav, UA 1.025 1 - 1.03 [facility] Urobilinogen, UA 0.2 0.2 - 12 mg/dL [facility] XR knee RT 2Von 05-15-2021 XR knee RT 2V [facility] Main [address] [address] XRay Report Signed Patient: Britton Escalera MR#: [id number] : 2000 Acct:[id number] Age/Sex: 21 / F ADM Date: 05/15/21 Loc: [facility] [place] [facility] Room: Type: [facility] Attending Dr: Benjamín Smith MD Ordering [...] Abelardo Romo M.D.05/15/2021 1:54 PM Dictation Location: [place] [address] Transcribed By: [facility] 05/15/21 1354 Dictated By: Abelardo Romo DO 05/15/21 1349 Signed By: 05/15/21 1354 [facility] Vital Signs Date Time Vital Sign Value Performing Clinician Juani estrellay 2025 14:17-0400 Body weight 123.04 kg Domenico Jorge DO Work Phone: [facility] 2025 14:17-0400 Diastolic blood pressure 74 mm[Hg] Domenico Jorge DO Work Phone: [facility] Comment on above: 124/98- first Blood pressure 2025 14:17-0400 Systolic blood pressure 120 mm[Hg] Domenico Jorge DO Work Phone: [facility] Comment on above: 124/98- first Blood pressure 01-11-2025 11:59-0400 Body weight 121.29 kg Gretchen CARCAMO Work Phone: [facility] 01-11-2025 11:59-0400 Diastolic blood pressure 70 mm[Hg] Gretchen CARCAMO Work Phone: [facility] 01-11-2025 11:59-0400 Systolic blood pressure 120 mm[Hg] Gretchen CARCAMO Work Phone: [facility] 01-04-2025 09:49-0400 Body weight 121.56 kg Domenico Jorge DO Work Phone: [facility] 01-04-2025 09:49-0400 Diastolic blood pressure 78 mm[Hg] Domenico Jorge DO Work Phone: [facility] 01-04-2025 09:49-0400 Systolic blood pressure 122 mm[Hg] Domenico Jorge DO Work Phone: [facility] 12-21-2024 14:42-0400 Body weight 117.99 kg Gretchen Jameson PA Work Phone: [facility] 12-21-2024 14:42-0400 Diastolic blood pressure 64 mm[Hg] Gretchen Jameson PA Work Phone: [facility] 12-21-2024 14:42-0400 Systolic blood pressure 110 mm[Hg] Gretchen Jameson PA Work Phone: [facility] 12-06-2024 14:45-0500 Body weight 116.12 kg Domenico Jorge DO Work Phone: [facility] 12-06-2024 14:45-0500 Diastolic blood pressure 80 mm[Hg] Domenico Jorge DO Work Phone: [facility] 12-06-2024 14:45-0500 Systolic blood pressure 106 mm[Hg] Domenico Jorge DO Work Phone: [facility] 11-22-2024 15:57-0500 Body weight 113.85 kg Gretchen Jameson PA Work Phone: [facility] 11-22-2024 15:57-0500 Diastolic blood pressure 80 mm[Hg] Gretchen Jameson PA Work Phone: [facility] 11-22-2024 15:57-0500 Systolic blood pressure 120 mm[Hg] Gretchen Gisell PA Work Phone: [facility] 11-08-2024 15:04-0500 Body weight 111.58 kg Domenico Jorge DO Work Phone: [facility] 11-08-2024 15:04-0500 Diastolic blood pressure 72 mm[Hg] Domenico Jorge DO Work Phone: [facility] 11-08-2024 15:04-0500 Systolic blood pressure 116 mm[Hg] Domenico Jorge DO Work Phone: [facility] 10-23-2024 16:20-0500 Body weight 110.22 kg Gretchen Gisell PA Work Phone: [facility] 10-23-2024 16:20-0500 Diastolic blood pressure 70 mm[Hg] Gretchen Gisell PA Work Phone: [facility] 10-23-2024 16:20-0500 Systolic blood pressure 110 mm[Hg] Gretchen Gisell PA Work Phone: [facility] 09-21-2024 09:53-0500 Body weight 109.95 kg Domenico Jorge DO Work Phone: [facility] 09-21-2024 09:53-0500 Diastolic blood pressure 68 mm[Hg] Domenico Jorge DO Work Phone: [facility] 09-21-2024 09:53-0500 Systolic blood pressure 114 mm[Hg] Domenico Jorge DO Work Phone: [facility] 08-22-2024 14:59-0500 Body weight 108.14 kg Gretchen Gisell PA Work Phone: [facility] 08-22-2024 14:59-0500 Diastolic blood pressure 62 mm[Hg] Gretchen Gisell PA Work Phone: [facility] 08-22-2024 14:59-0500 Systolic blood pressure 100 mm[Hg] Gretchen [place] PA Work Phone: [facility] 07-25-2024 09:40-0400 Body weight 105.23 kg Domenico Jorge DO Work Phone: [facility] 07-25-2024 09:40-0400 Diastolic blood pressure 74 mm[Hg] Domenico Jorge DO Work Phone: [facility] 07-25-2024 09:40-0400 Systolic blood pressure 110 mm[Hg] Domenico Jorge DO Work Phone: [facility] 06-23-2024 10:36-0400 Body weight 104.1 kg [facility] 06-23-2024 10:36-0400 Diastolic blood pressure 76 mm[Hg] [facility] 06-23-2024 10:36-0400 Systolic blood pressure 112 mm[Hg] [facility] Nurse [facility] Encounters Encounter Date Encounter Type Care Provider Facility Start: 01-23-2025 End: 01-23-2025 Clinisync Result Encounter Domenico Jorge DO Work Phone: [facility] Unsolicited Start: 01-23-2025 End: 01-23-2025 Clinisync Result Encounter Domenico Jorge DO Work Phone: [facility] Start: 01-22-2025 End: 01-22-2025 Clinisync Result Encounter Domenico Jorge DO Work Phone: [facility]olic[facility] Start: 01-22-2025 End: 01-22-2025 Clinisync Result Encounter Domenico Jorge DO Work Phone: [facility]solic[facility] Start: 2025 End: 2025 ambulatory DOMENICO JORGE [...] Start: 01-11-2025 End: 01-11-2025 flow sheet Gretchen Jameson PA Work Phone: [facility] Comment on [...] Date Procedure Procedure Detail Performing Clinician Start: 01-23-2025 ALL CBC WITH AUTO DIFF Domenico Jorge DO Work Phone: Start: 01-22-2025 [facility] CBC WITH PLATEL ET NO DIFFERENTIAL Domenico Jorge DO Work Phone: Start: 2025 Urnls dip stick/tabl et rgnt non-auto w/o micrscp Domenico Jorge DO Work Phone: Start: 01-11-2025 Urnls dip stick/tabl et rgnt non-auto w/o micrscp Gretchne Jameson PA Work Phone: Start: 01-04-2025 Urnls dip stick/tabl et rgnt non-auto w/o micrscp Domenico Jorge DO Work Phone: Start: 01-04-2025 ALL MISCELLANEOUS TEST Domenico Kilgoreo DO Work Phone: Start: 12-21-2024 Urnls dip [...] Influenza vaccination Influenz a Vaccine (Season Ended) [facility] Start: 2025 End: 2025 Patient encounter procedure 2025 2:00 PM EDT Routine [facility] [address] [place] [id number] Domenico Patel DO [address] [place], [place] [id number] [facility] Start: 01-11-2025 End: 01-11-2025 Patient encounter procedure 01/11/2025 11:30 AM EDT Routine [facility] [address] [place] [address] Gretchen Jameson PA [address] [place] [address] [facility] Start: 01-11-2025 End: 01-11-2025 Professional / ancillary services management 01/11/2025 11:00 AM EDT Ancillary Procedure [facility] [address] [place] [address] [facility] Start: 01-04-2025 End: 01-04-2026 CULTURE, GROUP B STREP WITH SUSCEPTIBLITY CULTURE, GROUP B STREP WITH SUSCEPTIBLITY Lab Routine Third trimester Expected: 01/04/2025, Expires: 01/04/2026 [facility] Work Phone: Comment on above: Expected: 01/04/2025 , Expires: 01/04/2026 Start: 01-04-2025 End: 01-04-2026 US for US OB follow up transabdominal approach Imaging Routine Excessive growth affecting management of , antepartum, single or unspecified fetus Expected: 01/04/2025, Expires: 01/04/2026 [facility] Comment on above: Expected: 01/04/2025 , Expires: 01/04/2026 Start: 01-04-2025 End: 01-04-2025 Patient encounter procedure 01/04/2025 9:30 AM EDT Routine [facility] [address] [place] [phone] Domenico Patel, DO [address] [place] [address] [facility] Start: 12-21-2024 End: 12-21-2024 Patient encounter procedure 12/21/2024 2:30 PM EDT Routine [facility] [address] [place] [phone] Gretchen Jameson, PA [address] [place] [address] [facility] Start: 12-06-2024 End: 12-06-2024 Patient encounter procedure [facility] Comment on above: Arrived Start: 11-22-2024 End: 11-22-2024 Patient encounter procedure 11/22/2024 3:10 PM EST Routine [facility] [address] [place] [phone] Gretchen Jameson, PA [address] [place] [address] [facility] Start: 11-08-2024 End: 11-08-2024 Patient encounter procedure 11/08/2024 2:30 PM EST Routine [facility] [address] [place] [address] Domenico Patel, DO [address] [place] [address] [facility] Start: 11-08-2024 End: 11-08-2024 Professional / ancillary services management 11/08/2024 2:00 PM EST Ancillary Procedure [facility] [address] [place] [phone] [facility] Start: 10-23-2024 End: 10-23-2024 Patient encounter procedure 10/23/2024 3:30 PM EST Routine [facility] [address] [place] [phone] Gretchen Jameson PA [address] [place] [address] [facility] Start: 10-23-2024 End: 10-23-2025 US for US OB follow up transabdominal approach Imaging Routine size inconsistent with dates Expected: 10/23/2024, Expires: 10/23/2025 [facility] Work Phone: Comment on above: Expected: 10/23/2024 , Expires: 10/23/2025 Start: 09-21-2024 End: 09-21-2025 CBC panel - Blood by Automated count CBC Lab Routine Second trimester Diabetes mellitus screening Expected: 09/21/2024 (Approximate), Expires: 09/21/2025 [facility] Work Phone: Comment on above: Expected: 09/21/2024 (Approximate), Expires: 09/21/2025 Start: 09-21-2024 End: 09-21-2025 Measurement of glucose 1 hour after glucose challenge for glucose tolerance test Glucose tolerance, 1 hour Lab Routine Second trimester Diabetes mellitus screening Expected: 09/21/2024 (Approximate), Expires: 09/21/2025 [facility] Comment on above: Expected: 09/21/2024 (Approximate), Expires: 09/21/2025 Start: 09-21-2024 End: 09-21-2024 Patient encounter procedure 09/21/2024 9:20 AM EST Routine [facility] [address] [place] [phone] Domenico Patel DO [address] [place] [address] [facility] Start: 08-22-2024 End: 08-22-2024 Patient encounter procedure 08/22/2024 2:40 PM EST Routine [facility] [address] [place] [phone] Gretchen Jameson PA [address] [place], [place] [phone] [facility] Start: 08-22-2024 End: 10-22-2024 [...] AM EDT Routine [facility] [address] [place] [phone] Domenico Patel DO [address] [place] [address] [facility] Start: 06-23-2024 End: 06-23-2025 [...] gestational age Expected: 06/23/2024 (Approximate), Expires: 06/23/2025 [facility] Comment on above: Expected: 06/23/2024 (Approximate), Expires: 06/23/2025 Start: 06-23-2024 End: 06-23-2025 US Pelvis transvaginal US OB transvaginal Imaging Routine Missed menses Expected: 06/23/2024 (Approximate), Expires: 06/23/2025 [facility] Comment on above: Expected: 06/23/2024 (Approximate), Expires: 06/23/2025 Start: 06-11-2024 Influenza vaccination Influenza Vacc ine (#1) [facility] Bacteria identified in Urine by Culture Urine culture Microbiology Routine Hematuria, unspecified type Ordered: 07/25/2024 [facility] Work Phone: Comment on above: Ordered: 07/25/2024 Bacteria identified in Urine by Culture Urine culture Microbiology Routine Missed menses Ordered: 06/23/2024 [facility] Comment on above: Ordered: 06/23/2024 CBC W Auto Different ial panel - Blood CBC and differential Lab Routine Missed menses Ordered: 06/23/2024 [facility] Comment on above: Ordered: 06/23/2024 Hemoglobin A1c/Hemoglobin.total in Blood Hemoglobin A1c Lab Routine Missed menses Ordered: 06/23/2024 [facility] Comment on above: Ordered: 06/23/2024 Hepatitis B virus surface Ag [Presence] in Serum or Plasma by Immunoassay Hepatitis B surface antigen Lab Routine Missed menses Ordered: 06/23/2024 [facility] Comment on above: Ordered: 06/23/2024 Hepatitis C virus Ab [Presence] in Serum or Plasma by Immunoassay Hepatitis C antibody Lab Routine Missed menses Ordered: 06/23/2024 [facility] Comment on above: Ordered: 06/23/2024 HIV-1/HIV-2 antigen/antibody combination immunoassay HIV-1 and HIV-2 antibodies Lab Routine Missed menses Ordered: 06/23/2024 [facility] Comment on above: Ordered: 06/23/2024 Reagin Ab [Presence] in Serum by RPR RPR Lab Routine Missed menses Ordered: 06/23/2024 [facility] Comment on above: Ordered: 06/23/2024 Rubella antibody, IgG Rubella an tibody, IgG Lab Routine Missed menses Ordered: 06/23/2024 [facility] Comment on above: Ordered: 06/23/2024 End: 04-05-2025 US Pelvis transvaginal US OB transvaginal Imaging Routine Short cervix affecting [id number] for 4 Occurrences starting 12/06/2024 until 04/05/2025, 1 completed [facility] Work Phone: Comment on above: [id number] for 4 Occurr ences starting 12/06/2024 until 04/05/2025, 1 completed Payers Date Payer Category Payer [facility] BCBS [id number] 2023 Unknown BCBS BCBS [id number] [id number] 2023-Present [phone] [address] [place] [address] [id number] 2023 Unknown [id number] 2002 Unknown [id number] 2.16.840.1.380760.3.579. 2.9 2002 Unknown [id number] 2.16.840.1.238393.3.579. 2.1258 2002 Unknown [id number] 2.16.840.1.195718.3.579. 2.1258 2002 Unknown [id number] 2.16.840.1.323181.3.579. 2.1258 2002 Unknown [id number] 2.16.840.1.704118.3.579. 2.1258 2002 Unknown [id number] 2.16.840.1.827060.3.579. 2.1258 2002 Unknown [id number] 2.16.840.1.973541.3.579. 2.1258 2002 Unknown [id number] 2.16840.1.964157.3.579. 2.1258 2002 Unknown [id number] 2.16840.1.380636.3.579. 2.1258 2002 Unknown [id number] 2.16840.1.607128.3.579. 2.1258 2002 Unknown [id number] 2.16.840.1.605312.3.579. 2.1258 2002 Unknown [id number] 2.16840.1.204924.3.579. 2.1258 2002 Unknown [id number] 2.16840.1.715632.3.579. 2.1258 2002 Unknown [id number] 2.16.840.1.986404.3.579. 2.1258 2002 Unknown [id number] 2.16.840.1.607520.3.579. 2.1258 2002 Unknown [id number] 2.16840.1.853426.3.579. 2.1259 Social History Date Type Detail Facility Tobacco smoking stat [facility] Tobacco smoking consumption unknown [facility] Start: 05-08-2024 [facility] Start: 2002 Sex assigned at Not on file [facility] Start: 07-25-2024 Gender identity Not on file [facility] Start[facility] 07-25-2024 [facility] Start: 07-25-2024 Tobacco use and exposure Smokeless t obacco non-user [facility] Start: 07-25-2024 End: 01-11-2025 Alcoholic beverage intake Ex-drinker (finding) [facility] Start: 07-25-2024 History of Social function [facility] Clinical Notes 06-23-2024 to 2025 Emmie Schmidt, [facility] - 2025 2:00 PM DONA Richardson - 01/11/2025 11:30 AM Nohelia Stephens [employer] - 01/04/2025 9:30 AM DONA Richardson - [...] nursing note reviewed. Exam conducted with a production repairer present. Vitals: There is no height or [...] Domenico Patel DO documented in this encounter [facility] 01-11-2025 History of Presen t illness Narrative [...] nursing note reviewed. Exam conducted with a production repairer present. Vitals: There is no height or [...] of: DONA Vieyra documented in this encounter [facility] 01-04-2025 History of Presen t illness Narrative [...] nursing note reviewed. Exam conducted with a production repairer present. Vitals: There is no height or [...] Domenico Patel DO documented in this encounter [facility] 12-21-2024 History of Presen t illness Narrative [...] nursing note reviewed. Exam conducted with a production repairer present. Vitals: There is no height or [...] of: DONA Vieyra documented in this encounter [facility] 12-06-2024 History of Presen t illness Narrative [...] nursing note reviewed. Exam conducted with a production repairer present. Vitals: There is no height or [...] Domenico Patel DO documented in this encounter [facility] 11-22-2024 History of Presen t illness Narrative [...] of: DONA Vieyra documented in this encounter [facility] 11-08-2024 History of Presen t illness Narrative [...] nursing note reviewed. Exam conducted with a production repairer present. Vitals: There is no height or [...] Domenico Patel DO documented in this encounter [facility] 10-23-2024 History of Presen t illness Narrative [...] of: DONA Vieyra documented in this encounter [facility] 09-21-2024 History of Presen t illness Narrative [...] nursing note reviewed. Exam conducted with a production repairer present. Vitals: There is no height or [...] Domenico Patel DO documented in this encounter [facility] 08-22-2024 History of Presen t illness Narrative [...] and aware referral will be made to [facility] for genetic Counseling. Referral will be completed and patient will then be notified. Gloria Quiñonez LPN documented in this encounter [facility] 07-25-2024 History of Presen t illness Narrative [...] nursing note reviewed. Exam conducted with a production repairer present. Vitals: There is no height or [...] undercooked meat, and stay away from [facility]. Patient has been consulted regarding any further do's and don'ts of . Patient voiced understanding and all questions and concerns were answered. Orders Placed This Encounter Procedures POCT urinalysis dipstick manually resulted Follow Up: Patient is to return in 4 weeks for routine OB appointment. Documented by Emmie Schmidt LPN on behalf of: Domenico Patel DO documented in this encounter [facility] 06-23-2024 History of Presen t illness Narrative [...] undercooked meat, and stay away from [facility]. Patient has also been advised to [...] by: Lisha Chapin documented in this encounter [facility] Evaluation note Diagnosis Second trimester state, [...] section and content) DATE CREATED AUTHOR 11/03/2021 [facility] DATE CREATED AUTHOR AUTHOR'S ORGANIZ ATION 01/19/2025 [facility] EPIC Reason for Visit (unrecogniz [...] BE BASED ON THE PRIMARY CLINICAL RECORDS. [facility] [employer] [facility]. provides no warranty or guarantee of the accuracy or completeness of information in this document.
[2025-01-26 10:55] VITALS: BP 139/82; PULSE 116; TEMP 36.8
--- NOTE | 2025-01-26 11:36 | PC.NURSE ---
1115- Mother states she is putting to breast, baby is not sustaining a latch, gang drill operator instructs mother to bottle feed 30 ml of Similac or breastmilk. This nurse attempts to latch baby to breast pushes away and cries. Discusses use of neotech bridge feeder, agrees to trying. to breast with system, latches and vigorous suck. Mother syringes 15 ml of Similac while infant nursing at breast. Infant remains at breast with vigorous suck and swallow noted. Breast softens with feeding. Infant to other breast without shield, latches but pulls away, shield applied without formula, infants maintains latch with vigorous suck and swallow for 10 minutes. Plan of care discussed with mother to attempt to latch baby without shield, if does not latch, place shield with formula or breastmilk through the syringe system. Pump after feedings if infant does not sustain latch. Mother verbalizes understanding. Will follow up next or call sooner for issues.
== END 2025-01-26 09:13 | disposition home or self-care (01) ==
LOC: FBCO 09:22
PROVIDERS: Visit Provider Obstetrics & Gynecology
DX: Z39.1 Encounter for care and examination of lactating mother (principal)
CPT/HCPCS: G0463

== ENCOUNTER 2025-02-09 16:52 | Outpatient (OUT) | payer BC, SELFPAY ==
--- NOTE | 2025-02-01 14:12 | PC.NURSE ---
Britton arrives for follow up with milagro Belcher, states feeding are going, it's complicated. She is no longer using the bridge shield with formula, putting baby to breast 3-4 times a day with a regular Medela shield, offering formula bottles 3-4 times a day as suggested by tomography technologist at last appointment. Britton states baby is peeing frequently, stools every 4 days, yellow seedy stools. Britton discusses feeling like peds office is pushing formula like they're paid by the formula companies. weight yesterday at peds was 7#10, one pound down from weight at 8#10. Baby appears well hydrated, alert, active, and quiet, tracks auditory stimuli. Baby starts to root and fuss after several minutes, and RN encourages mom to put baby to breast. Shield applied, RN reapplies and provides patient with education on proper placement. Baby latches easily, though shallow and short sucks. RN offers to readjust latch, baby resistant to deeper latch. Shield removed with mom's permission, baby to breast easily without shield. Britton states this usually doesn't happen at home, she always nurses with the shield on. Baby continues to nurse well, RN listens for frequent swallows, baby nurses for 12 minutes before coming off the breast on her own. placed in clean diaper, weight obtained and is 3.490kg today, 7#11oz, weight loss at 10.4%. Britton reassured by increase in weight from yesterday. Discussed frequency of feeds, baby is eating every 2-3 hours. RN discusses feeding plan molding fitter, Britton plans to breastfeed exclusively, would like to only give breastmilk if able and would not like to give baby formula. Encouraged to keep open communication with tomography technologist, ways to increase milk supply over the next week, and to put baby to breast as freqently as able, about every two hours, without the shield. If infant is unable to latch without shield, let baby come to breast and nurse, both sides, then pump both sides for 15 minutes after. If baby is still unsettled, offer formula as needed after expressed milk is gone. Britton very receptive to plan, reassured and encouraged. latches on right breast, nurses well for 15 minutes, comes off breast. post feed weight 3.550kg, 60g increase from one side of nursing. Reassurance given, patient to return next Wednesday after implementing supply increasing routine. Appointment scheduled for 1245 on 02/09/25.
--- NOTE | 2025-02-09 16:58 | PC.NURSE ---
Patient states feedings have been going well, baby is now back to weight as of Wednesday of this week at the pediatricians office. Baby is coming to breast or getting expressed milk with every feed with the exception of one midnight feed she gives formula, mostly because she is tired and just wants to go back to sleep. Reassurance and encouragement given. Patient states she is putting baby to breast ad marty during the day, pumping a few times a day, was not impressed with power pumping and the way it affected her supply. Instructed to stop power pumping, as she was only getting an extra 1/2 oz if she doesn't want to keep doing it. Baby to scale and weight obtained, 8#12 today 3.98kg, an increase from last visit (3.55kg). Latching tips offered as baby goes to breast on left side, patient reports some discomfort with latching on this side. Latch adjusted by RN, patient reports increase in comfort. discussed asymmetric latch with patient and demonstrated with teach back as she readjusts baby at breast. Infant feeds well for 10 minutes, falls asleep. Mom moves baby to right side, latches easily and nurses for additional 10 minutes before falling asleep. Discussed ways to observe satiety in , discussed regular feeding pattern and cluster feeding for breastfed infants. Patient reports she is feeling much more comfortable about now, offered to make follow up appointment with her for next week as additional follow up and pt declines at this time, states she can always call if she needs to be seen. IBCLC information given to patient via card, phone number emphasized to call to make appointment if needs. Verbalizes understanding.
== END 2025-02-09 17:09 | disposition home or self-care (01) ==
LOC: FBCO 16:52
PROVIDERS: Visit Provider Obstetrics & Gynecology
DX: Z39.1 Encounter for care and examination of lactating mother (principal)